=== PATIENT | female | born 1940 | race Caucasian/White ===

== ENCOUNTER 2017-01-14 22:24 | Inpatient (IN) | payer OTHER ==
[~2017-01-14] VITALS: Ht 162.6 cm; Wt 61.3 kg
[2017-01-14] MEDS ORDERED: TRAM-10 PO (22:42)
[2017-01-14] MEDS ORDERED: OXYC-164 PO (22:42)
[2017-01-14] MEDS ORDERED: ACET325T96 PO (22:50)
[2017-01-14] MEDS ORDERED: SODIENE PR (22:50)
[2017-01-14] MEDS ORDERED: MOML PO (22:50)
[2017-01-14] MEDS ORDERED: BISA10SU3 PR (22:50)
[2017-01-14] MEDS ORDERED: ASPITAB PO (22:50)
[2017-01-14] MEDS ORDERED: ONDA4TAB46 PO (22:50)
[2017-01-14] MEDS ORDERED: POTA20TA13 PO (22:54)
[2017-01-14] MEDS ORDERED: MELA3TAB PO (22:54)
[2017-01-14] MEDS ORDERED: CARV3.122 PO (22:54)
[2017-01-14] MEDS ORDERED: PANT40TA PO (22:54)
[2017-01-14] MEDS ORDERED: FERR325T5 PO (22:54)
[2017-01-14] MEDS ORDERED: SENN-61 PO (22:54)
[2017-01-14] MEDS ORDERED: SODIUM CHLORIDE 0.9% 1000ML 1,000 ML IV STA (23:01)
[2017-01-14 23:22] LABS: BASO % 0.3 %; BASO ABS # 0.02 K/uL (0-0.2); COMPLETE YES; HEMATOCRIT 26.9 % (37-47); IG% 0.3 %; LYMPH % 17.8 %; LYMPH ABS # 1.35 K/uL (1.2-3.4); MEAN CELL VOLUME 87.1 fL (80-100); MEAN CORPUSCULAR HEMOGLOBIN 29.8 pg (25-34); MEAN CORPUSCULAR HGB CONC 34.2 g/dl (32-36); MEAN PLATELET VOLUME 9.5 fL (7.4-10.4); MONO % 5.1 %; NEUT % 76.5 %; PLATELET COUNT 260 K/uL (130-400); RED BLOOD COUNT 3.09 M/uL (4.2-5.4)
[2017-01-14 23:27] LABS: URINE APPEARANCE TURBID (CLEAR); URINE BILIRUBIN NEG (NEG); URINE COLOR DK YELLOW; URINE EPITHELIAL CELL AUTO 20-30 /lpf (0-5); URINE NITRITE NEG (NEG); URINE SPECIFIC GRAVITY 1.019 (1.000-1.030); UROBILINOGEN NEG (NEG); ZZURINE CULT IF INDIC CATH YES
[2017-01-14 23:31] LABS: MANUAL MICROSCOPIC REQUIRED? NO; REVIEW REQ? YES
[2017-01-14 23:33] LABS: INR 1.6 (0.9-1.1); PARTIAL THROMBOPLASTIN RATIO 1.1; PROTHROMBIN TIME (PATIENT) 17.3 SECONDS (9.0-12.0)
[2017-01-14 23:40] LABS: BUN/CREATININE RATIO 24.1 (10-20); CALCIUM 8.4 mg/dl (8.5-10.1); CREATININE 1.7 mg/dl (0.60-1.20); MAGNESIUM 1.9 mg/dl (1.8-2.4); POTASSIUM 3.2 mmol/L (3.5-5.1)
[2017-01-14 23:42] LABS: URINE PATH CASTS 0-3 GRANULAR CASTS /lpf (0)
[2017-01-15] VITALS (10 sets, daily range): BP systolic 153–189; BP diastolic 84–97; PULSE 90–101; TEMP 36.5–36.7; O2SAT 97–100; Ht 162.6 cm; Wt 61.3 kg
[2017-01-15 00:04] LABS: THYROID STIMULATING HORMONE 1.46 uIu/ml (0.300-4.500)
[2017-01-15] MEDS ORDERED: CEFTRIAXONE SOD INJ 1 GM ADDVIAL IV STA (01:15)
--- NOTE | 2017-01-15 01:54 | EMERGENCY ROOM VISIT NOTE ---
History Report prepared by Elodia: Joey Segal Under the Supervision of: Dr. Lawrence Guerrero D.O. First contact with patient: 23:01 Chief Complaint: ILLNESS Stated Complaint: LETHARGIC History of Present Illness The patient is a 76 year old female who presents to the Emergency Room with complaints of constant lethargy beginning one day prior to arrival. As per nursing note, the patient was seen at [facility] yesterday for sepsis/ JAJA. It is noted the patient was discharged yesterday to [facility] for rehabilitation. The family states the patient is not at baseline, and they wanted her transferred to [facility] for evaluation. The group home reported no intake since the patient's arrival and no urine output in at least eight hours. It is noted the patient was vomiting today and had decreased mental status. The patient denies a headache and abdominal pain. The history is limited secondary to the patient's altered mental status. Source of History: other (nursing note) History Limited By: AMS Onset: one day CRECHE ATTENDANT Position: other (global) Quality: other (lethargy) Timing: constant Associated Symptoms: + vomiting, No abdominal pain, No headache Note: Associated symptoms: decrease mental status. Review of Systems The HPI and ROS are limited secondary to the patient's altered mental status. Past Medical & Surgical Medical Problems: (1) Acute renal failure (2) JAJA (acute kidney injury) (3) Elevated troponin (4) Poor fluid intake (5) Sepsis Family History Patient reports no known family medical history. Social History Smoking Status: Never Smoker Housing Status: group home Occupation Status: retired Current/Historical Medications Scheduled Carvedilol (Coreg), 3.125 MG PO BID Ferrous Sulfate (Ferrous Sulfate), 325 MG PO DAILY Melatonin (Melatonin), 3 MG PO HS Pantoprazole (Protonix), 40 MG PO DAILY Potassium Chloride Microencaps (Potassium Chloride Er), 20 MEQ PO DAILY Senna (Senokot), 17.2 MG PO DAILY Scheduled PRN Acetaminophen Tab (Tylenol), 650 MG PO Q4H PRN for Pain Bisacodyl (Dulcolax), 1 SUPP AK UD PRN for Constipation Diphenhydramine Citrate-Aspiri (Vijaya Pm), 1 TAB PO Q6H PRN for Itching Magnesium Hydroxide (Milk Of Magnesia), 30 ML PO UD PRN for Constipation Ondansetron Hcl (Zofran), 4 MG PO Q6H PRN for Nausea Oxycodone Hcl (Oxycodone Hcl), 10 MG PO Q8 PRN for Severe Pain Sodium Phosphate/Biphosphate (Fleet Enema), 1 EA AK UD PRN for Constipation Tramadol (Ultram), 50 MG PO Q8H PRN for Moderate Pain Allergies Coded Allergies: No Known Allergies (Unverified , 01/14/17) Physical Exam Vital Signs Date Time Temp Pulse Resp B/P Pulse Ox O2 Delivery O2 Flow Rate FiO2 01/14/17 23:50 90 16 147/85 100 Room Air 01/14/17 22:50 92 01/14/17 22:44 36.8 95 16 159/94 100 Room Air Physical Exam VITAL SIGNS: were reviewed as above. GENERAL:Non-toxic in appearance. SKIN: Warm dry and pink. HEAD: Normocephalic and atraumatic. OROPHARYNX: Is clear and moist NECK: Supple without lymphadenopathy or meningismus. LUNGS: clear. HEART: Regular rate and rhythm. ABDOMEN: Soft and nontender. EXTREMITIES: Warm and well perfused. NEUROLOGICALLY: Patient is drowsy but follows commands and answers questions appropriately. Denies any pain. Cranial nerves 2-12 are intact. There is no pronator drift. Cerebellar testing is within normal limits. There is no nystagmus. There is no facial droop. Speech is clear. Vision is grossly normal. MUSCULOSKELETAL: Good muscle tone. No evidence of trauma. Medical Decision & Procedures ER Provider Diagnostic Interpretation: Radiology results as stated below per my review and radiologist interpretation: CHEST XRAY: No acute disease. No pneumothorax. No pneumonia. CT HEAD: No ICH, mass effect or edema. No evidence of acute cortical stroke. Periventricular small vessel ischemic change. Visualized sinuses and mastoid air cells are clear. Radiologist: Miky Crocker MD Study ready at 23:47 and initial results transmitted at 00:05 Laboratory Results 01/14/17 23:15 Red Blood Count 3.09, Mean Corpuscular Volume 87.1, Mean Corpuscular Hemoglobin 29.8, Mean Corpuscular Hemoglobin Concent 34.2, Mean Platelet Volume 9.5, Neutrophils (%) (Auto) 76.5, Lymphocytes (%) (Auto) 17.8, Monocytes (%) (Auto) 5.1, Eosinophils (%) (Auto) 0.0, Basophils (%) (Auto) 0.3, Neutrophils # (Auto) 5.82, Lymphocytes # (Auto) 1.35, Monocytes # (Auto) 0.39, Eosinophils # (Auto) 0.00, Basophils # (Auto) 0.02 01/14/17 23:15 Test 01/14/17 22:30 01/14/17 23:15 Urine Color DK YELLOW Urine Appearance TURBID (CLEAR) Urine pH 5.0 (4.5-7.5) Urine Specific [place] 1.019 (1.000-1.030) Urine Protein 1+ (NEG) Urine Glucose (UA) NEG (NEG) Urine Ketones 1+ (NEG) Urine Occult Blood 2+ (NEG) Urine Nitrite NEG (NEG) Urine Bilirubin NEG (NEG) Urine Urobilinogen NEG (NEG) Urine Leukocyte Esterase MODERATE (NEG) Urine WBC (Auto) >30 /hpf (0-5) Urine RBC (Auto) 0-4 /hpf (0-4) Urine Hyaline Casts (Auto) 1-5 /lpf (0-5) Urine Epithelial Cells (Auto) 20-30 /lpf (0-5) Urine Bacteria (Auto) NEG (NEG) Urine Pathogenic Casts 0-3 GRANULAR CASTS /lpf (0) Urine Yeast (Auto) BUD W/ HYPHAE (NONE PRSENT) White Blood Count 7.60 K/uL (4.8-10.8) Red Blood Count 3.09 M/uL (4.2-5.4) Hemoglobin 9.2 g/dL (12.0-16.0) Hematocrit 26.9 % (37-47) Mean Corpuscular Volume 87.1 fL (80-100) Mean Corpuscular Hemoglobin 29.8 pg (25-34) Mean Corpuscular Hemoglobin Concent 34.2 g/dl (32-36) Platelet Count 260 K/uL (130-400) Mean Platelet Volume 9.5 fL (7.4-10.4) Neutrophils (%) (Auto) 76.5 % Lymphocytes (%) (Auto) 17.8 % Monocytes (%) (Auto) 5.1 % Eosinophils (%) (Auto) 0.0 % Basophils (%) (Auto) 0.3 % Neutrophils # (Auto) 5.82 K/uL (1.4-6.5) Lymphocytes # (Auto) 1.35 K/uL (1.2-3.4) Monocytes # (Auto) 0.39 K/uL (0.11-0.59) Eosinophils # (Auto) 0.00 K/uL (0-0.5) Basophils # (Auto) 0.02 K/uL (0-0.2) RDW Standard Deviation 42.4 fL (36.4-46.3) RDW Coefficient of Variation 13.3 % (11.5-14.5) Immature Granulocyte % (Auto) 0.3 % Immature Granulocyte # (Auto) 0.02 K/uL (0.00-0.02) Nucleated RBC Absolute Count (auto) 0.03 K/uL (0-0) Nucleated Red Blood Cells % 0.4 % Prothrombin Time 17.3 SECONDS (9.0-12.0) Prothromb Time International Ratio 1.6 (0.9-1.1) Activated Partial Thromboplast Time 27.3 SECONDS (21.0-31.0) Partial Thromboplastin Ratio 1.1 Anion Gap 10.0 mmol/L (3-11) Est Creatinine Clear Calc Drug Dose 25.1 ml/min Estimated GFR () 33.8 Estimated GFR (Non- 29.2 BUN/Creatinine Ratio 24.1 (10-20) Calcium Level 8.4 mg/dl (8.5-10.1) Magnesium Level 1.9 mg/dl (1.8-2.4) Total Bilirubin 0.9 mg/dl (0.2-1) Direct Bilirubin 0.2 mg/dl (0-0.2) Aspartate Amino Transf (AST/SGOT) 16 U/L (15-37) Alanine Aminotransferase (ALT/SGPT) 15 U/L (12-78) Alkaline Phosphatase 108 U/L (45-117) Total Creatine Kinase 87 U/L (26-192) Creatine Kinase MB 1.7 ng/ml (0.5-3.6) Creatine Kinase MB Ratio 2.0 (0-3.0) Troponin I 0.054 ng/ml (0-0.045) Total Protein 6.6 gm/dl (6.4-8.2) Albumin 2.8 gm/dl (3.4-5.0) Lipase 315 U/L (73-393) Thyroid Stimulating Hormone (TSH) 1.460 uIu/ml (0.300-4.500) Laboratory results as stated above per my review. Medications Administered Medications (Trade) Dose Ordered Sig/Donald Route Start Time Stop Time Status Last Admin Dose Admin Sodium Chloride (Nss 1000ml) 1,000 ml @ 300 mls/hr Q3H20M STAT IV 01/14/17 23:01 01/15/17 02:20 01/14/17 23:01 300 MLS/HR ECG Indication: altered mental status Rate (beats per minute): 95 Findings: T-wave inversion (Lateral), no ectopy, other (no acute injury) ED Course 2300: Previous medical records were reviewed. The patient was evaluated in room B7. A complete history and physical examination was performed. 2301: Ordered Sodium Chloride 1,000 ml @ 300 mls/hr IV. 0115: Ordered Rocephin Ing 1 gm IV. 1332: I spoke to Anuja Roa (Internal Medicine) about the patient's case, and she will follow the patient for further evaluation. Medical Decision Differential includes acute coronary syndrome, myocardial infarction, CVA, TIA, anemia, infection, pneumonia, UTI, pyelonephritis, poor nutrition, dehydration, electrolyte disturbance,hypoglycemia. This is a 76-year-old female who presents from a local nursing rehabilitation facility. The patient was discharged there from [facility] on the . The patient has not taken any oral fluids or food since she was admitted at the rehabilitation facility. She's had a progressive decline in alertness over the past 2 days. She was sent here for evaluation at the family' s request. The patient is somewhat of a poor historian but does respond to verbal stimuli. When asked if anything bothers her, she responds no. She denied having headaches, chest pains, shortness of breath or abdominal pains. She does not report any nausea or vomiting. She is not had fevers and she is afebrile here. Her vital signs are stable. Her physical exam did not reveal any focal deficits. Her abdomen is soft and nontender. The lungs were clear. Chest x-ray did not show acute disease. EKG shows some T-wave inversions laterally. Cardiac enzymes are slightly elevated. Her sodium, BUN and creatinine are all somewhat elevated. Urine suggest possible infection. The patient was treated with IV Rocephin and IV fluids. She will be seen by the hospitalist for further inpatient evaluation. Consults Time Called: 1326 Consulting Physician: Anuja Roa (Internal Medicine) Returned Call: [phone] I spoke to Anuja Roa (Internal Medicine) about the patient's case, and she will follow the patient for further evaluation. Impression Primary Impression: Lethargic Additional Impressions: UTI (urinary tract infection) Dehydration Renal insufficiency Hypernatremia Scribe Attestation The scribe's documentation has been prepared under my direction and personally reviewed by me in its entirety. I confirm that the note above accurately reflects all work, treatment, procedures, and medical decision making performed by me. Departure Information Dispostion Being Evaluated By Hospitalist (Anuja Roa (Internal Medicine) ) Referrals Shoaib Kelly MD (PCP) Problem Qualifiers
[2017-01-15] MEDS: SODIUM CHLORIDE 0.9% 1000ML 1,000 ML IV SCH ×2 (03:09→11:01)
--- NOTE | 2017-01-15 03:14 | History and Physical ---
History & Physical Date & Time of Service: Jan 15, 2017 at 03:13 Chief Complaint: Acute Renal Failure, Elevated Troponin, Poor Fluid Primary Care Physician: Shoaib Kelly .MD History of Present Illness This is a 76 yo F sent to [facility] with complain of generalized weakness, dehydration , poor PO intake pt was recently admitted to [facility] for Sepsis /JAJA , discharged to [facility] yesterday for continued rehab in the alf -pt was found to be confused, increased somnolence , lethargy , no PO intake since arrival to [place] , with decreased urine out put unable to get any history form the patient for confusion , altered mental status pt was found to be severely dehydrated with JAJA , hypernatremia possible UTI Past Medical/Surgical History Medical Problems: (1) JAJA (acute kidney injury) Status: Resolved (2) Sepsis Status: Resolved Family History Patient reports no known family medical history. Social History Smoking Status: Never Smoker Occupational Status: retired Allergies Coded Allergies: No Known Allergies (Unverified , 01/14/17) Home Medications Scheduled Carvedilol (Coreg), 3.125 MG PO BID Ferrous Sulfate (Ferrous Sulfate), 325 MG PO DAILY Melatonin (Melatonin), 3 MG PO HS Pantoprazole (Protonix), 40 MG PO DAILY Potassium Chloride Microencaps (Potassium Chloride Er), 20 MEQ PO DAILY Senna (Senokot), 17.2 MG PO DAILY Scheduled PRN Acetaminophen Tab (Tylenol), 650 MG PO Q4H PRN for Pain Bisacodyl (Dulcolax), 1 SUPP MT UD PRN for Constipation Diphenhydramine Citrate-Aspiri (Vijaya Pm), 1 TAB PO Q6H PRN for Itching Magnesium Hydroxide (Milk Of Magnesia), 30 ML PO UD PRN for Constipation Ondansetron Hcl (Zofran), 4 MG PO Q6H PRN for Nausea Oxycodone Hcl (Oxycodone Hcl), 10 MG PO Q8 PRN for Severe Pain Sodium Phosphate/Biphosphate (Fleet Enema), 1 EA MT UD PRN for Constipation Tramadol (Ultram), 50 MG PO Q8H PRN for Moderate Pain Review of Systems unable to obtain due to altered mental status Physical Exam Vital Signs Date Time Temp Pulse Resp B/P Pulse Ox O2 Delivery O2 Flow Rate FiO2 01/15/17 02:23 92 18 149/89 100 01/14/17 23:50 90 16 147/85 100 Room Air 01/14/17 22:50 92 01/14/17 22:44 36.8 95 16 159/94 100 Room Air General Appearance: no apparent distress Eyes: sclerae normal ENT: + pertinent finding (dry oral mucosa ) Respiratory/Chest: lungs clear, normal breath sounds, no respiratory distress Cardiovascular: regular rate, rhythm Abdomen/GI: non tender, soft Extremities/Musculoskelatal: no pedal edema Neurologic/Psych: + disoriented, + pertinent finding (lethergic , unable to answer simple questions ) Diagnostics Laboratory Results Results Past 24 Hours Test 01/14/17 22:30 01/14/17 23:15 Range/Units Urine Color DK YELLOW Urine Appearance TURBID CLEAR Urine pH 5.0 4.5-7.5 Urine Specific [place] 1.019 1.000-1.030 Urine Protein 1+ NEG Urine Glucose (UA) NEG NEG Urine Ketones 1+ NEG Urine Occult Blood 2+ NEG Urine Nitrite NEG NEG Urine Bilirubin NEG NEG Urine Urobilinogen NEG NEG Urine Leukocyte Esterase MODERATE NEG Urine WBC (Auto) >30 0-5 /hpf Urine RBC (Auto) 0-4 0-4 /hpf Urine Hyaline Casts (Auto) 1-5 0-5 /lpf Urine Epithelial Cells (Auto) 20-30 0-5 /lpf Urine Bacteria (Auto) NEG NEG Urine Pathogenic Casts 0-3 GRANULAR CASTS 0 /lpf Urine Yeast (Auto) BUD W/ HYPHAE NONE PRSENT White Blood Count 7.60 4.8-10.8 K/uL Red Blood Count 3.09 4.2-5.4 M/uL Hemoglobin 9.2 12.0-16.0 g/dL Hematocrit 26.9 37-47 % Mean Corpuscular Volume 87.1 80-100 fL Mean Corpuscular Hemoglobin 29.8 25-34 pg Mean Corpuscular Hemoglobin Concent 34.2 32-36 g/dl Platelet Count 260 130-400 K/uL Mean Platelet Volume 9.5 7.4-10.4 fL Neutrophils (%) (Auto) 76.5 % Lymphocytes (%) (Auto) 17.8 % Monocytes (%) (Auto) 5.1 % Eosinophils (%) (Auto) 0.0 % Basophils (%) (Auto) 0.3 % Neutrophils # (Auto) 5.82 1.4-6.5 K/uL Lymphocytes # (Auto) 1.35 1.2-3.4 K/uL Monocytes # (Auto) 0.39 0.11-0.59 K/uL Eosinophils # (Auto) 0.00 0-0.5 K/uL Basophils # (Auto) 0.02 0-0.2 K/uL RDW Standard Deviation 42.4 36.4-46.3 fL RDW Coefficient of Variation 13.3 11.5-14.5 % Immature Granulocyte % (Auto) 0.3 % Immature Granulocyte # (Auto) 0.02 0.00-0.02 K/uL Nucleated RBC Absolute Count (auto) 0.03 0-0 K/uL Nucleated Red Blood Cells % 0.4 % Prothrombin Time 17.3 9.0-12.0 SECONDS Prothromb Time International Ratio 1.6 0.9-1.1 Activated Partial Thromboplast Time 27.3 21.0-31.0 SECONDS Partial Thromboplastin Ratio 1.1 Sodium Level 151 136-145 mmol/L Potassium Level 3.2 3.5-5.1 mmol/L Chloride Level 110 98-107 mmol/L Carbon Dioxide Level 31 21-32 mmol/L Anion Gap 10.0 3-11 mmol/L Blood Urea Nitrogen 41 7-18 mg/dl Creatinine 1.70 0.60-1.20 mg/dl Est Creatinine Clear Calc Drug Dose 25.1 ml/min Estimated GFR () 33.8 Estimated GFR (Non- 29.2 BUN/Creatinine Ratio 24.1 10-20 Random Glucose 119 70-99 mg/dl Calcium Level 8.4 8.5-10.1 mg/dl Magnesium Level 1.9 1.8-2.4 mg/dl Total Bilirubin 0.9 0.2-1 mg/dl Direct Bilirubin 0.2 0-0.2 mg/dl Aspartate Amino Transf (AST/SGOT) 16 15-37 U/L Alanine Aminotransferase (ALT/SGPT) 15 12-78 U/L Alkaline Phosphatase 108 45-117 U/L Total Creatine Kinase 87 26-192 U/L Creatine Kinase MB 1.7 0.5-3.6 ng/ml Creatine Kinase MB Ratio 2.0 0-3.0 Troponin I 0.054 0-0.045 ng/ml Total Protein 6.6 6.4-8.2 gm/dl Albumin 2.8 3.4-5.0 gm/dl Lipase 315 73-393 U/L Thyroid Stimulating Hormone (TSH) 1.460 0.300-4.500 uIu/ml Microbiology Results 01/14/17 Urine Culture, Received Pending CXR normal Impression Assessment and Plan DEHYDRATION /ACUTE KIDNEY INJURY : possible due to poor PO intake started with IV hydration Cr elevated to 1.7 follow PRP avoid nephrotoxins Nephrology eval requested MILD ELEVATION OF TROPONIN : possible due to JAJA pt unable to verbalize chest discomfort EKG wave inversion in lat leads monitor in Tele serial cardiac markers resting ECHO ordered CONFUSION /LETHARGY: due to metabolic encephalopathy due to above cont to correct for dehydration monitor clinically caution for sun downing POSSIBLE UTI : UA grossly positive possible causing poor PO intake /dehydration IV Rocephin empirically follow urine culture HYPERNATREMIA: Due to above IV F with NSS follow PRP closely avoid rapid correction nephrology consulted CODE STATUS : full code DVT PROPHYLAXIS : sub q heparin DISPOSITION : recently discharged to rehab PT/OT eval requested return to [facility] for continued rehab once medically stable social service consulted for discharge planning VTE Prophylaxis VTE Risk Assessment Done? Y/N: Yes Risk Level: Moderate
[2017-01-15] MEDS ORDERED: ONDANSETRON 4 MG TAB PO PRN (03:15)
[2017-01-15] MEDS ORDERED: POLYETHYLENE (MIRALAX) 17 GM PACK PO PRN (03:15)
[2017-01-15] MEDS ORDERED: MAGNESIUM HYDROXIDE SUSP 30 ML UDC PO PRN ×2 (03:15)
[2017-01-15] MEDS ORDERED: OXYCODONE HCL IR 5 MG TAB (IMMEDIATE RELEASE) PO PRN (03:15)
[2017-01-15] MEDS ORDERED: ALUMINUM/MAGNESIUM/SIMETH (MAALOX MAX) 30 ML UDC PO PRN (03:15)
[2017-01-15] MEDS ORDERED: NITROGLYCERIN 0.4 MG SL PER TAB CHARGE SL PRN (03:15)
[2017-01-15] MEDS ORDERED: TRAMADOL HCL 50 MG TAB PO PRN (03:15)
[2017-01-15] MEDS ORDERED: ACETAMINOPHEN 325 MG TAB PO PRN ×2 (03:15)
[2017-01-15] MEDS: HEPARIN SOD 5000 UNIT/0.5 ML CARP SQ SCH ×3 (05:50→21:20)
--- NOTE | 2017-01-15 06:18 | DIAGNOSTIC IMAGING REPORT ---
CHEST ONE VIEW PORTABLE CLINICAL HISTORY: Altered mental status. COMPARISON STUDY: No previous studies for comparison. FINDINGS: The heart is normal in size. There is aortic tortuosity/ectasia. There is no focal pulmonary consolidation. There is no overt failure. There are no pleural effusions.[ IMPRESSION: No active disease in the chest. Electronically signed by: Contrersa Lowe M.D. 01/15/2017 6:16 AM Dictated Date/Time: 01/15/2017 6:15 AM
--- NOTE | 2017-01-15 06:46 | DIAGNOSTIC IMAGING REPORT ---
CT HEAD WITHOUT CONTRAST (CT) CLINICAL HISTORY: Acute change in mental status COMPARISON STUDY: No previous studies for comparison. TECHNIQUE: Axial CT of the brain is performed from the vertex to the skull base. IV contrast was not administered for this examination. CT DOSE: 537.48 mGy.cm FINDINGS: No intra or extra-axial mass lesions are visualized. There is no CT evidence of acute cortical infarction. There is no evidence of midline shift. There is no acute hemorrhage. No calvarial fractures are visualized. There are patchy white matter hypodensities likely on a small vessel basis. There is no evidence of pathologic ventricular dilatation. There is no evidence of acute sinusitis IMPRESSION: No acute intracranial findings Electronically signed by: Contreras Lowe M.D. 01/15/2017 6:44 AM Dictated Date/Time: 01/15/2017 6:44 AM
[2017-01-15] MEDS: POTASSIUM CHLORIDE 20 MEQ TABCR PO SCH (07:36)
[2017-01-15] MEDS: CARVEDILOL 3.125 MG TAB PO SCH ×2 (07:36→19:47)
[2017-01-15] MEDS: FERROUS SULFATE 325 MG TAB PO SCH (07:37)
[2017-01-15] MEDS: PANTOprazole SOD 40 MG TAB PO SCH (07:37)
[2017-01-15] MEDS: SENNA 8.6 MG TAB PO SCH (07:37)
[2017-01-15 08:23] LABS: CKMB/CK RATIO 2.6 (0-3.0)
[2017-01-15 10:05] LABS: BUN/CREATININE RATIO 25.1 (10-20); CALCIUM 8.6 mg/dl (8.5-10.1); CREATININE 1.5 mg/dl (0.60-1.20); POTASSIUM 3.2 mmol/L (3.5-5.1)
--- NOTE | 2017-01-15 12:08 | Progress Note ---
Internal Med Progress Note Date of Service: Jan 15, 2017. Provider Documentation: SUBJECTIVE: The patient was seenand examined Pleasantly confused,Pulled out IVF Denies any complaints OBJECTIVE: Vital Signs-as noted below Exam: General-no distress at rest Eyes-normal ENT-normal Neck-supple Lungs-Clear to auscultate bilaterally Heart-Regular,no murmur appreciated Abdomen-Benign,no masses,bowel sound present Extremities-No edema Neuro-AA Pleasantly confused Generally weak and Lethargic Lab data as noted below. ASSESSMENT & PLAN: ACUTE KIDNEY INJURY Secondary to DEHYDRATION due to poor oral intake Has been on IVF Advised more fluid orally Creatinine is improved to 1.50 from 1.70 Avoid nephrotoxins Nephrology eval requested HYPERNATREMIA: Due to not been eating and or drinking IV F with NSS Remains high at 152 Continue IFV and increase oral intake MILD ELEVATION OF TROPONIN : possible due to JAJA pt unable to verbalize chest discomfort EKG wave inversion in lat leads Doubt any ACS CONFUSION /LETHARGY: Likely due to metabolic encephalopathy due to above Cont to correct for dehydration Monitor POSSIBLE UTI : UA grossly positive possible causing poor PO intake /dehydration IV Rocephin empirically follow urine culture -pending CODE STATUS : full code DVT PROPHYLAXIS : sub q heparin DISPOSITION : recently discharged to rehab PT/OT eval requested return to [facility] for continued rehab once medically stable social service consulted for discharge planning DVT PROPHYLAXIS [] DISPOSITION [] Vital Signs: Date Time Temp Pulse Resp B/P Pulse Ox O2 Delivery O2 Flow Rate FiO2 01/15/17 08:00 100 Room Air 01/15/17 07:56 36.6 90 16 166/85 100 Room Air 01/15/17 04:00 100 Room Air 01/15/17 03:03 36.5 94 28 153/84 100 Room Air 01/15/17 02:23 92 18 149/89 100 01/14/17 23:50 90 16 147/85 100 Room Air 01/14/17 22:50 92 01/14/17 22:44 36.8 95 16 159/94 100 Room Air Lab Results: Results Past 24 Hours Test 01/14/17 22:30 01/14/17 23:15 01/15/17 06:45 01/15/17 09:13 Range/Units Urine Color DK YELLOW Urine Appearance TURBID CLEAR Urine pH 5.0 4.5-7.5 Urine Specific [place] 1.019 1.000-1.030 Urine Protein 1+ NEG Urine Glucose (UA) NEG NEG Urine Ketones 1+ NEG Urine Occult Blood 2+ NEG Urine Nitrite NEG NEG Urine Bilirubin NEG NEG Urine Urobilinogen NEG NEG Urine Leukocyte Esterase MODERATE NEG Urine WBC (Auto) >30 0-5 /hpf Urine RBC (Auto) 0-4 0-4 /hpf Urine Hyaline Casts (Auto) 1-5 0-5 /lpf Urine Epithelial Cells (Auto) 20-30 0-5 /lpf Urine Bacteria (Auto) NEG NEG Urine Pathogenic Casts 0-3 GRANULAR CASTS 0 /lpf Urine Yeast (Auto) BUD W/ HYPHAE NONE PRSENT White Blood Count 7.60 4.8-10.8 K/uL Red Blood Count 3.09 4.2-5.4 M/uL Hemoglobin 9.2 12.0-16.0 g/dL Hematocrit 26.9 37-47 % Mean Corpuscular Volume 87.1 80-100 fL Mean Corpuscular Hemoglobin 29.8 25-34 pg Mean Corpuscular Hemoglobin Concent 34.2 32-36 g/dl Platelet Count 260 130-400 K/uL Mean Platelet Volume 9.5 7.4-10.4 fL Neutrophils (%) (Auto) 76.5 % Lymphocytes (%) (Auto) 17.8 % Monocytes (%) (Auto) 5.1 % Eosinophils (%) (Auto) 0.0 % Basophils (%) (Auto) 0.3 % Neutrophils # (Auto) 5.82 1.4-6.5 K/uL Lymphocytes # (Auto) 1.35 1.2-3.4 K/uL Monocytes # (Auto) 0.39 0.11-0.59 K/uL Eosinophils # (Auto) 0.00 0-0.5 K/uL Basophils # (Auto) 0.02 0-0.2 K/uL RDW Standard Deviation 42.4 36.4-46.3 fL RDW Coefficient of Variation 13.3 11.5-14.5 % Immature Granulocyte % (Auto) 0.3 % Immature Granulocyte # (Auto) 0.02 0.00-0.02 K/uL Nucleated RBC Absolute Count (auto) 0.03 0-0 K/uL Nucleated Red Blood Cells % 0.4 % Prothrombin Time 17.3 9.0-12.0 SECONDS Prothromb Time International Ratio 1.6 0.9-1.1 Activated Partial Thromboplast Time 27.3 21.0-31.0 SECONDS Partial Thromboplastin Ratio 1.1 Sodium Level 151 152 136-145 mmol/L Potassium Level 3.2 3.2 3.5-5.1 mmol/L Chloride Level 110 116 98-107 mmol/L Carbon Dioxide Level 31 26 21-32 mmol/L Anion Gap 10.0 10.0 3-11 mmol/L Blood Urea Nitrogen 41 38 7-18 mg/dl Creatinine 1.70 1.50 0.60-1.20 mg/dl Est Creatinine Clear Calc Drug Dose 25.1 27.6 ml/min Estimated GFR () 33.8 39.4 Estimated GFR (Non- 29.2 34.0 BUN/Creatinine Ratio 24.1 25.1 10-20 Random Glucose 119 115 70-99 mg/dl Calcium Level 8.4 8.6 8.5-10.1 mg/dl Magnesium Level 1.9 1.8-2.4 mg/dl Total Bilirubin 0.9 0.2-1 mg/dl Direct Bilirubin 0.2 0-0.2 mg/dl Aspartate Amino Transf (AST/SGOT) 16 15-37 U/L Alanine Aminotransferase (ALT/SGPT) 15 12-78 U/L Alkaline Phosphatase 108 45-117 U/L Total Creatine Kinase 87 73 26-192 U/L Creatine Kinase MB 1.7 1.9 0.5-3.6 ng/ml Creatine Kinase MB Ratio 2.0 2.6 0-3.0 Troponin I 0.054 0.055 0-0.045 ng/ml Total Protein 6.6 6.4-8.2 gm/dl Albumin 2.8 3.4-5.0 gm/dl Lipase 315 73-393 U/L Thyroid Stimulating Hormone (TSH) 1.460 0.300-4.500 uIu/ml Microbiology Results 01/15/17 MRSA DNA Surveillance Screen - Final, Complete Specimen Negative for MRSA by DNA Probe 01/14/17 Urine Culture, Received Pending
[2017-01-15 13:16] LABS: BUN/CREATININE RATIO 28.6 (10-20); CALCIUM 8.3 mg/dl (8.5-10.1); CREATININE 1.3 mg/dl (0.60-1.20); POTASSIUM 3.3 mmol/L (3.5-5.1)
[2017-01-15 13:47] LABS: CKMB/CK RATIO 2.4 (0-3.0)
[2017-01-15 16:38] LABS: BUN/CREATININE RATIO 26.3 (10-20); CALCIUM 8.3 mg/dl (8.5-10.1); CREATININE 1.4 mg/dl (0.60-1.20); POTASSIUM 3.3 mmol/L (3.5-5.1)
--- NOTE | 2017-01-15 17:27 | Nephrology Consultation ---
Nephrology Consultation Date of Consultation: Jan 15, 2017. Attending Physician: Dr Gamez Requesting Physician: Dr Austin Reason for Consultation: hypernatremia, jaja on ckd History of Present Illness 76 year old female w/ unknown baseline MS, recent prolonged [facility] admission for JAJA and ? urosepsis, failure to thrive past 4-6 wks, R hip fracture after a fall s/p R IM nailing earlier this year sent from rehab less than 36 hrs after [facility] JAJA d/c d/t concerns about poor po intake, worsening MS w/ lethargy, concern for decreased UOP. She had been living at home with family nearby earlier this year, had significant N/V and difficulty taking po reliably leading to weakness and recurrent falls. She unfortunately fractured her R hip then underwent IM nail procedure and was d/c to rehab then home. She fell again and came to [facility] last month for admission from 01/03-01/13. Her baseline creatinine prior to that admission had been 0.8; on admission to [facility] was 2.6; trended down to 1.6 by hospital d/c. Treated for sepsis, possibly from UTI. Seen by GI, nephro, ENT, ortho, critical care that admission. No EGD felt necessary, though esophagogram showed distal esophageal motility slowing. On admission here late last evening, her sodium was 151, K 3.2, creatinine 1.7. Urine was contaminated but did have granular casts and other evidence of inflammation v infection. Overnight she pulled out several IVs, was very agitated, and has refused po generally, at least when I saw her on rounds at about 10 am. Past Medical/Surgical History Medical Problems: (1) Dehydration Status: Acute (2) Hypernatremia Status: Acute (3) Lethargic Status: Acute (4) Renal insufficiency Status: Acute (5) UTI (urinary tract infection) Status: Acute Family History Patient reports no known family medical history. Social History Smoking Status: Unknown if Ever Smoked Alcohol Use: none Drug Use: none Housing Status: alf Occupation Status: retired Allergies Coded Allergies: No Known Allergies (Unverified , 01/14/17) Medications Current Inpatient Medications Medications (Trade) Dose Ordered Sig/Donald Route Start Time Stop Time Status Last Admin Dose Admin Heparin Sodium (Porcine) 5000 unit 5,000 unit Q8 SQ 4/8/17 06:00 02/14/17 05:59 01/15/17 14:33 5,000 UNIT Sodium Chloride (Nss 1000ml) 1,000 ml @ 100 mls/hr Q10H IV 01/15/17 03:09 02/14/17 03:08 01/15/17 11:01 100 MLS/HR Acetaminophen (Tylenol Tab) 650 mg Q4H PRN PO 01/15/17 03:15 02/14/17 03:14 Al Hydrox/Mg Hydrox/Simethicone (Maalox Max Susp) 15 ml Q4H PRN PO 01/15/17 03:15 02/14/17 03:14 Magnesium Hydroxide (Milk Of Magnesia Susp) 30 ml Q12H PRN PO 01/15/17 03:15 02/14/17 03:14 Ondansetron HCl (Zofran Inj) 4 mg Q6H PRN IV 01/15/17 03:15 02/14/17 03:14 Nitroglycerin (Nitrostat Tab) 0.4 mg UD PRN SL 01/15/17 03:15 02/14/17 03:14 Polyethylene 17 gm 17 gm DAILY PRN PO 01/15/17 03:15 02/14/17 03:14 Ceftriaxone Sodium/Dextrose (Rocephin Inj/ Dextrose Add-[place] 50ML) 50 ml @ 100 mls/hr Q24H IV 01/16/17 01:00 01/19/17 01:29 Carvedilol (Coreg Tab) 3.125 mg BID PO 01/15/17 09:00 02/14/17 08:59 01/15/17 07:36 3.125 MG Ferrous Sulfate (Feosol Tab) 325 mg DAILY PO 01/15/17 09:00 02/14/17 08:59 01/15/17 07:37 325 MG Ondansetron HCl (Zofran Tab) 4 mg Q6H PRN PO 01/15/17 03:15 02/14/17 03:14 Pantoprazole Sodium (Protonix Tab) 40 mg DAILY PO 01/15/17 09:00 02/14/17 08:59 01/15/17 07:37 40 MG Potassium Chloride (Klor-Con Tab) 20 meq DAILY PO 01/15/17 09:00 02/14/17 08:59 01/15/17 07:36 20 MEQ Senna (Senokot Tab) 17.2 mg DAILY PO 01/15/17 09:00 02/14/17 08:59 01/15/17 07:37 17.2 MG Tramadol HCl (Ultram Tab) 50 mg Q8H PRN PO 01/15/17 03:15 02/14/17 03:14 Miscellaneous Information (Order Awaiting Action) 1 ea QS N/A 01/15/17 08:00 02/14/17 07:59 Oxycodone HCl (Roxicodone Immediate Rel Tab) 10 mg Q8 PRN PO 01/15/17 03:15 02/14/17 03:14 Home Meds and Scripts Medications Dose Route/Sig Max Daily Dose Days Date Category Dose Instructions Protonix (Pantoprazole Sodium) 40 Mg Tab 40 Mg PO DAILY 01/14/17 Reported Senokot (Senna) 8.6 Mg Tab 17.2 Mg PO DAILY 01/14/17 Reported HOLD FOR LOOSE STOOLS Potassium Chloride Er (Potassium Chloride Microencaps) 20 Meq Tab 20 Meq PO DAILY 01/14/17 Reported Melatonin 3 Mg Tab 3 Mg PO HS 01/14/17 Reported Ferrous Sulfate 325 Mg Tab 325 Mg PO DAILY 01/14/17 Reported Coreg (Carvedilol) 3.125 Mg Tab 3.125 Mg PO BID 01/14/17 Reported Zofran (Ondansetron HCl) 4 Mg Tab 4 Mg PO Q6H PRN 01/14/17 Reported Vijaya Pm (Diphenhydramine Citrate-Aspiri) 1 Tab Tab 1 Tab PO Q6H PRN 01/14/17 Reported Tylenol (Acetaminophen) 325 Mg Tab 650 Mg PO Q4H PRN 01/14/17 Reported NEEDED FOR PAIN RATED 1-3 ON A SCALE OF "0-10". DO NOT EXCEED 3 GM APAP/DAY. Milk Of Magnesia (Magnesium Hydroxide) 30 Ml Susp 30 Ml PO UD PRN 01/14/17 Reported NEEDED EVERY DAY FOR NO BOWEL MOVEMENT FOR 7 SHIFTS Fleet Enema (Sodium Phosphate/Biphosphate) Estephania [address] UD PRN 01/14/17 Reported NEEDED EVERY 3 DAYS IF DULCOLAX SUPPOSITORY WAS INEFFECTIVE Dulcolax (Bisacodyl) 10 Mg Sup [address] UD PRN 01/14/17 Reported NEEDED EVERY 3 DAYS IF MOM INEFFECTIVE Ultram (Tramadol HCl) 50 Mg Tab 50 Mg PO Q8H PRN 01/14/17 Reported NEEDED FOR MODERATE PAIN RATED 4-6 ON A SCALE OF "0- 10" Oxycodone Hcl 10 Mg Tab 10 Mg PO Q8 PRN 01/14/17 Reported NEEDED FOR SEVERE PAIN RATED 7-10 ON A SCALE OF "0-10 ". Review of Systems unable to obtain ros d/t mental status and agitation Physical Exam Date Time Temp Pulse Resp B/P Pulse Ox O2 Delivery O2 Flow Rate FiO2 01/15/17 16:15 100 Room Air 01/15/17 16:14 36.6 95 18 184/92 100 Room Air 01/15/17 12:08 99 Room Air 01/15/17 12:05 36.5 92 18 189/95 99 Room Air 01/15/17 08:00 100 Room Air 01/15/17 07:56 36.6 90 16 166/85 100 Room Air 01/15/17 04:00 100 Room Air 01/15/17 03:03 36.5 94 28 153/84 100 Room Air 01/15/17 02:23 92 18 149/89 100 01/14/17 23:50 90 16 147/85 100 Room Air 01/14/17 22:50 92 01/14/17 22:44 36.8 95 16 159/94 100 Room Air 24-Hour Column 01/15/17 08:00 Intake Total 162 ml Balance 162 ml General Appearance: WD/WN, + moderate distress (agitated about having her feet touched ), + pertinent finding (lying flat on ra) Eyes: EOMI ENT: hearing grossly normal Neck: supple Respiratory/Chest: lungs clear, no respiratory distress, + decreased breath sounds Cardiovascular: regular rate, rhythm, no edema Abdomen: normal bowel sounds, non tender, soft Extremities: normal inspection, no pedal edema Neurologic/Psych: alert, + motor weakness, + disoriented Skin: no jaundice, warm/dry, no rash Diagnostics Last 24 Hours Test 01/14/17 22:30 01/14/17 23:15 01/15/17 06:45 01/15/17 09:13 Urine Color DK YELLOW Urine Appearance TURBID Urine pH 5.0 Urine Specific [place] 1.019 Urine Protein 1+ Urine Glucose (UA) NEG Urine Ketones 1+ Urine Occult Blood 2+ Urine Nitrite NEG Urine Bilirubin NEG Urine Urobilinogen NEG Urine Leukocyte Esterase MODERATE Urine WBC (Auto) >30 /hpf Urine RBC (Auto) 0-4 /hpf Urine Hyaline Casts (Auto) 1-5 /lpf Urine Epithelial Cells (Auto) 20-30 /lpf Urine Bacteria (Auto) NEG Urine Pathogenic Casts 0-3 GRANULAR CASTS /lpf Urine Yeast (Auto) BUD W/ HYPHAE White Blood Count 7.60 K/uL Red Blood Count 3.09 M/uL Hemoglobin 9.2 g/dL Hematocrit 26.9 % Mean Corpuscular Volume 87.1 fL Mean Corpuscular Hemoglobin 29.8 pg Mean Corpuscular Hemoglobin Concent 34.2 g/dl Platelet Count 260 K/uL Mean Platelet Volume 9.5 fL Neutrophils (%) (Auto) 76.5 % Lymphocytes (%) (Auto) 17.8 % Monocytes (%) (Auto) 5.1 % Eosinophils (%) (Auto) 0.0 % Basophils (%) (Auto) 0.3 % Neutrophils # (Auto) 5.82 K/uL Lymphocytes # (Auto) 1.35 K/uL Monocytes # (Auto) 0.39 K/uL Eosinophils # (Auto) 0.00 K/uL Basophils # (Auto) 0.02 K/uL RDW Standard Deviation 42.4 fL RDW Coefficient of Variation 13.3 % Immature Granulocyte % (Auto) 0.3 % Immature Granulocyte # (Auto) 0.02 K/uL Nucleated RBC Absolute Count (auto) 0.03 K/uL Nucleated Red Blood Cells % 0.4 % Prothrombin Time 17.3 SECONDS Prothromb Time International Ratio 1.6 Activated Partial Thromboplast Time 27.3 SECONDS Partial Thromboplastin Ratio 1.1 Sodium Level 151 mmol/L 152 mmol/L Potassium Level 3.2 mmol/L 3.2 mmol/L Chloride Level 110 mmol/L 116 mmol/L Carbon Dioxide Level 31 mmol/L 26 mmol/L Anion Gap 10.0 mmol/L 10.0 mmol/L Blood Urea Nitrogen 41 mg/dl 38 mg/dl Creatinine 1.70 mg/dl 1.50 mg/dl Est Creatinine Clear Calc Drug Dose 25.1 ml/min 27.6 ml/min Estimated GFR () 33.8 39.4 Estimated GFR (Non- 29.2 34.0 BUN/Creatinine Ratio 24.1 25.1 Random Glucose 119 mg/dl 115 mg/dl Calcium Level 8.4 mg/dl 8.6 mg/dl Magnesium Level 1.9 mg/dl Total Bilirubin 0.9 mg/dl Direct Bilirubin 0.2 mg/dl Aspartate Amino Transf (AST/SGOT) 16 U/L Alanine Aminotransferase (ALT/SGPT) 15 U/L Alkaline Phosphatase 108 U/L Total Creatine Kinase 87 U/L 73 U/L Creatine Kinase MB 1.7 ng/ml 1.9 ng/ml Creatine Kinase MB Ratio 2.0 2.6 Troponin I 0.054 ng/ml 0.055 ng/ml Total Protein 6.6 gm/dl Albumin 2.8 gm/dl Lipase 315 U/L Thyroid Stimulating Hormone (TSH) 1.460 uIu/ml Test 01/15/17 12:19 01/15/17 12:55 01/15/17 16:05 Sodium Level 153 mmol/L 154 mmol/L Potassium Level 3.3 mmol/L 3.3 mmol/L Chloride Level 116 mmol/L 117 mmol/L Carbon Dioxide Level 28 mmol/L 25 mmol/L Anion Gap 9.0 mmol/L 12.0 mmol/L Blood Urea Nitrogen 37 mg/dl 37 mg/dl Creatinine 1.30 mg/dl 1.40 mg/dl Est Creatinine Clear Calc Drug Dose 31.9 ml/min 29.6 ml/min Estimated GFR () 46.8 42.8 Estimated GFR (Non- 40.4 36.9 BUN/Creatinine Ratio 28.6 26.3 Random Glucose 104 mg/dl 97 mg/dl Calcium Level 8.3 mg/dl 8.3 mg/dl Total Creatine Kinase 74 U/L Creatine Kinase MB 1.8 ng/ml Creatine Kinase MB Ratio 2.4 Troponin I 0.042 ng/ml Diagnostic Radiology: head ct and CXR > no acute process Assessment & Plan 76 y/o F w/ HTN, recent R hip procedure, recent JAJA from which she is still recovering,, failure to thrive past 4-6 wks sent from rehab less than 36 hrs after d/c w/ hypernatremia, hypokalemia, ongoing renal failure, poor po/uop and altered mental status. She is hardly taking po and has pulled out at least 2 IVS. Baseline creatinine 0.8 earlier this year. d/c creat 01/13 1.4 w/ Na 148. Chronic hypernatremia -change NS give hyperchloremia, HTN, hypokalemia to D5W same rate with 20 mEq K -BMP q12h -encourage po intake as below Decreased po intake/malnutrition/failure to thrive -ongoing issue for this pt including at last hospital stay -had been advised at recent hospital d/c to eat frequent small meals and mechanical soft diet -consider calorie count/swallow eval Altered mental status > metabolic encephalopathy -given recent ortho procedure > ESR and blood cultures -baseline mental status not known > no mention of or meds for dementia Acute renal failure> had ATN last hospital stay; at least partly prerenal component here as she is improving w/ fluids Baseline creatinine 0.8; may not reach this again -bmp as above -f/u pending urine cx Appreciate consult; will follow with you.
[2017-01-15] MEDS: POTASSIUM CHLORIDE INJ 20 MEQ in DEXTROSE 5% 1000ML 1,000 ML IV SCH (18:04)
[2017-01-15] MEDS ORDERED: NON-FORMULARY MEDICATION (Melatonin 3 MG) PO SCH (21:00)
[2017-01-16] VITALS (9 sets, daily range): BP systolic 151–176; BP diastolic 82–94; PULSE 70–92; TEMP 36.3–36.6; O2SAT 94–100
[2017-01-16] MEDS: CEFTRIAXONE SOD INJ 1 GM in DEXTROSE 5% ADD-VANTAGE 50ML 50 ML IV SCH (01:00)
[2017-01-16] MEDS: POTASSIUM CHLORIDE INJ 20 MEQ in DEXTROSE 5% 1000ML 1,000 ML IV SCH (03:12)
[2017-01-16] MEDS: HEPARIN SOD 5000 UNIT/0.5 ML CARP SQ SCH ×3 (05:41→20:37)
[2017-01-16 07:39] LABS: HEMATOCRIT 22.1 % (37-47); MEAN CORPUSCULAR HGB CONC 34.8 g/dl (32-36); MEAN PLATELET VOLUME 9.3 fL (7.4-10.4); PLATELET COUNT 219 K/uL (130-400); RED BLOOD COUNT 2.57 M/uL (4.2-5.4); WHITE BLOOD COUNT 6.43 K/uL (4.8-10.8)
[2017-01-16 08:08] LABS: BUN/CREATININE RATIO 24.4 (10-20); CALCIUM 7.8 mg/dl (8.5-10.1); CREATININE 1.2 mg/dl (0.60-1.20); MAGNESIUM 1.7 mg/dl (1.8-2.4); POTASSIUM 2.9 mmol/L (3.5-5.1)
[2017-01-16 08:11] LABS: CHOLESTEROL/HDL RATIO 4.3
[2017-01-16] MEDS: POTASSIUM CHLORIDE 20 MEQ TABCR PO SCH ×2 (08:38→09:00)
[2017-01-16] MEDS: CARVEDILOL 3.125 MG TAB PO SCH ×2 (08:38→20:37)
[2017-01-16] MEDS: PANTOprazole SOD 40 MG TAB PO SCH ×2 (08:38→09:00)
[2017-01-16] MEDS: SENNA 8.6 MG TAB PO SCH ×2 (08:38→09:00)
[2017-01-16] MEDS: FERROUS SULFATE 325 MG TAB PO SCH ×2 (08:39→09:00)
[2017-01-16] MEDS: POTASSIUM CHLR 10 MEQ / WTR 10 MEQ in PREMIXED WATER 100 ML IV SCH ×2 (09:00→10:18)
--- NOTE | 2017-01-16 09:16 | ECHOCARDIOGRAM REPORT ---
*NOTICE TO RECEIVING DEMOCRAT AGENCY This information is strictly Confidential and protected under [place] law. [place] law prohibits you from making any further disclosure of this information unless further disclosure is expressly permitted by the written consent of the person to whom it pertains or is authorized by law. A general authorization for the release of medical or other information is not sufficient for this purpose. Hospital accepts no responsibility if the information is made available to any other person, INCLUDING THE PATIENT. Interpretation Summary * Name: ZANDRA DIAZ Study Date: 01/15/2017 02:11 PM BP: 189/95 mmHg * Patient Location: [facility]\S\N282\S\2 HR: 92 * : 1940 (M/d/yyyy) Gender: Female Height: 64 in * Age: 76 yrs Ethnicity: [place] Weight: 128 lb * Ordering Physician: Latoya Austin * Referring Physician: Self, Referred * Performed By: Cary Dobbins RDCS * * Reason For Study: CHEST PAIN * BSA: 1.6 m2 * History: CHEST PAIN * -- Conclusions -- * The left ventricular cavity is small. * The left ventricular wall motion is normal. * Left ventricular systolic function is normal. * Ejection Fraction = 60-65%. * Grade I diastolic dysfunction, (abnormal relaxation pattern). * Aortic valve sclerosis mild, without significant aortic valvular stenosis. * Trace aortic regurgitation. * There is no pericardial effusion. Procedure Details * A complete two-dimensional transthoracic echocardiogram was performed (2D, M-mode, Doppler and color flow Doppler). Left Ventricle * The left ventricular cavity is small. * There is mild concentric left ventricular hypertrophy. * Ejection Fraction = 60-65%. * Left ventricular systolic function is normal. * The left ventricular wall motion is normal. Right Ventricle * The right ventricle is normal in size and function. Atria * The left atrial size is normal. * Right atrial size is normal. * No ASD detected; PFO is not assessed. Mitral Valve * The mitral valve anatomy is normal. * There is no mitral valve stenosis. * There is trace mitral regurgitation. Tricuspid Valve * The tricuspid valve anatomy is normal. * There is no tricuspid stenosis. * There is trace tricuspid regurgitation. * Doppler findings do not suggest pulmonary hypertension. Aortic Valve * The aortic valve is trileaflet. * Aortic valve sclerosis mild, without significant aortic valvular stenosis. * Trace aortic regurgitation. Pulmonic Valve * The pulmonic valve is not well visualized. Great Vessels * The aortic root is normal size. Pericardium/Pleural * There is no pericardial effusion. Great Vessels * Normal inferior vena cava diameter and respiratory variation suggests normal central venous pressure. Left Ventricular Diastolic Function * Grade I diastolic dysfunction, (abnormal relaxation pattern). MMode 2D Measurements and Calculations IVSd 1.1 cm IVSs 1.3 cm LVIDd 3.9 cm LVIDs 2.6 cm LVPWd 1.0 cm LVPWs 1.5 cm IVS/LVPW 1.0 FS 32.9 % EDV(Teich) 67.1 ml ESV(Teich) 25.5 ml EF(Teich) 62.0 % EDV(cubed) 60.7 ml ESV(cubed) 18.4 ml EF(cubed) 69.7 % % IVS thick 26.9 % % LVPW thick 50.7 % LV mass(C)d 130.1 grams LV mass(C)dI 80.4 grams/m\S\2 LV mass(C)s 124.7 grams LV mass(C)sI 77.0 grams/m\S\2 SV(Teich) 41.6 ml SI(Teich) 25.7 ml/m\S\2 SV(cubed) 42.3 ml SI(cubed) 26.1 ml/m\S\2 Ao root diam 3.3 cm Ao root area 8.5 cm\S\2 LVAd ap4 24.9 cm\S\2 LVLd ap4 8.7 cm EDV(MOD-sp4) 59.0 ml EDV(sp4-el) 60.3 ml LVAs ap4 13.6 cm\S\2 LVLs ap4 7.3 cm ESV(MOD-sp4) 24.2 ml ESV(sp4-el) 21.5 ml EF(MOD-sp4) 59.0 % EF(sp4-el) 64.3 % LVAd ap2 19.1 cm\S\2 LVLd ap2 7.7 cm EDV(MOD-sp2) 39.7 ml EDV(sp2-el) 40.3 ml LVAs ap2 10.5 cm\S\2 LVLs ap2 6.6 cm ESV(MOD-sp2) 15.1 ml ESV(sp2-el) 14.2 ml EF(MOD-sp2) 62.1 % EF(sp2-el) 64.8 % LVLd %diff -13.18 % EDV(MOD-bp) 49.1 ml LVLs %diff -9.93 % ESV(MOD-bp) 18.9 ml EF(MOD-bp) 61.5 % SV(MOD-sp4) 34.8 ml SI(MOD-sp4) 21.5 ml/m\S\2 SV(MOD-sp2) 24.6 ml SI(MOD-sp2) 15.2 ml/m\S\2 SV(MOD-bp) 30.2 ml SI(MOD-bp) 18.7 ml/m\S\2 SV(sp4-el) 38.7 ml SI(sp4-el) 23.9 ml/m\S\2 SV(sp2-el) 26.1 ml SI(sp2-el) 16.2 ml/m\S\2 Doppler Measurements and Calculations MV E max feliz 77.1 cm/sec MV A max feliz 136.2 cm/sec MV E/A 0.57 MV dec time 0.13 sec Ao V2 max 143.3 cm/sec Ao max PG 8.2 mmHg Ao max PG (full) 2.2 mmHg AI max feliz 438.2 cm/sec AI max PG 76.8 mmHg AI dec slope 258.5 cm/sec\S\2 AI P1/2t 496.5 msec LV V1 max PG 6.0 mmHg LV V1 max 122.5 cm/sec
--- NOTE | 2017-01-16 10:17 | Nephrology Progress Note ---
Nephrology Progress Note Date of Service: Jan 16, 2017. Subjective no c/o musculoskeletal abd pain or dyspnea; still w/ poor po intake. Objective Date Time Temp Pulse Resp B/P Pulse Ox O2 Delivery O2 Flow Rate FiO2 01/16/17 07:31 36.4 84 20 176/94 100 Room Air 01/16/17 04:05 Room Air 01/16/17 04:03 88 18 154/82 98 Room Air 01/16/17 03:59 36.5 92 18 173/84 98 Room Air 01/16/17 00:16 Room Air 01/15/17 23:21 36.6 101 20 166/92 100 Room Air 01/15/17 20:06 Room Air 01/15/17 19:53 36.7 93 18 169/97 97 Room Air 01/15/17 16:15 100 Room Air 01/15/17 16:14 36.6 95 18 184/92 100 Room Air 01/15/17 12:08 99 Room Air 01/15/17 12:05 36.5 92 18 189/95 99 Room Air Physical Exam: General Appearance: WD/WN, nad, + pertinent finding (sitting up watching [employer] service on TV on ra) Eyes: EOMI ENT: hearing grossly normal Neck: supple Respiratory/Chest: lungs clear, no respiratory distress, + decreased breath sounds Cardiovascular: regular rate, rhythm, no edema Abdomen: normal bowel sounds, soft, some tenderness to moderate palpation and even guarding w/o rebound Extremities: normal inspection, no pedal edema Neurologic/Psych: alert, + motor weakness, fluent/appropriate speech Skin: no jaundice, warm/dry, no rash Current Inpatient Medications Medications (Trade) Dose Ordered Sig/Donald Route Start Time Stop Time Status Last Admin Dose Admin Heparin Sodium (Porcine) (Heparin Sq 5000 Unit/0.5ml) 5,000 unit Q8 SQ 01/15/17 06:00 02/14/17 05:59 01/15/17 14:33 5,000 UNIT Acetaminophen (Tylenol Tab) 650 mg Q4H PRN PO 01/15/17 03:15 02/14/17 03:14 Al Hydrox/Mg Hydrox/Simethicone (Maalox Max Susp) 15 ml Q4H PRN PO 01/15/17 03:15 02/14/17 03:14 Magnesium Hydroxide (Milk Of Magnesia Susp) 30 ml Q12H PRN PO 01/15/17 03:15 02/14/17 03:14 Ondansetron HCl (Zofran Inj) 4 mg Q6H PRN IV 01/15/17 03:15 02/14/17 03:14 Nitroglycerin (Nitrostat Tab) 0.4 mg UD PRN SL 01/15/17 03:15 02/14/17 03:14 Polyethylene 17 gm 17 gm DAILY PRN PO 01/15/17 03:15 02/14/17 03:14 Ceftriaxone Sodium/Dextrose (Rocephin Inj/ Dextrose Add-[place] 50ML) 50 ml @ 100 mls/hr Q24H IV 01/16/17 01:00 01/19/17 01:29 01/16/17 01:00 100 MLS/HR Carvedilol (Coreg Tab) 3.125 mg BID PO 01/15/17 09:00 02/14/17 08:59 01/16/17 08:38 3.125 MG Ferrous Sulfate (Feosol Tab) 325 mg DAILY PO 01/15/17 09:00 02/14/17 08:59 01/16/17 08:39 325 MG Ondansetron HCl (Zofran Tab) 4 mg Q6H PRN PO 01/15/17 03:15 02/14/17 03:14 Pantoprazole Sodium (Protonix Tab) 40 mg DAILY PO 01/15/17 09:00 02/14/17 08:59 01/16/17 08:38 40 MG Potassium Chloride (Klor-Con Tab) 20 meq DAILY PO 01/15/17 09:00 02/14/17 08:59 01/16/17 08:38 20 MEQ Senna (Senokot Tab) 17.2 mg DAILY PO 01/15/17 09:00 02/14/17 08:59 01/16/17 08:38 17.2 MG Tramadol HCl (Ultram Tab) 50 mg Q8H PRN PO 01/15/17 03:15 02/14/17 03:14 Miscellaneous Information (Order Awaiting Action) 1 ea QS N/A 01/15/17 08:00 02/14/17 07:59 Oxycodone HCl 10 mg 10 mg Q8 PRN PO 01/15/17 03:15 02/14/17 03:14 Potassium Chloride 20 meq/ Dextrose 1,010 ml @ 100 mls/hr Q10H6M IV 01/15/17 18:00 02/14/17 17:59 01/16/17 03:12 100 MLS/HR Potassium Chloride/Prmx (Kcl 10 Meq / Wtr/Premixed Water) 100 ml @ 100 mls/hr Q1H IV 01/16/17 09:00 01/16/17 10:59 Last 24 Hours Test 01/15/17 12:19 01/15/17 12:55 01/15/17 16:05 01/15/17 17:54 Sodium Level 153 mmol/L 154 mmol/L Potassium Level 3.3 mmol/L 3.3 mmol/L Chloride Level 116 mmol/L 117 mmol/L Carbon Dioxide Level 28 mmol/L 25 mmol/L Anion Gap 9.0 mmol/L 12.0 mmol/L Blood Urea Nitrogen 37 mg/dl 37 mg/dl Creatinine 1.30 mg/dl 1.40 mg/dl Est Creatinine Clear Calc Drug Dose 31.9 ml/min 29.6 ml/min Estimated GFR () 46.8 42.8 Estimated GFR (Non- 40.4 36.9 BUN/Creatinine Ratio 28.6 26.3 Random Glucose 104 mg/dl 97 mg/dl Calcium Level 8.3 mg/dl 8.3 mg/dl Total Creatine Kinase 74 U/L Creatine Kinase MB 1.8 ng/ml Creatine Kinase MB Ratio 2.4 Troponin I 0.042 ng/ml Erythrocyte Sedimentation Rate 54 mm/hr Test 01/16/17 07:11 White Blood Count 6.43 K/uL Red Blood Count 2.57 M/uL Hemoglobin 7.7 g/dL Hematocrit 22.1 % Mean Corpuscular Volume 86.0 fL Mean Corpuscular Hemoglobin 30.0 pg Mean Corpuscular Hemoglobin Concent 34.8 g/dl RDW Standard Deviation 40.7 fL RDW Coefficient of Variation 13.1 % Platelet Count 219 K/uL Mean Platelet Volume 9.3 fL Sodium Level 149 mmol/L Potassium Level 2.9 mmol/L Chloride Level 113 mmol/L Carbon Dioxide Level 24 mmol/L Anion Gap 12.0 mmol/L Blood Urea Nitrogen 29 mg/dl Creatinine 1.20 mg/dl Est Creatinine Clear Calc Drug Dose 34.5 ml/min Estimated GFR () 51.6 Estimated GFR (Non- 44.5 BUN/Creatinine Ratio 24.4 Random Glucose 141 mg/dl Calcium Level 7.8 mg/dl Magnesium Level 1.7 mg/dl Triglycerides Level 213 mg/dl Cholesterol Level 182 mg/dl HDL Cholesterol 42 mg/dl LDL Cholesterol, Calculated 97 mg/dl VLDL Cholesterol, Calculated 43 mg/dl Cholesterol/HDL Ratio 4.3 Date/Time Source Procedure Growth Status 01/15/17 18:05 Blood Blood Culture Pending Received 01/15/17 17:54 Blood Blood Culture Pending Received Assessment & Plan 76 y/o F w/ HTN, recent R hip procedure several weeks ago, recent JAJA from which she is still recovering,, failure to thrive past 4-6 wks sent from rehab less than 36 hrs after d/c w/ hypernatremia, hypokalemia, ongoing renal failure (admitting creat 1.7), poor po/uop and altered mental status. She is hardly taking po. Baseline creatinine 0.8 earlier this year. d/c creat from [facility] on 01/13 1.4 w/ Na 148. Chronic hypernatremia, improving -cont D5W give hyperchloremia, HTN, hypokalemia to D5W same rate but increase to 40 mEq K/L; also getting some K riders -BMP daily -encourage po intake as below Decreased po intake/malnutrition/failure to thrive -ongoing issue for this pt including at last hospital stay -had been advised at recent hospital d/c to eat frequent small meals and mechanical soft diet -consider calorie count/swallow eval Altered mental status > metabolic encephalopathy -given recent ortho procedure > ESR and blood cultures -baseline mental status not known > no mention of or meds for dementia Acute renal failure> had ATN last hospital stay; at least partly prerenal component here as she is improving w/ fluids Baseline creatinine 0.8; may not reach this again -bmp as above -f/u pending urine cx -albicans not likely clinically significant Appreciate consult; will follow with you. Care coordinated w/ Dr Gamez
--- NOTE | 2017-01-16 12:01 | Progress Note ---
Internal Med Progress Note Date of Service: Jan 16, 2017. Provider Documentation: SUBJECTIVE: The patient was seen and examined Pleasantly confused,Pulled out IVF 01/15/17 Denies any complaints today Not been eating and or drinking enough OBJECTIVE: Vital Signs-as noted below Exam: General-no distress at rest Eyes-normal ENT-normal Neck-supple Lungs-Clear to auscultate bilaterally Heart-Regular,no murmur appreciated Abdomen-Benign,no masses,bowel sound present Extremities-No edema Neuro-AA Pleasantly confused Generally weak and Lethargic No focal neuro deficit Lab data as noted below. ASSESSMENT & PLAN: ACUTE KIDNEY INJURY Secondary to DEHYDRATION due to poor oral intake Has been on IVF Advised more fluid orally Creatinine is improved to 1.50 from 1.70 Avoid nephrotoxins Nephrology evprice requested -appreciate input Clinically much better today HYPERNATREMIA: Due to not been eating and or drinking IV F with NSS Remains high at 152 Continue IFV and increase oral intake Sodium is 149 today CONFUSION /LETHARGY: Likely due to metabolic encephalopathy due to above Cont to correct for dehydration No H/O Dementia Normal functioning ~ 4weeks ago Dysphagia with Vomiting Difficulty in swallowing for a while Has vomiting associated with it Barium swallow in [facility]-unremarkable Will ask GI for probable EGD MILD ELEVATION OF TROPONIN : possible due to JAJA pt unable to verbalize chest discomfort EKG wave inversion in lat leads Doubt any ACS POSSIBLE UTI : UA grossly positive possible causing poor PO intake /dehydration IV Rocephin empirically follow urine culture -pending CODE STATUS : full code DVT PROPHYLAXIS : sub q heparin DISPOSITION : recently discharged to rehab PT/OT jameson requested return to [facility] for continued rehab once medically stable social service consulted for discharge planning Discussed with the Daughters Vital Signs: Date Time Temp Pulse Resp B/P Pulse Ox O2 Delivery O2 Flow Rate FiO2 01/16/17 11:50 36.6 70 18 151/87 94 Room Air 01/16/17 08:00 100 Room Air 01/16/17 07:31 36.4 84 20 176/94 100 Room Air 01/16/17 04:05 Room Air 01/16/17 04:03 88 18 154/82 98 Room Air 01/16/17 03:59 36.5 92 18 173/84 98 Room Air 01/16/17 00:16 Room Air 01/15/17 23:21 36.6 101 20 166/92 100 Room Air 01/15/17 20:06 Room Air 01/15/17 19:53 36.7 93 18 169/97 97 Room Air 01/15/17 16:15 100 Room Air 01/15/17 16:14 36.6 95 18 184/92 100 Room Air 01/15/17 12:08 99 Room Air 01/15/17 12:05 36.5 92 18 189/95 99 Room Air Lab Results: Results Past 24 Hours Test 01/15/17 12:19 01/15/17 12:55 01/15/17 16:05 01/15/17 17:54 Range/Units Sodium Level 153 154 136-145 mmol/L Potassium Level 3.3 3.3 3.5-5.1 mmol/L Chloride Level 116 117 98-107 mmol/L Carbon Dioxide Level 28 25 21-32 mmol/L Anion Gap 9.0 12.0 3-11 mmol/L Blood Urea Nitrogen 37 37 7-18 mg/dl Creatinine 1.30 1.40 0.60-1.20 mg/dl Est Creatinine Clear Calc Drug Dose 31.9 29.6 ml/min Estimated GFR () 46.8 42.8 Estimated GFR (Non- 40.4 36.9 BUN/Creatinine Ratio 28.6 26.3 10-20 Random Glucose 104 97 70-99 mg/dl Calcium Level 8.3 8.3 8.5-10.1 mg/dl Total Creatine Kinase 74 26-192 U/L Creatine Kinase MB 1.8 0.5-3.6 ng/ml Creatine Kinase MB Ratio 2.4 0-3.0 Troponin I 0.042 0-0.045 ng/ml Erythrocyte Sedimentation Rate 54 0-21 mm/hr Test 01/16/17 07:11 Range/Units White Blood Count 6.43 4.8-10.8 K/uL Red Blood Count 2.57 4.2-5.4 M/uL Hemoglobin 7.7 12.0-16.0 g/dL Hematocrit 22.1 37-47 % Mean Corpuscular Volume 86.0 80-100 fL Mean Corpuscular Hemoglobin 30.0 25-34 pg Mean Corpuscular Hemoglobin Concent 34.8 32-36 g/dl RDW Standard Deviation 40.7 36.4-46.3 fL RDW Coefficient of Variation 13.1 11.5-14.5 % Platelet Count 219 130-400 K/uL Mean Platelet Volume 9.3 7.4-10.4 fL Sodium Level 149 136-145 mmol/L Potassium Level 2.9 3.5-5.1 mmol/L Chloride Level 113 98-107 mmol/L Carbon Dioxide Level 24 21-32 mmol/L Anion Gap 12.0 3-11 mmol/L Blood Urea Nitrogen 29 7-18 mg/dl Creatinine 1.20 0.60-1.20 mg/dl Est Creatinine Clear Calc Drug Dose 34.5 ml/min Estimated GFR () 51.6 Estimated GFR (Non- 44.5 BUN/Creatinine Ratio 24.4 10-20 Random Glucose 141 70-99 mg/dl Calcium Level 7.8 8.5-10.1 mg/dl Magnesium Level 1.7 1.8-2.4 mg/dl Triglycerides Level 213 0-150 mg/dl Cholesterol Level 182 0-200 mg/dl HDL Cholesterol 42 mg/dl LDL Cholesterol, Calculated 97 mg/dl VLDL Cholesterol, Calculated 43 mg/dl Cholesterol/HDL Ratio 4.3 Microbiology Results 01/15/17 Blood Culture, Received Pending 01/15/17 Blood Culture, Received Pending
[2017-01-16] MEDS: POTASSIUM CHLORIDE INJ 40 MEQ in DEXTROSE 5% 1000ML 1,000 ML IV SCH ×2 (13:19→20:38)
[2017-01-17] VITALS (8 sets, daily range): BP systolic 119–171; BP diastolic 67–90; PULSE 78–88; TEMP 36.2–36.5; O2SAT 97–100
[2017-01-17] MEDS: CEFTRIAXONE SOD INJ 1 GM in DEXTROSE 5% ADD-VANTAGE 50ML 50 ML IV SCH (01:09)
[2017-01-17] MEDS: HEPARIN SOD 5000 UNIT/0.5 ML CARP SQ SCH ×3 (05:27→21:27)
[2017-01-17 07:23] LABS: HEMATOCRIT 22.4 % (37-47); MEAN CELL VOLUME 86.2 fL (80-100); MEAN CORPUSCULAR HGB CONC 34.8 g/dl (32-36); PLATELET COUNT 208 K/uL (130-400); WHITE BLOOD COUNT 5.14 K/uL (4.8-10.8)
[2017-01-17 07:57] LABS: BUN/CREATININE RATIO 17.6 (10-20); CALCIUM 7.9 mg/dl (8.5-10.1); CREATININE 1.2 mg/dl (0.60-1.20); MAGNESIUM 1.5 mg/dl (1.8-2.4); POTASSIUM 3.8 mmol/L (3.5-5.1)
[2017-01-17] MEDS: POTASSIUM CHLORIDE INJ 40 MEQ in DEXTROSE 5% 1000ML 1,000 ML IV SCH ×2 (08:13→17:45)
[2017-01-17] MEDS: CARVEDILOL 3.125 MG TAB PO SCH ×2 (08:17→21:00)
[2017-01-17] MEDS: FERROUS SULFATE 325 MG TAB PO SCH (08:18)
[2017-01-17] MEDS: POTASSIUM CHLORIDE 20 MEQ TABCR PO SCH (08:18)
[2017-01-17] MEDS: PANTOprazole SOD 40 MG TAB PO SCH (08:18)
[2017-01-17] MEDS: SENNA 8.6 MG TAB PO SCH (08:18)
--- NOTE | 2017-01-17 08:38 | Nephrology Progress Note ---
Nephrology Progress Note Date of Service: Jan 17, 2017. Subjective no c/o musculoskeletal abd pain or dyspnea; still w/ poor po intake. resting comfortably Objective Date Time Temp Pulse Resp B/P Pulse Ox O2 Delivery O2 Flow Rate FiO2 01/17/17 07:42 36.4 79 16 164/90 100 Room Air 01/17/17 04:00 Room Air 01/17/17 03:36 36.3 84 18 162/83 97 Room Air 01/17/17 00:00 Room Air 01/16/17 23:24 36.3 72 18 165/84 100 Room Air 01/16/17 20:00 Room Air 01/16/17 19:25 36.3 76 18 168/90 99 Room Air 01/16/17 16:00 Room Air 01/16/17 15:30 36.6 83 18 171/85 100 Room Air 01/16/17 12:00 94 Room Air 01/16/17 11:50 36.6 70 18 151/87 94 Room Air Physical Exam: General Appearance: WD/WN, nad, lying flat on RA withdrawn affect Eyes: EOMI ENT: hearing grossly normal Neck: supple Respiratory/Chest: lungs clear, no respiratory distress, + decreased breath sounds Cardiovascular: regular rate, rhythm, no edema Abdomen: normal bowel sounds, soft, today no TTP Extremities: normal inspection, no pedal edema Neurologic/Psych: talamantes Skin: no jaundice, warm/dry, no rash Current Inpatient Medications Medications (Trade) Dose Ordered Sig/Donald Route Start Time Stop Time Status Last Admin Dose Admin Heparin Sodium (Porcine) (Heparin Sq 5000 Unit/0.5ml) 5,000 unit Q8 SQ 01/15/17 06:00 02/14/17 05:59 01/17/17 05:27 5,000 UNIT Acetaminophen (Tylenol Tab) 650 mg Q4H PRN PO 01/15/17 03:15 02/14/17 03:14 Al Hydrox/Mg Hydrox/Simethicone (Maalox Max Susp) 15 ml Q4H PRN PO 01/15/17 03:15 02/14/17 03:14 Magnesium Hydroxide (Milk Of Magnesia Susp) 30 ml Q12H PRN PO 01/15/17 03:15 02/14/17 03:14 Ondansetron HCl (Zofran Inj) 4 mg Q6H PRN IV 01/15/17 03:15 02/14/17 03:14 Nitroglycerin (Nitrostat Tab) 0.4 mg UD PRN SL 01/15/17 03:15 02/14/17 03:14 Polyethylene 17 gm 17 gm DAILY PRN PO 01/15/17 03:15 02/14/17 03:14 Ceftriaxone Sodium/Dextrose (Rocephin Inj/ Dextrose Add-[place] 50ML) 50 ml @ 100 mls/hr Q24H IV 01/16/17 01:00 01/19/17 01:29 01/17/17 01:09 100 MLS/HR Carvedilol (Coreg Tab) 3.125 mg BID PO 01/15/17 09:00 02/14/17 08:59 01/16/17 08:38 3.125 MG Ferrous Sulfate (Feosol Tab) 325 mg DAILY PO 01/15/17 09:00 02/14/17 08:59 01/15/17 07:37 325 MG Ondansetron HCl (Zofran Tab) 4 mg Q6H PRN PO 01/15/17 03:15 02/14/17 03:14 Pantoprazole Sodium (Protonix Tab) 40 mg DAILY PO 01/15/17 09:00 02/14/17 08:59 01/15/17 07:37 40 MG Potassium Chloride (Klor-Con Tab) 20 meq DAILY PO 01/15/17 09:00 02/14/17 08:59 01/15/17 07:36 20 MEQ Senna (Senokot Tab) 17.2 mg DAILY PO 01/15/17 09:00 02/14/17 08:59 01/15/17 07:37 17.2 MG Tramadol HCl (Ultram Tab) 50 mg Q8H PRN PO 01/15/17 03:15 02/14/17 03:14 Miscellaneous Information (Order Awaiting Action) 1 ea QS N/A 01/15/17 08:00 02/14/17 07:59 Oxycodone HCl 10 mg 10 mg Q8 PRN PO 01/15/17 03:15 02/14/17 03:14 Potassium Chloride/Dextrose (KCl Inj/D5W 1000ml) 1,020 ml @ 100 mls/hr [id number] IV 01/16/17 11:00 02/15/17 10:14 01/17/17 08:13 100 MLS/HR Last 24 Hours Test 01/17/17 06:40 White Blood Count 5.14 K/uL Red Blood Count 2.60 M/uL Hemoglobin 7.8 g/dL Hematocrit 22.4 % Mean Corpuscular Volume 86.2 fL Mean Corpuscular Hemoglobin 30.0 pg Mean Corpuscular Hemoglobin Concent 34.8 g/dl RDW Standard Deviation 40.1 fL RDW Coefficient of Variation 12.7 % Platelet Count 208 K/uL Mean Platelet Volume 10.0 fL Nucleated RBC Absolute Count (auto) 0.02 K/uL Nucleated Red Blood Cells % 0.5 % Sodium Level 141 mmol/L Potassium Level 3.8 mmol/L Chloride Level 108 mmol/L Carbon Dioxide Level 25 mmol/L Anion Gap 8.0 mmol/L Blood Urea Nitrogen 21 mg/dl Creatinine 1.20 mg/dl Est Creatinine Clear Calc Drug Dose 34.5 ml/min Estimated GFR () 51.6 Estimated GFR (Non- 44.5 BUN/Creatinine Ratio 17.6 Random Glucose 106 mg/dl Calcium Level 7.9 mg/dl Magnesium Level 1.5 mg/dl Assessment & Plan 76 y/o F w/ HTN, recent R hip procedure several weeks ago, recent JAJA from which she is still recovering,, failure to thrive past 4-6 wks sent from rehab less than 36 hrs after d/c w/ hypernatremia, hypokalemia, ongoing renal failure (admitting creat 1.7), poor po/uop and altered mental status. She is hardly taking po. Baseline creatinine 0.8 earlier this year. d/c creat from [facility] on 01/13 1.4 w/ Na 148. Chronic hypernatremia, corrected -cont current fluids D5W w/ K 40 mEq/L give hyperchloremia, HTN, recent hypokalemia -encourage po intake as below Decreased po intake/malnutrition/failure to thrive w/ electrolyte disorders -will give mag IV today adn recheck in am -ongoing issue for this pt including at last hospital stay -had been advised at recent hospital d/c to eat frequent small meals and mechanical soft diet -consider calorie count/swallow eval Altered mental status > metabolic encephalopathy -given recent ortho procedure > ESR and blood cultures>cxs ngtd -baseline mental status not known > no mention of or meds for dementia Acute renal failure> had ATN last hospital stay; at least partly prerenal component here as she is improving w/ fluids Baseline creatinine 0.8; may not reach this again. creatinine stable at 1.2 from yesterday, improving from admission -bmp as above -f/u pending urine cx -albicans not likely clinically significant Appreciate consult; will follow with you.
[2017-01-17] MEDS ORDERED: MAGNESIUM SULFATE 1GM / D5W 2 GM in PREMIXED IN D5W 100 ML IV SCH (08:45)
[2017-01-17] MEDS: MAGNESIUM SULFATE 1GM / D5W 1 GM in PREMIXED IN D5W 100 ML IV SCH ×2 (08:53→10:05)
--- NOTE | 2017-01-17 10:49 | Gastrointestinal Consultation ---
Gastrointestinal Consultation Date of Consultation: Jan 17, 2017 Consulting Physician: Nae Reason for Consultation: post prandial n/v History of Present Illness Patient is a 76 year old female w/ PMH significant for recent JAJA, sepsis, malnutrition and HTN who presents to the ED from [facility] for evaluation of confusion, lethargy and decrease urine output. She was recently admitted in [facility] and treated for JAJA w/ sepsis. GI is consulted today for evaluation of persistent post prandial n/v and dysphagia. Pt was seen and examined this morning. Prior to examination she was sleeping. She was lethargic during exam and in&out of sleep. She was not interactive during ROS or exam. There is no family or friends at bedside. Per nursing staff she consents to her own medical procedure. ROS was not obtained as patient was unable to provide any answer. Per previous GI consultation on 01/04/17 by Suzy Bowers PA-C and Dr. Kayode Hameed. Pt was reporting decreases appetite with nausea and intermittent bouts of emesis with weight loss. There was no report of abdominal pain or heartburn. Bowels moving every other day without any evidence of GI bleeding. No previous colonoscopy or EGD. This was managed conservatively and she was started on IV PPI BID and she was feeling better. Barium Swallow 01/11/17: Modified esophagram. No esophageal strictures or masses. No witnessed aspiration. Moderate stasis of contrast within the mid thoracic esophagus. Small hiatal hernia. Past Medical/Surgical History Medical Problems: (1) Dehydration Status: Acute (2) Hypernatremia Status: Acute (3) Lethargic Status: Acute (4) Renal insufficiency Status: Acute (5) UTI (urinary tract infection) Status: Acute Past Medical History: closed fracture to right hip, HTN, gait instability, malnutrition Past Surgical History: trochanteric fracture repair w/ implant Family History Patient reports no known family medical history. Social History Smoking Status: Unknown if Ever Smoked Alcohol Use: none Drug Use: none Housing Status: fdc Occupation Status: retired Allergies Coded Allergies: No Known Allergies (Unverified , 01/14/17) Current Medications Home Meds and Scripts Medications Dose Route/Sig Max Daily Dose Days Date Category Dose Instructions Protonix (Pantoprazole Sodium) 40 Mg Tab 40 Mg PO DAILY 01/14/17 Reported Senokot (Senna) 8.6 Mg Tab 17.2 Mg PO DAILY 01/14/17 Reported HOLD FOR LOOSE STOOLS Potassium Chloride Er (Potassium Chloride Microencaps) 20 Meq Tab 20 Meq PO DAILY 01/14/17 Reported Melatonin 3 Mg Tab 3 Mg PO HS 01/14/17 Reported Ferrous Sulfate 325 Mg Tab 325 Mg PO DAILY 01/14/17 Reported Coreg (Carvedilol) 3.125 Mg Tab 3.125 Mg PO BID 01/14/17 Reported Zofran (Ondansetron HCl) 4 Mg Tab 4 Mg PO Q6H PRN 01/14/17 Reported Vijaya Pm (Diphenhydramine Citrate-Aspiri) 1 Tab Tab 1 Tab PO Q6H PRN 01/14/17 Reported Tylenol (Acetaminophen) 325 Mg Tab 650 Mg PO Q4H PRN 01/14/17 Reported NEEDED FOR PAIN RATED 1-3 ON A SCALE OF "0-10". DO NOT EXCEED 3 GM APAP/DAY. Milk Of Magnesia (Magnesium Hydroxide) 30 Ml Susp 30 Ml PO UD PRN 01/14/17 Reported NEEDED EVERY DAY FOR NO BOWEL MOVEMENT FOR 7 SHIFTS Fleet Enema (Sodium Phosphate/Biphosphate) Estephania 1 Ea TX UD PRN 01/14/17 Reported NEEDED EVERY 3 DAYS IF DULCOLAX SUPPOSITORY WAS INEFFECTIVE Dulcolax (Bisacodyl) 10 Mg Sup 1 Supp TX UD PRN 01/14/17 Reported NEEDED EVERY 3 DAYS IF MOM INEFFECTIVE Ultram (Tramadol HCl) 50 Mg Tab 50 Mg PO Q8H PRN 01/14/17 Reported NEEDED FOR MODERATE PAIN RATED 4-6 ON A SCALE OF "0- 10" Oxycodone Hcl 10 Mg Tab 10 Mg PO Q8 PRN 01/14/17 Reported NEEDED FOR SEVERE PAIN RATED 7-10 ON A SCALE OF "0-10 ". Review of Systems Unable to obtain ROS. Physical Exam Date Time Temp Pulse Resp B/P Pulse Ox O2 Delivery O2 Flow Rate FiO2 01/17/17 08:45 Room Air 01/17/17 07:42 36.4 79 16 164/90 100 Room Air 01/17/17 04:00 Room Air 01/17/17 03:36 36.3 84 18 162/83 97 Room Air 01/17/17 00:00 Room Air 01/16/17 23:24 36.3 72 18 165/84 100 Room Air 01/16/17 20:00 Room Air 01/16/17 19:25 36.3 76 18 168/90 99 Room Air 01/16/17 16:00 Room Air 01/16/17 15:30 36.6 83 18 171/85 100 Room Air 01/16/17 12:00 94 Room Air 01/16/17 11:50 36.6 70 18 151/87 94 Room Air General Appearance: no apparent distress (patient is sleeping, not easily awakened, in & out of sleep) Eyes: PERRL ENT: hearing grossly normal Neck: supple, trachea midline Respiratory/Chest: normal breath sounds, no respiratory distress, no accessory muscle use, + decreased breath sounds (diminshed at bases) Cardiovascular: regular rate, rhythm, no edema, no gallop, no JVD Abdomen: normal bowel sounds, non tender (no facial grimace or guarding with palpation), soft, no organomegaly, no pulsatile mass Neurologic/Psych: + pertinent finding (unable to assess orientation) Skin: normal color, no jaundice Laboratory Results Last 24 Hours Test 01/17/17 06:40 White Blood Count 5.14 K/uL Red Blood Count 2.60 M/uL Hemoglobin 7.8 g/dL Hematocrit 22.4 % Mean Corpuscular Volume 86.2 fL Mean Corpuscular Hemoglobin 30.0 pg Mean Corpuscular Hemoglobin Concent 34.8 g/dl RDW Standard Deviation 40.1 fL RDW Coefficient of Variation 12.7 % Platelet Count 208 K/uL Mean Platelet Volume 10.0 fL Nucleated RBC Absolute Count (auto) 0.02 K/uL Nucleated Red Blood Cells % 0.5 % Sodium Level 141 mmol/L Potassium Level 3.8 mmol/L Chloride Level 108 mmol/L Carbon Dioxide Level 25 mmol/L Anion Gap 8.0 mmol/L Blood Urea Nitrogen 21 mg/dl Creatinine 1.20 mg/dl Est Creatinine Clear Calc Drug Dose 34.5 ml/min Estimated GFR () 51.6 Estimated GFR (Non- 44.5 BUN/Creatinine Ratio 17.6 Random Glucose 106 mg/dl Calcium Level 7.9 mg/dl Magnesium Level 1.5 mg/dl Impression Patient is a 76 year old female w/ recent hospitalization for JAJA and sepsis who was discharged to a fdc w/ decreased PO intake, hypernatremia, hypokalemia, AMS and failure to thrive. Patient was not interactive during exam , per nursing staff there is no PO intake. Recent barium swallow at [place] unremarkable. Plan PPI BID Continue ongoing correction of underlying electrolyte imbalances Diet as tolerated Re-evaluate during rounds to see if patient is more interactive/would like to proceed with EGD We can tentatively schedule to make Ms. Bateman NPO after midnight with an EGD 08/26 if patient is agreeable. I have seen, examined and agree with the plan as outlined by DINESH Garcia as above. -exam reveals soft abd -Patient with mental status that is declined and only arousable to stimuli -Downgoing babinsky -Rec -mental status work up for depressed mentation, including metabolic, infectious etiologies -Will eval for swallowing issues when able to provide history
--- NOTE | 2017-01-17 12:52 | Clinical Documentation Query ---
CLINICAL DOCUMENTATION QUERY Please give to Dr Malone 76 year old female who presents to the Emergency Room with complaints of constant lethargy. Patient has a WOCN consult where a unstageable sacral pressure ulcer was found. Query #1/2 In your clinical opinion is this patient being managed for: ( ) Pressure ulcer of sacral region, unstageable POA. ( ) Pressure ulcer of sacral region, unstageable occuring during this hospital stay. ( ) Other explanation of clinical findings (Please Explain) ( ) Unable to determine (Please Define) ( ) Need to Discuss ( ) Not Agree The medical record reflects the following clinical findings, treatment, and risk factors. Clinical Indicators: As above Treatment: WOCN consult Risk Factors: Age, malnutrition, deconditioning Query #2/2 In your clinical opinion is this patient being managed for: ( ) Severe malnutrition evidenced by +muscle weakness, dysphagia, pressure ulcer, and BMI of 20.1 ( ) Other explanation of clinical findings (Please Explain) ( ) Unable to determine (Please Define) ( ) Need to Discuss ( ) Not Agree The medical record reflects the following clinical findings, treatment, and risk factors. Clinical Indicators: +weakness, +dehydration, JAJA, BMI 20.1, 53.2 kg's, pressure ulcer to sacrum. Per nephrology "failure to thrive and malnutrition." Treatment: GI consult Risk Factors: Age, recent sepsis, Please clarify and document your clinical opinion in the progress notes and discharge summary. Terms such as "probable", "suspected", "likely", "questionable", "possible", or "still to be ruled out" are acceptable. IF IN AGREEMENT, YOU MUST DOCUMENT ABOVE DIAGNOSTIC STATEMENT IN DAILY PROGRESS NOTES AND DISCHARGE SUMMARY. This document is not part of the patient's record. Malnutrition Characteristics (2 of 6) in Acute Illness/Injury CHARACTERISTICS MODERATE MALNUTRITION SEVERE MALNUTRITION ENERGY INTAKE <75% of estimated energyrequirement for >7 days <50% of estimated energyrequirement for >5 days WEIGHT LOSS 1-2%/1 week 5%/1 month 7.5%/3 months >1-2%/1 week >5%/1 month >7.5%/3 months BODY FAT*loss of SQ fat from the orbits,triceps, or fat overlying the ribs MILD MODERATE MUSCLE MASS*muscle wasting at the temples,clavicles, shoulders, interosseousspaces,scapula, thigh, calf MILD MODERATE FLUID ACCUMULATION*localized or generalized edemaof the extremities, vulva, scrotumweight loss may be masked byedema MILD MODERATE-SEVERE PUBLICATIONS DISTRIBUTION CLERK STRENGTH N/A measurably decreased perthe device's standards Malnutrition Characteristics (2 of 6) in Chronic Illness CHARACTERISTICS MODERATE MALNUTRITION SEVERE MALNUTRITION ENERGY INTAKE <75% of estimated energyrequirement for >1 month <75% of estimated energyrequirement for >1 month WEIGHT LOSS 5%/1 month 7.5%/3 months 10%/6 months 20%/1 year > 5%/1 month >7.5%/3 months >10%/6 months >20%/1 year BODY FAT*loss of SQ fat from the orbits,triceps, or fat overlying the ribs MILD SEVERE MUSCLE MASS*muscle wasting at the temples,clavicles, shoulders, interosseousspaces,scapula, thigh, calf MILD SEVERE FLUID ACCUMULATION*localized or generalized edemaof the extremities, vulva, scrotumweight loss may be masked byedema MILD SEVERE PUBLICATIONS DISTRIBUTION CLERK STRENGTH N/A measurably decreased perthe device's standards Thank You, Wily Contreras, RN [phone]
[2017-01-17] MEDS ORDERED: POTASSIUM PHOS 3 MMOL/1 ML INFUSION IV STA (17:23)
--- NOTE | 2017-01-17 17:32 | Progress Note ---
Internal Med Progress Note Date of Service: Jan 17, 2017. Provider Documentation: SUBJECTIVE: The patient was seen and examined Pleasantly confused,Pulled out IVF 01/15/17 Denies any complaints today Not been eating and or drinking enough Remains stable but confused OBJECTIVE: Vital Signs-as noted below Exam: General-no distress at rest Eyes-normal ENT-normal Neck-supple Lungs-Clear to auscultate bilaterally Heart-Regular,no murmur appreciated Abdomen-Benign,no masses,bowel sound present Extremities-No edema Neuro-AA Pleasantly confused Generally weak and Lethargic No focal neuro deficit Lab data as noted below. ASSESSMENT & PLAN: Metabolic Encephalopathy No h/o Dementia.condition has been getting worse for the last few weeks as per the daughters Likely secondary to Infection-not identified yet,electrolytes imbalance, hypernatremia No acute delirium Improving gradually ACUTE KIDNEY INJURY Secondary to DEHYDRATION due to poor oral intake Has been on IVF Advised more fluid orally Creatinine is improved to 1.50 from 1.70 Avoid nephrotoxins Nephrology eval requested -appreciate input Clinically much better today HYPERNATREMIA: Due to not been eating and or drinking IV F with NSS Remains high at 152 Continue IFV and increase oral intake Sodium is normalized Electrolytes Imbalance Replace Potassium,Magnesium and Phosphorus Recheck CONFUSION /LETHARGY: Likely due to metabolic encephalopathy due to above Cont to correct for dehydration No H/O Dementia Normal functioning ~ 4weeks ago Dysphagia with Vomiting Difficulty in swallowing for a while Has vomiting associated with it Barium swallow in [facility]-unremarkable Will ask GI for probable EGD MILD ELEVATION OF TROPONIN : possible due to JAJA pt unable to verbalize chest discomfort EKG wave inversion in lat leads Doubt any ACS POSSIBLE UTI : UA grossly positive possible causing poor PO intake /dehydration IV Rocephin empirically follow urine culture -negative D/c antibiotic CODE STATUS : full code DVT PROPHYLAXIS : sub q heparin DISPOSITION : recently discharged to rehab PT/OT eval requested return to [facility] for continued rehab once medically stable social service consulted for discharge planning Discussed with the Daughters Vital Signs: Date Time Temp Pulse Resp B/P Pulse Ox O2 Delivery O2 Flow Rate FiO2 01/17/17 16:17 36.5 81 16 152/86 100 Room Air 01/17/17 12:45 Room Air 01/17/17 11:34 36.2 79 16 146/71 100 Room Air 01/17/17 08:45 Room Air 01/17/17 07:42 36.4 79 16 164/90 100 Room Air 01/17/17 04:00 Room Air 01/17/17 03:36 36.3 84 18 162/83 97 Room Air 01/17/17 00:00 Room Air 01/16/17 23:24 36.3 72 18 165/84 100 Room Air 01/16/17 20:00 Room Air 01/16/17 19:25 36.3 76 18 168/90 99 Room Air Lab Results: Results Past 24 Hours Test 01/17/17 06:40 Range/Units White Blood Count 5.14 4.8-10.8 K/uL Red Blood Count 2.60 4.2-5.4 M/uL Hemoglobin 7.8 12.0-16.0 g/dL Hematocrit 22.4 37-47 % Mean Corpuscular Volume 86.2 80-100 fL Mean Corpuscular Hemoglobin 30.0 25-34 pg Mean Corpuscular Hemoglobin Concent 34.8 32-36 g/dl RDW Standard Deviation 40.1 36.4-46.3 fL RDW Coefficient of Variation 12.7 11.5-14.5 % Platelet Count 208 130-400 K/uL Mean Platelet Volume 10.0 7.4-10.4 fL Nucleated RBC Absolute Count (auto) 0.02 0-0 K/uL Nucleated Red Blood Cells % 0.5 % Sodium Level 141 136-145 mmol/L Potassium Level 3.8 3.5-5.1 mmol/L Chloride Level 108 98-107 mmol/L Carbon Dioxide Level 25 21-32 mmol/L Anion Gap 8.0 3-11 mmol/L Blood Urea Nitrogen 21 7-18 mg/dl Creatinine 1.20 0.60-1.20 mg/dl Est Creatinine Clear Calc Drug Dose 34.5 ml/min Estimated GFR () 51.6 Estimated GFR (Non- 44.5 BUN/Creatinine Ratio 17.6 10-20 Random Glucose 106 70-99 mg/dl Calcium Level 7.9 8.5-10.1 mg/dl Phosphorus Level 1.7 2.5-4.9 mg/dl Magnesium Level 1.5 1.8-2.4 mg/dl
[2017-01-17] MEDS ORDERED: POTASSIUM PHOSPHATE INJ 21 MMOL in SODIUM CHLORIDE 0.9% 500ML 500 ML IV SCH (18:00)
[2017-01-17] MEDS ORDERED: HydrALAZINE HCL 20 MG/ML VIAL IV. STA (20:58)
[2017-01-18 00:04] VITALS: BP 124/71; PULSE 89; TEMP 36.9; O2SAT 94
[2017-01-18] MEDS: CEFTRIAXONE SOD INJ 1 GM in DEXTROSE 5% ADD-VANTAGE 50ML 50 ML IV SCH (00:28)
[2017-01-18] MEDS: POTASSIUM CHLORIDE INJ 40 MEQ in DEXTROSE 5% 1000ML 1,000 ML IV SCH ×2 (04:53→13:58)
--- NOTE | 2017-01-18 05:21 | Clinical Documentation Query ---
CLINICAL DOCUMENTATION QUERY 76 year old female who presents to the Emergency Room with complaints of constant lethargy. Patient has a WOCN consult where a unstageable sacral pressure ulcer was found. Query #1/2 In your clinical opinion is this patient being managed for: ( ) Pressure ulcer of sacral region, unstageable POA. ( ) Pressure ulcer of sacral region, unstageable occuring during this hospital stay. ( ) Other explanation of clinical findings (Please Explain) ( ) Unable to determine (Please Define) ( ) Need to Discuss ( ) Not Agree The medical record reflects the following clinical findings, treatment, and risk factors. Clinical Indicators: As above Treatment: WOCN consult Risk Factors: Age, malnutrition, deconditioning Query #2/2 In your clinical opinion is this patient being managed for: ( ) Severe malnutrition evidenced by +muscle weakness, dysphagia, pressure ulcer, and BMI of 20.1 ( ) Other explanation of clinical findings (Please Explain) ( ) Unable to determine (Please Define) ( ) Need to Discuss ( ) Not Agree The medical record reflects the following clinical findings, treatment, and risk factors. Clinical Indicators: +weakness, +dehydration, JAJA, BMI 20.1, 53.2 kg's, pressure ulcer to sacrum. Per nephrology "failure to thrive and malnutrition." Treatment: GI consult Risk Factors: Age, recent sepsis, Malnutrition Characteristics (2 of 6) in Acute Illness/Injury CHARACTERISTICS MODERATE MALNUTRITION SEVERE MALNUTRITION ENERGY INTAKE <75% of estimated energyrequirement for >7 days <50% of estimated energyrequirement for >5 days WEIGHT LOSS 1-2%/1 week 5%/1 month 7.5%/3 months >1-2%/1 week >5%/1 month >7.5%/3 months BODY FAT*loss of SQ fat from the orbits,triceps, or fat overlying the ribs MILD MODERATE MUSCLE MASS*muscle wasting at the temples,clavicles, shoulders, interosseousspaces,scapula, thigh, calf MILD MODERATE FLUID ACCUMULATION*localized or generalized edemaof the extremities, vulva, scrotumweight loss may be masked byedema MILD MODERATE-SEVERE POSTPARTUM NURSE STRENGTH N/A measurably decreased perthe device's standards Malnutrition Characteristics (2 of 6) in Chronic Illness CHARACTERISTICS MODERATE MALNUTRITION SEVERE MALNUTRITION ENERGY INTAKE <75% of estimated energyrequirement for >1 month <75% of estimated energyrequirement for >1 month WEIGHT LOSS 5%/1 month 7.5%/3 months 10%/6 months 20%/1 year > 5%/1 month >7.5%/3 months >10%/6 months >20%/1 year BODY FAT*loss of SQ fat from the orbits,triceps, or fat overlying the ribs MILD SEVERE MUSCLE MASS*muscle wasting at the temples,clavicles, shoulders, interosseousspaces,scapula, thigh, calf MILD SEVERE FLUID ACCUMULATION*localized or generalized edemaof the extremities, vulva, scrotumweight loss may be masked byedema MILD SEVERE POSTPARTUM NURSE STRENGTH N/A measurably decreased perthe device's standards Please clarify and document your clinical opinion in the progress notes and discharge summary. Terms such as "probable", "suspected", "likely", "questionable", "possible", or "still to be ruled out" are acceptable. IF IN AGREEMENT, YOU MUST DOCUMENT ABOVE DIAGNOSTIC STATEMENT IN DAILY PROGRESS NOTES AND DISCHARGE SUMMARY. This document is not part of the patient's record. Thank You, Wily Contreras, DAVIDE [phone]
[2017-01-18] MEDS: HEPARIN SOD 5000 UNIT/0.5 ML CARP SQ SCH ×3 (05:57→22:17)
[2017-01-18 06:05] LABS: HEMATOCRIT 22.5 % (37-47); MEAN CELL VOLUME 82.7 fL (80-100); MEAN CORPUSCULAR HEMOGLOBIN 29.8 pg (25-34); MEAN PLATELET VOLUME 9.9 fL (7.4-10.4); PLATELET COUNT 186 K/uL (130-400); RED BLOOD COUNT 2.72 M/uL (4.2-5.4); WHITE BLOOD COUNT 5.95 K/uL (4.8-10.8)
[2017-01-18 06:52] LABS: BLOOD UREA NITROGEN 17 mg/dl (7-18); BUN/CREATININE RATIO 14.4 (10-20); CALCIUM 7.9 mg/dl (8.5-10.1); CARBON DIOXIDE 18 mmol/L (21-32); CHLORIDE 107 mmol/L (98-107); GLUCOSE 135 mg/dl (70-99); PHOSPHORUS 3.1 mg/dl (2.5-4.9); SODIUM 137 mmol/L (136-145)
[2017-01-18] MEDS: FERROUS SULFATE 325 MG TAB PO SCH (08:06)
[2017-01-18] MEDS: CARVEDILOL 3.125 MG TAB PO SCH ×2 (08:06→20:35)
[2017-01-18] MEDS: POTASSIUM CHLORIDE 20 MEQ TABCR PO SCH (08:06)
[2017-01-18] MEDS: SENNA 8.6 MG TAB PO SCH (08:07)
[2017-01-18] MEDS: PANTOprazole SOD 40 MG TAB PO SCH (08:07)
[2017-01-18 08:17] VITALS: BP 136/81; PULSE 91; TEMP 36; O2SAT 100
--- NOTE | 2017-01-18 10:58 | Gastroenterology Progress Note ---
Progress Note Date of Service: Jan 18, 2017 Subjective Pt evaluation today including: conversation w/ patient, physical exam, lab review Pt was seen and examined today. Pt is still very lethargic. She is not abusable to name or stimuli. ROS not obtained. Medications Current Inpatient Medications Medications (Trade) Dose Ordered Sig/Donald Route Start Time Stop Time Status Last Admin Dose Admin Heparin Sodium (Porcine) (Heparin Sq 5000 Unit/0.5ml) 5,000 unit Q8 SQ 01/15/17 06:00 02/14/17 05:59 01/18/17 05:57 5,000 UNIT Acetaminophen (Tylenol Tab) 650 mg Q4H PRN PO 01/15/17 03:15 02/14/17 03:14 Al Hydrox/Mg Hydrox/Simethicone (Maalox Max Susp) 15 ml Q4H PRN PO 01/15/17 03:15 02/14/17 03:14 Magnesium Hydroxide (Milk Of Magnesia Susp) 30 ml Q12H PRN PO 01/15/17 03:15 02/14/17 03:14 Ondansetron HCl (Zofran Inj) 4 mg Q6H PRN IV 01/15/17 03:15 02/14/17 03:14 Nitroglycerin (Nitrostat Tab) 0.4 mg UD PRN SL 01/15/17 03:15 02/14/17 03:14 Polyethylene 17 gm 17 gm DAILY PRN PO 01/15/17 03:15 02/14/17 03:14 Ceftriaxone Sodium/Dextrose (Rocephin Inj/ Dextrose Add-Hemphill 50ML) 50 ml @ 100 mls/hr Q24H IV 01/16/17 01:00 01/19/17 01:29 01/18/17 00:28 100 MLS/HR Carvedilol (Coreg Tab) 3.125 mg BID PO 01/15/17 09:00 02/14/17 08:59 01/16/17 08:38 3.125 MG Ferrous Sulfate (Feosol Tab) 325 mg DAILY PO 01/15/17 09:00 02/14/17 08:59 01/15/17 07:37 325 MG Ondansetron HCl (Zofran Tab) 4 mg Q6H PRN PO 01/15/17 03:15 02/14/17 03:14 Pantoprazole Sodium (Protonix Tab) 40 mg DAILY PO 01/15/17 09:00 02/14/17 08:59 01/15/17 07:37 40 MG Potassium Chloride (Klor-Con Tab) 20 meq DAILY PO 01/15/17 09:00 02/14/17 08:59 01/15/17 07:36 20 MEQ Senna (Senokot Tab) 17.2 mg DAILY PO 01/15/17 09:00 02/14/17 08:59 01/15/17 07:37 17.2 MG Tramadol HCl (Ultram Tab) 50 mg Q8H PRN PO 01/15/17 03:15 02/14/17 03:14 Miscellaneous Information (Order Awaiting Action) 1 ea QS N/A 01/15/17 08:00 02/14/17 07:59 Oxycodone HCl 10 mg 10 mg Q8 PRN PO 01/15/17 03:15 02/14/17 03:14 Potassium Chloride/Dextrose (KCl Inj/D5W 1000ml) 1,020 ml @ 100 mls/hr [id number] IV 01/16/17 11:00 02/15/17 10:14 01/18/17 04:53 100 MLS/HR Objective Vital Signs Date Time Temp Pulse Resp B/P Pulse Ox O2 Delivery O2 Flow Rate FiO2 01/18/17 08:45 Room Air 01/18/17 08:17 36.0 91 20 136/81 100 01/18/17 04:00 Room Air 01/18/17 00:04 36.9 89 20 124/71 94 Room Air 01/18/17 00:00 Room Air 01/17/17 22:21 88 119/67 01/17/17 20:04 36.3 78 16 171/79 100 Room Air 01/17/17 20:00 100 Room Air 01/17/17 16:17 36.5 81 16 152/86 100 Room Air 01/17/17 16:00 100 Room Air 01/17/17 12:45 Room Air 01/17/17 11:34 36.2 79 16 146/71 100 Room Air Physical Exam General Appearance: no apparent distress Eyes: PERRL ENT: hearing grossly normal Neck: supple, trachea midline Respiratory/Chest: normal breath sounds, no respiratory distress, no accessory muscle use Cardiovascular: regular rate, rhythm Abdomen: normal bowel sounds, soft, no organomegaly, no pulsatile mass Neurologic/Psych: + pertinent finding (mildy responsive to stimuli) Skin: normal color, no jaundice, warm/dry, no rash Laboratory Results Last 24 Hours Test 01/18/17 05:51 White Blood Count 5.95 K/uL Red Blood Count 2.72 M/uL Hemoglobin 8.1 g/dL Hematocrit 22.5 % Mean Corpuscular Volume 82.7 fL Mean Corpuscular Hemoglobin 29.8 pg Mean Corpuscular Hemoglobin Concent 36.0 g/dl RDW Standard Deviation 38.0 fL RDW Coefficient of Variation 12.7 % Platelet Count 186 K/uL Mean Platelet Volume 9.9 fL Nucleated RBC Absolute Count (auto) 0.04 K/uL Nucleated Red Blood Cells % 0.7 % Sodium Level 137 mmol/L Potassium Level mmol/L Chloride Level 107 mmol/L Carbon Dioxide Level 18 mmol/L Anion Gap 12.0 mmol/L Blood Urea Nitrogen 17 mg/dl Creatinine 1.20 mg/dl Est Creatinine Clear Calc Drug Dose 34.5 ml/min Estimated GFR () 51.6 Estimated GFR (Non- 44.5 BUN/Creatinine Ratio 14.4 Random Glucose 135 mg/dl Calcium Level 7.9 mg/dl Phosphorus Level 3.1 mg/dl Magnesium Level mg/dl Assessment and Plan Patient is a 76 year old female w/ recent hospitalization for JAJA and sepsis who was discharged to a custodial w/ decreased PO intake, hypernatremia, hypokalemia, AMS and failure to thrive. Patient was not interactive during exam , per nursing staff there is no PO intake. Recent barium swallow at [place] unremarkable. Plan PPI BID Continue ongoing correction of underlying electrolyte imbalances Diet as tolerated Suggest thorough workup for depressed mentation GI will to sign off. Please call with any changes and reconsult if dysphagia is able to be evaluated. I have seen, examined and agree with the plan as outlined by DINESH Garcia as above. -still with depressed mentation -will need AMS w/u including ABG, infectious etc, this was relayed to primary team
[2017-01-18 11:42] VITALS: BP 138/77; PULSE 95; TEMP 35.6; O2SAT 100
[2017-01-18 12:28] LABS: MAGNESIUM 1.9 mg/dl (1.8-2.4)
[2017-01-18 14:04] LABS: POTASSIUM 4.9 mmol/L (3.5-5.1)
[2017-01-18 15:23] VITALS: BP 127/82; PULSE 84; TEMP 36.5; O2SAT 100
--- NOTE | 2017-01-18 15:34 | DIAGNOSTIC IMAGING REPORT ---
CT OF THE HEAD WITHOUT CONTRAST CLINICAL HISTORY: Confusion. COMPARISON STUDY: Head CT January 14, 2017. CT DOSE: 614.27 mGy.cm TECHNIQUE: Helical axial images of the head were obtained without IV contrast. Automated exposure control was utilized for the study. FINDINGS: No acute intracranial hemorrhage, midline shift or mass effect is present. Ventricular system is unremarkable. Basilar cisterns are patent. There are no extra-axial collections. Moderate white matter hypodensity suggests small vessel disease. There are no findings to suggest acute dural sinus thrombosis or acute territorial infarct. There are no significant calvarial abnormalities. Visualized portions of the sinuses and the mastoid air cells are clear. IMPRESSION: No acute intracranial findings. Electronically signed by: Dre Velázquez M.D. 01/18/2017 3:32 PM Dictated Date/Time: 01/18/2017 3:29 PM
[2017-01-18 19:38] VITALS: BP 120/80; PULSE 95; TEMP 36.4; O2SAT 100
--- NOTE | 2017-01-18 20:01 | Progress Note ---
Internal Med Progress Note Date of Service: Jan 18, 2017. Provider Documentation: SUBJECTIVE: not talking drowsy moves extremities afebrile hemodynamics stable OBJECTIVE: Vital Signs-as noted below Exam: General-drowsy Neck-no neck masses Lungs-cta b/l no added sounds Heart-s1 and s2 heard no murmurs Abdomen-soft bowel sounds no distension Extremities-no edema no erythema Neuro-drowsy moves extremities Lab data as noted below. ASSESSMENT & PLAN: Metabolic Encephalopathy No h/o Dementia.condition has been getting worse for the last few weeks as per the daughters but was stable 4 weeks ago Hypernatremia-improved mental status still same 'repeat ct head unremarkable will check vitam b12, thiamine will consult neurology n am ACUTE KIDNEY INJURY Secondary to DEHYDRATION due to poor oral intake improved with fluids HYPERNATREMIA: improved with fluids 'appreciate nephrology inputs Electrolytes Imbalance replaced will f/u labs Dysphagia with Vomiting Difficulty in swallowing for a while Has vomiting associated with it Barium swallow in [facility]-unremarkable GI holding on EGD until mental status improves MILD ELEVATION OF TROPONIN : normalized POSSIBLE UTI : UA grossly positive was on Rocephin cx unremarkable abx stopped Code status full Dvt px hep sub q Disposition To be determined Vital Signs: Date Time Temp Pulse Resp B/P Pulse Ox O2 Delivery O2 Flow Rate FiO2 01/18/17 19:38 36.4 95 20 120/80 100 Room Air 01/18/17 16:30 Room Air 01/18/17 15:23 36.5 84 18 127/82 100 Room Air 01/18/17 12:30 Room Air 01/18/17 11:42 35.6 95 20 138/77 100 01/18/17 08:45 Room Air 01/18/17 08:17 36.0 91 20 136/81 100 01/18/17 04:00 Room Air 01/18/17 00:04 36.9 89 20 124/71 94 Room Air 01/18/17 00:00 Room Air 01/17/17 22:21 88 119/67 01/17/17 20:04 36.3 78 16 171/79 100 Room Air 01/17/17 20:00 100 Room Air Lab Results: Results Past 24 Hours Test 01/18/17 05:51 01/18/17 11:55 Range/Units White Blood Count 5.95 4.8-10.8 K/uL Red Blood Count 2.72 4.2-5.4 M/uL Hemoglobin 8.1 12.0-16.0 g/dL Hematocrit 22.5 37-47 % Mean Corpuscular Volume 82.7 80-100 fL Mean Corpuscular Hemoglobin 29.8 25-34 pg Mean Corpuscular Hemoglobin Concent 36.0 32-36 g/dl RDW Standard Deviation 38.0 36.4-46.3 fL RDW Coefficient of Variation 12.7 11.5-14.5 % Platelet Count 186 130-400 K/uL Mean Platelet Volume 9.9 7.4-10.4 fL Nucleated RBC Absolute Count (auto) 0.04 0-0 K/uL Nucleated Red Blood Cells % 0.7 % Sodium Level 137 136-145 mmol/L Potassium Level 4.9 3.5-5.1 mmol/L Chloride Level 107 98-107 mmol/L Carbon Dioxide Level 18 21-32 mmol/L Anion Gap 12.0 3-11 mmol/L Blood Urea Nitrogen 17 7-18 mg/dl Creatinine 1.20 0.60-1.20 mg/dl Est Creatinine Clear Calc Drug Dose 34.5 ml/min Estimated GFR () 51.6 Estimated GFR (Non- 44.5 BUN/Creatinine Ratio 14.4 10-20 Random Glucose 135 70-99 mg/dl Calcium Level 7.9 8.5-10.1 mg/dl Phosphorus Level 3.1 2.5-4.9 mg/dl Magnesium Level 1.9 1.8-2.4 mg/dl
[2017-01-18 20:05] VITALS: O2SAT 100
[2017-01-19] VITALS (14 sets, daily range): BP systolic 108–153; BP diastolic 71–83; PULSE 78–93; TEMP 35.2–36.6; O2SAT 91–100
[2017-01-19] MEDS: POTASSIUM CHLORIDE INJ 40 MEQ in DEXTROSE 5% 1000ML 1,000 ML IV SCH (01:07)
[2017-01-19] MEDS: CEFTRIAXONE SOD INJ 1 GM in DEXTROSE 5% ADD-VANTAGE 50ML 50 ML IV SCH (01:07)
[2017-01-19] MEDS: ONDANSETRON INJ 2 MG/ML 2 ML VIAL IV PRN ×2 (04:45→10:23)
[2017-01-19] MEDS: HEPARIN SOD 5000 UNIT/0.5 ML CARP SQ SCH ×2 (06:06→14:02)
[2017-01-19 06:32] LABS: HEMATOCRIT 25.5 % (37-47); MEAN CELL VOLUME 81.5 fL (80-100); MEAN CORPUSCULAR HGB CONC 36.9 g/dl (32-36); MEAN PLATELET VOLUME 9.9 fL (7.4-10.4); PLATELET COUNT 226 K/uL (130-400); RED BLOOD COUNT 3.13 M/uL (4.2-5.4); WHITE BLOOD COUNT 8.07 K/uL (4.8-10.8)
[2017-01-19 07:46] LABS: BUN/CREATININE RATIO 13.7 (10-20); CALCIUM 8.1 mg/dl (8.5-10.1); CREATININE 1.5 mg/dl (0.60-1.20); POTASSIUM 5.4 mmol/L (3.5-5.1)
[2017-01-19] MEDS ORDERED: SODIUM BICARBONATE 8.4% INJ 75 MEQ in DEXTROSE 5% 1000ML 1,000 ML IV STA ×2 (08:46→08:58)
[2017-01-19] MEDS ORDERED: SODIUM POLYST. SULF SUSP 15G/60ML PO ONE (09:00)
[2017-01-19] MEDS ORDERED: NURSING VERBAL MED ORDER ONE ×2 (09:00→23:15)
[2017-01-19] MEDS ORDERED: SODIUM CHLORIDE 0.9% 1000ML 1,000 ML IV SCH (09:00)
[2017-01-19] MEDS ORDERED: PANTOprazole INJ 80 MG in DEXTROSE 5% 100ML IV SCH (11:15)
[2017-01-19] MEDS: PANTOprazole INJ 40 MG in DEXTROSE 5% 100ML IV SCH ×3 (11:32→21:30)
[2017-01-19] MEDS: CARVEDILOL 3.125 MG TAB PO SCH ×2 (13:28→21:06)
--- NOTE | 2017-01-19 13:49 | DIAGNOSTIC IMAGING REPORT ---
AP CHEST WITH ABDOMINAL SERIES CLINICAL HISTORY: Nausea and vomiting. Generalized abdominal pain. FINDINGS: An AP, portable, semierect chest radiograph is compared to study dated 01/14/2017. The cardiomediastinal silhouette is unremarkable. There is atherosclerotic calcification of the thoracic aorta. The pulmonary vasculature is noncongested. Chronic interstitial thickening is unchanged. The lungs and pleural spaces are clear. No pneumothorax is seen. The skeletal structures are osteopenic. Degenerative changes noted throughout the thoracic spine. Supine and decubitus abdominal radiographs are obtained. No prior studies are available for comparison at the time of dictation. The examination is significant degraded by portable technique and motion artifact. There is no evidence of intraperitoneal free air. There is enteric contrast present throughout the bowel. The colon appears gas filled and distended. There is no clear radiographic evidence of bowel obstruction. A large density in the pelvis likely represents a distended bladder. No abnormal abdominal calcifications are seen. There is moderate to advanced spondylosis. The bony pelvis appears intact. IMPRESSION: 1. No active disease in the chest. 2. There is no clear radiographic evidence of small bowel obstruction. No intraperitoneal free air is seen. 3. There is residual enteric contrast within the colon which appears mildly distended and gas-filled. 4. Suspect marked bladder distention. Electronically signed by: Jez Avina M.D. 01/19/2017 1:47 PM Dictated Date/Time: 01/19/2017 1:43 PM
--- NOTE | 2017-01-19 14:50 | Neurology Consultation ---
Neurology Consultation Date of Consultation: Jan 19, 2017. Attending Physician: Mickey Beltrán MD Primary Care Physician: Shoaib Kelly MD Reason for Consultation: confusion History of Present Illness Source: patient Chikis is a 76 year old female with worsening baseline MS, recent prolonged [facility] admission for JAJA and sepsis, 01/03-01/13. She has had failure to thrive past 4-6 wks, R hip fracture after a fall s/p R IM nailing earlier this year. she has had worsening MS w/ lethargy, She had been living at home with family nearby earlier this year, had significant N/V and difficulty taking po reliably leading to weakness and recurrent falls. On admission to [facility] her sodium was 151, K 3.2, creatinine 1.7. Urine was contaminated but did have granular casts and other evidence of inflammation v infection. according to [place] notes she had not had any oral intake since arriving at the nursing facility and had continued confusion which worsened after arrival. on arrival she had severe dehydration and JAJA. Nursing reports her MS has been the same since admission. She is currently on no sedation. Past Medical/Surgical History Medical Problems: (1) Dehydration Status: Acute (2) Hypernatremia Status: Acute (3) Lethargic Status: Acute (4) Renal insufficiency Status: Acute (5) UTI (urinary tract infection) Status: Acute Social History Drug Use: none Housing Status: skilled nursing Occupation Status: retired Allergies Coded Allergies: No Known Allergies (Unverified , 01/14/17) Current Inpatient Medications Current Inpatient Medications Medications (Trade) Dose Ordered Sig/Donald Route Start Time Stop Time Status Last Admin Dose Admin Heparin Sodium (Porcine) (Heparin Sq 5000 Unit/0.5ml) 5,000 unit Q8 SQ 01/15/17 06:00 02/14/17 05:59 01/19/17 14:02 5,000 UNIT Acetaminophen (Tylenol Tab) 650 mg Q4H PRN PO 01/15/17 03:15 02/14/17 03:14 Future Hold Al Hydrox/Mg Hydrox/Simethicone (Maalox Max Susp) 15 ml Q4H PRN PO 01/15/17 03:15 02/14/17 03:14 Future Hold Magnesium Hydroxide (Milk Of Magnesia Susp) 30 ml Q12H PRN PO 01/15/17 03:15 02/14/17 03:14 Future Hold Ondansetron HCl (Zofran Inj) 4 mg Q6H PRN IV 01/15/17 03:15 02/14/17 03:14 01/19/17 10:23 4 MG Nitroglycerin (Nitrostat Tab) 0.4 mg UD PRN SL 01/15/17 03:15 02/14/17 03:14 Polyethylene (Miralax Powder Packet) 17 gm DAILY PRN PO 01/15/17 03:15 02/14/17 03:14 Carvedilol (Coreg Tab) 3.125 mg BID PO 01/15/17 09:00 02/14/17 08:59 01/16/17 08:38 3.125 MG Ferrous Sulfate (Feosol Tab) 325 mg DAILY PO 01/15/17 09:00 02/14/17 08:59 Future Hold 01/15/17 07:37 325 MG Ondansetron HCl (Zofran Tab) 4 mg Q6H PRN PO 01/15/17 03:15 02/14/17 03:14 Future Hold Pantoprazole Sodium (Protonix Tab) 40 mg DAILY PO 01/15/17 09:00 02/14/17 08:59 Future Hold 01/15/17 07:37 40 MG Senna (Senokot Tab) 17.2 mg DAILY PO 01/15/17 09:00 02/14/17 08:59 Future Hold 01/15/17 07:37 17.2 MG Tramadol HCl (Ultram Tab) 50 mg Q8H PRN PO 01/15/17 03:15 02/14/17 03:14 Future Hold Miscellaneous Information (Order Awaiting Action) 1 ea QS N/A 01/15/17 08:00 02/14/17 07:59 Oxycodone HCl 10 mg 10 mg Q8 PRN PO 01/15/17 03:15 02/14/17 03:14 Future Hold Sodium Bicarbonate 75 meq/Dextrose 1,075 ml @ 80 mls/hr [id number] STAT IV 01/19/17 08:58 01/19/17 22:24 01/19/17 10:24 80 MLS/HR Pantoprazole Sodium/Dextrose (Protonix Inj/D5 100ml) 100 ml @ 20 mls/hr Q5H IV 01/19/17 11:30 02/18/17 11:29 01/19/17 11:32 20 MLS/HR Physical Exam Vital Signs (Past 24 Hrs): Date Time Temp Pulse Resp B/P Pulse Ox O2 Delivery O2 Flow Rate FiO2 01/19/17 12:00 Room Air 01/19/17 11:37 35.7 78 16 108/72 100 Room Air 01/19/17 08:12 36.4 93 16 153/77 100 Room Air 01/19/17 08:00 Room Air 01/19/17 04:05 100 Room Air 01/19/17 04:00 36.4 90 18 110/83 100 Room Air 01/19/17 00:20 36.3 90 18 140/74 99 Room Air 01/19/17 00:05 100 Room Air 01/18/17 20:05 100 Room Air 01/18/17 19:38 36.4 95 20 120/80 100 Room Air 01/18/17 16:30 Room Air 01/18/17 15:23 36.5 84 18 127/82 100 Room Air Laboratory Results Past 24 Hours: 01/19/17 06:07 01/19/17 06:07 Test 01/19/17 00:00 01/19/17 06:07 Stool Occult Blood NEGATIVE (NEGATIVE) Red Blood Count 3.13 M/uL (4.2-5.4) Mean Corpuscular Volume 81.5 fL (80-100) Mean Corpuscular Hemoglobin 30.0 pg (25-34) Mean Corpuscular Hemoglobin Concent 36.9 g/dl (32-36) RDW Standard Deviation 37.7 fL (36.4-46.3) RDW Coefficient of Variation 12.8 % (11.5-14.5) Mean Platelet Volume 9.9 fL (7.4-10.4) Nucleated RBC Absolute Count (auto) 0.09 K/uL (0-0) Nucleated Red Blood Cells % 1.1 % Anion Gap 13.0 mmol/L (3-11) Est Creatinine Clear Calc Drug Dose 28.2 ml/min Estimated GFR () 39.4 Estimated GFR (Non- 34.0 BUN/Creatinine Ratio 13.7 (10-20) Calcium Level 8.1 mg/dl (8.5-10.1) Magnesium Level 1.8 mg/dl (1.8-2.4) Imaging TTE * The left ventricular cavity is small. * The left ventricular wall motion is normal. * Left ventricular systolic function is normal. * Ejection Fraction = 60-65%. * Grade I diastolic dysfunction, (abnormal relaxation pattern). * Aortic valve sclerosis mild, without significant aortic valvular stenosis. * Trace aortic regurgitation. * There is no pericardial effusion. * no ASD Impression 76 year old with progressive dementia and acute MS change hx sepsis and JAJA, dehydration Plan 1. family input would be helpful to know what her baseline mentation and discuss expectations 2. labs -b12, folate, Lyme, RPR, TSH -already done 3. MRI brain with and without may be helpful if not recently done in one of her other admissions 4. further recommendations to follow I have seen and discussed above patient with Dr Mary Chauhan, neurology . CT head bl chronic ischemic changes. Pt sleepy,minimally arousable. Follows no commands. Perrla, no fixed gaze preference, mild flattening R nlf. UE drifts symmetrically, LE bl withdrawal. IMP encephalopathy superimposed on dementia, unclear etiology. Related to hypernatremia, renal failure. Agree with thiamine supplementation given poor oral intake. Rec EEG r/o subclinical sz. MRI brain and if not revealing, LP might be appropriate if family wants an aggressive approach. GIOVANNI Chauhan MD
[2017-01-19 15:00] LABS: HEMATOCRIT 21.1 % (37-47)
[2017-01-19 16:17] LABS: ARTERIAL BLD GAS O2 SATURATION 93.9 % (90-95); ARTERIAL BLOOD GAS HCO3 18 mmol/L (19-24); ARTERIAL BLOOD GAS PO2 124 mm/Hg (80-95)
[2017-01-19 16:20] LABS: ALLEN TEST ROOM AIR (POS); O2 ADMINISTRATION P
[2017-01-19 16:24] LABS: ARTERIAL BLOOD GAS pH 7.51 (7.35-7.45)
[2017-01-19] MEDS ORDERED: PIPERACILL/TAZOBAC CONSULT ACTIVE PRN (16:30)
--- NOTE | 2017-01-19 16:48 | Nephrology Progress Note ---
Nephrology Progress Note Date of Service: Jan 19, 2017. Subjective minimal interaction w/ me on rounds this am when I saw her at 0845; till w/ poor po intake. K elevated this am; no dyspnea Objective Date Time Temp Pulse Resp B/P Pulse Ox O2 Delivery O2 Flow Rate FiO2 01/19/17 15:06 35.5 88 16 139/74 100 Room Air 01/19/17 14:52 35.2 01/19/17 12:00 Room Air 01/19/17 11:37 35.7 78 16 108/72 100 Room Air 01/19/17 08:12 36.4 93 16 153/77 100 Room Air 01/19/17 08:00 Room Air 01/19/17 04:05 100 Room Air 01/19/17 04:00 36.4 90 18 110/83 100 Room Air 01/19/17 00:20 36.3 90 18 140/74 99 Room Air 01/19/17 00:05 100 Room Air 01/18/17 20:05 100 Room Air 01/18/17 19:38 36.4 95 20 120/80 100 Room Air Physical Exam: General Appearance: WD/WN, nad, lying flat on RA moaning/not interactive today Eyes: EOMI ENT: hearing grossly normal Neck: supple Respiratory/Chest: lungs clear, no respiratory distress, + decreased breath sounds Cardiovascular: regular rate, rhythm, no edema Abdomen: normal bowel sounds, soft, today no TTP Extremities: normal inspection, no pedal edema Neurologic/Psych: talamantes Skin: no jaundice, warm/dry, no rash Current Inpatient Medications Medications (Trade) Dose Ordered Sig/Donald Route Start Time Stop Time Status Last Admin Dose Admin Heparin Sodium (Porcine) (Heparin Sq 5000 Unit/0.5ml) 5,000 unit Q8 SQ 01/15/17 06:00 02/14/17 05:59 01/19/17 14:02 5,000 UNIT Acetaminophen (Tylenol Tab) 650 mg Q4H PRN PO 01/15/17 03:15 02/14/17 03:14 Future Hold Al Hydrox/Mg Hydrox/Simethicone (Maalox Max Susp) 15 ml Q4H PRN PO 01/15/17 03:15 02/14/17 03:14 Future Hold Magnesium Hydroxide (Milk Of Magnesia Susp) 30 ml Q12H PRN PO 01/15/17 03:15 02/14/17 03:14 Future Hold Ondansetron HCl (Zofran Inj) 4 mg Q6H PRN IV 01/15/17 03:15 02/14/17 03:14 01/19/17 10:23 4 MG Nitroglycerin (Nitrostat Tab) 0.4 mg UD PRN SL 01/15/17 03:15 02/14/17 03:14 Polyethylene (Miralax Powder Packet) 17 gm DAILY PRN PO 01/15/17 03:15 02/14/17 03:14 Carvedilol (Coreg Tab) 3.125 mg BID PO 01/15/17 09:00 02/14/17 08:59 01/16/17 08:38 3.125 MG Ferrous Sulfate (Feosol Tab) 325 mg DAILY PO 01/15/17 09:00 02/14/17 08:59 Future Hold 01/15/17 07:37 325 MG Ondansetron HCl (Zofran Tab) 4 mg Q6H PRN PO 01/15/17 03:15 02/14/17 03:14 Future Hold Pantoprazole Sodium (Protonix Tab) 40 mg DAILY PO 01/15/17 09:00 02/14/17 08:59 Future Hold 01/15/17 07:37 40 MG Senna (Senokot Tab) 17.2 mg DAILY PO 01/15/17 09:00 02/14/17 08:59 Future Hold 01/15/17 07:37 17.2 MG Tramadol HCl (Ultram Tab) 50 mg Q8H PRN PO 01/15/17 03:15 02/14/17 03:14 Future Hold Miscellaneous Information (Order Awaiting Action) 1 ea QS N/A 01/15/17 08:00 02/14/17 07:59 Oxycodone HCl 10 mg 10 mg Q8 PRN PO 01/15/17 03:15 02/14/17 03:14 Future Hold Sodium Bicarbonate 75 meq/Dextrose 1,075 ml @ 80 mls/hr [id number] STAT IV 01/19/17 08:58 01/19/17 22:24 01/19/17 10:24 80 MLS/HR Pantoprazole Sodium 40 mg/ Dextrose 100 ml @ 20 mls/hr Q5H IV 01/19/17 11:30 02/18/17 11:29 01/19/17 16:20 20 MLS/HR Piperacillin Sod/ Tazobactam Sod/ Dextrose (Zosyn Iv/D5 100ml) 115 ml @ 200 mls/hr NOW ONCE IV 01/19/17 17:00 01/19/17 17:34 Piperacillin Sod/ Tazobactam Sod 1 ea 1 ea UD PRN N/A 01/19/17 16:30 02/18/17 16:29 Piperacillin Sod/ Tazobactam Sod/ Dextrose (Zosyn Iv/D5 100ml) 115 ml @ 28.75 mls/ hr Q8H IV 01/20/17 00:00 01/21/17 16:59 Last 24 Hours Test 01/19/17 00:00 01/19/17 06:07 01/19/17 14:31 01/19/17 15:19 Stool Occult Blood NEGATIVE White Blood Count 8.07 K/uL Red Blood Count 3.13 M/uL Hemoglobin 9.4 g/dL 7.8 g/dL Hematocrit 25.5 % 21.1 % Mean Corpuscular Volume 81.5 fL Mean Corpuscular Hemoglobin 30.0 pg Mean Corpuscular Hemoglobin Concent 36.9 g/dl RDW Standard Deviation 37.7 fL RDW Coefficient of Variation 12.8 % Platelet Count 226 K/uL Mean Platelet Volume 9.9 fL Nucleated RBC Absolute Count (auto) 0.09 K/uL Nucleated Red Blood Cells % 1.1 % Sodium Level 133 mmol/L Potassium Level 5.4 mmol/L Chloride Level 101 mmol/L Carbon Dioxide Level 19 mmol/L Anion Gap 13.0 mmol/L Blood Urea Nitrogen 21 mg/dl Creatinine 1.50 mg/dl Est Creatinine Clear Calc Drug Dose 28.2 ml/min Estimated GFR () 39.4 Estimated GFR (Non- 34.0 BUN/Creatinine Ratio 13.7 Random Glucose 147 mg/dl Calcium Level 8.1 mg/dl Magnesium Level 1.8 mg/dl Test 01/19/17 15:57 01/19/17 16:05 Arterial Blood pH 7.51 Arterial Blood Partial Pressure CO2 22 mmHg Arterial Blood Partial Pressure O2 124 mm/Hg Arterial Blood HCO3 18 mmol/L Arterial Blood Oxygen Saturation 93.9 % Arterial Blood Base Excess -5.0 mEq/L Arterial Blood Gas Delivery P Angel Test ROOM AIR Date/Time Source Procedure Growth Status 01/19/17 16:00 Blood Blood Culture Pending Received 01/19/17 15:57 Blood Blood Culture Pending Received Assessment & Plan 76 y/o F w/ HTN, recent R hip procedure several weeks ago, recent JAJA from which she is still recovering,, failure to thrive past 4-6 wks sent from rehab less than 36 hrs after d/c w/ hypernatremia, hypokalemia, ongoing renal failure (admitting creat 1.7), poor po/uop and altered mental status. She is hardly taking po. Baseline creatinine 0.8 earlier this year. d/c creat from [facility] on 01/13 1.4 w/ Na 148. Chronic hypernatremia, corrected/ now w/ mild hyponatremia today adn now w/ hyperkalemia and low bicarb -changed po fluids to D5W w/ 75 mg sodium bicarb; no kayexalate needed to correct this K just yet -encourage po intake as below -repeat K and na pending Altered mental status > metabolic encephalopathy -given recent ortho procedure > ESR and blood cultures>cxs ngtd -baseline mental status not known > no mention of or meds for dementia Acute renal failure> had ATN last hospital stay; at least partly prerenal component here as she improved w/ fluids at first, though now worsening again Baseline creatinine 0.8; may not reach this again. creatinine stable at 1.2 from admission, improving from admission -bmp as above -data from this afternoon suggest urinary retention > may need newby; str cath for 1L -may need newby if retains again > recommend bladder scan q shift Appreciate consult; will follow with you.
[2017-01-19 16:50] LABS: HEMATOCRIT 20.5 % (37-47); MEAN CORPUSCULAR HEMOGLOBIN 29.6 pg (25-34); MEAN CORPUSCULAR HGB CONC 36.1 g/dl (32-36); MEAN PLATELET VOLUME 10.2 fL (7.4-10.4); PLATELET COUNT 178 K/uL (130-400); WHITE BLOOD COUNT 7.91 K/uL (4.8-10.8)
[2017-01-19 16:51] LABS: ALT/SGPT 14 U/L (12-78); AST/SGOT 15 U/L (15-37); BLOOD UREA NITROGEN 22 mg/dl (7-18); BUN/CREATININE RATIO 12.4 (10-20); CALCIUM 7.9 mg/dl (8.5-10.1); CARBON DIOXIDE 20 mmol/L (21-32); CHLORIDE 100 mmol/L (98-107); GLUCOSE 213 mg/dl (70-99); MAGNESIUM 1.7 mg/dl (1.8-2.4); POTASSIUM 4.9 mmol/L (3.5-5.1); SODIUM 133 mmol/L (136-145)
[2017-01-19 16:57] LABS: BASO % 0.3 %; BASO ABS # 0.02 K/uL (0-0.2); COMPLETE YES; ECHINOCYTES 1+; EOS % 0.3 %; GIANT PLATELETS 1+; IG% 0.3 %; LYMPH % 13.7 %; LYMPH ABS # 1.08 K/uL (1.2-3.4); MONO % 2.4 %
[2017-01-19] MEDS ORDERED: PIPERACILL/TAZOBAC IV 3.375 GM in DEXTROSE 5% 100ML 100 ML IV ONE (17:00)
[2017-01-19 17:03] LABS: ALB/GLOB RATIO 0.6 (0.9-2); ALKALINE PHOSPHATASE 122 U/L (45-117); PHOSPHORUS 2.9 mg/dl (2.5-4.9)
[2017-01-19] MEDS: THIAMINE HCL INJ 100 MG in SYRINGE 9 ML IV SCH (17:43)
[2017-01-19] MEDS: FoLIC ACID INJ 1 MG in SYRINGE 9.8 ML IV SCH (17:43)
[2017-01-19] MEDS: CYANOCOBALAMIN 1000 MCG/ML VIAL IM SCH (17:44)
--- NOTE | 2017-01-19 17:44 | DIAGNOSTIC IMAGING REPORT ---
ABDOMEN AND PELVIS CT WITHOUT CONTRAST CT DOSE: 365.64 mGy.cm HISTORY: Nausea. Vomiting. n/v. Elevated lactic acid TECHNIQUE: Multiaxial CT images of the abdomen and pelvis were performed without contrast. COMPARISON STUDY: None. FINDINGS: Small left pleural effusion. Lung bases otherwise are clear. Liver is uniform. Gallstone filled gallbladder. Pancreas is moderate moderately fatty replaced. Kidneys negative for calcification or hydronephrosis. Mild generalized colonic ileus. The appendix is identified in part and appears unremarkable. Bladder is relatively collapsed. Small fat-containing inguinal hernias. These nonobstructive findings. No free fluid within the pelvic cul-de-sac. Degenerative changes of the osseous structures throughout. IMPRESSION: 1. Gallstone filled gallbladder. 2. Mild nonobstructive colonic ileus. 3. Otherwise negative study 4. Incidental note is made of a small left pleural effusion. Electronically signed by: Sam Mckeon M.D. 01/19/2017 5:42 PM Dictated Date/Time: 01/19/2017 5:38 PM
[2017-01-19] MEDS ORDERED: VANCOMYCIN INJ 1,000 MG in SODIUM CHLORIDE 0.9% 250ML 250 ML IV SCH (17:45)
[2017-01-19 18:13] LABS: LYME DISEASE AB IGG NEG (NEG)
--- NOTE | 2017-01-19 18:26 | DIAGNOSTIC IMAGING REPORT ---
Ultrasound right upper quadrant GALLBLADDER-ABD LIMITED CLINICAL HISTORY: cholecystitis? Pain. Nausea. TECHNIQUE: Ultrasound COMPARISON STUDY: None FINDINGS: Gallstone filled gallbladder. Gallbladder wall 3 mm. No pericholecystic fluid. Common bile duct 2 mm. Liver is uniform. Intrahepatic ducts are normal. Pancreas not seen due to overlying bowel content. Right kidney is negative for hydronephrosis. IMPRESSION: Gallstone filled gallbladder. Normal caliber bile ducts. Remainder of the study is negative Electronically signed by: Sam Mckeon M.D. 01/19/2017 6:24 PM Dictated Date/Time: 01/19/2017 6:23 PM
[2017-01-19] MEDS: SODIUM BICARBONATE 8.4% INJ 75 MEQ in SODIUM CHLORIDE 0.45% 1000ML 1,000 ML IV SCH (18:44)
[2017-01-19] MEDS ORDERED: VANCOMYCIN INJ 1,000 MG in SODIUM CHLORIDE 0.9% 250ML 250 ML IV ONE (18:45)
[2017-01-19] MEDS ORDERED: VANCOMYCIN CONSULT ACTIVE PRN (18:45)
--- NOTE | 2017-01-19 19:17 | Pharmacy Progress Note ---
Pharmacy Antibiotic Consult Date of Service: Jan 19, 2017. Pharmacy Dosing Scope Pharmacy is consulted to initiate vancomycin IV dosing therapy, order appropriate labs and adjust drug dose/frequency. Subjective The patient is a 76 year old female admitted on Jan 15, 2017 at 01:39. Objective Height (Feet): 5 Height (Inches): 4.00 Weight (Kilograms): 54.300 Lab Results (24hrs): Laboratory Tests Test 01/19/17 06:07 01/19/17 15:57 BUN/Creatinine Ratio 13.7 12.4 Blood Urea Nitrogen 21 mg/dl 22 mg/dl Creatinine 1.50 mg/dl 1.80 mg/dl White Blood Count 8.07 K/uL 7.91 K/uL Red Blood Count 2.50 M/uL Hemoglobin 7.4 g/dL Hematocrit 20.5 % Mean Corpuscular Volume 82.0 fL Mean Corpuscular Hemoglobin 29.6 pg Mean Corpuscular Hemoglobin Concent 36.1 g/dl Platelet Count 178 K/uL Mean Platelet Volume 10.2 fL Neutrophils (%) (Auto) 83.0 % Lymphocytes (%) (Auto) 13.7 % Monocytes (%) (Auto) 2.4 % Eosinophils (%) (Auto) 0.3 % Basophils (%) (Auto) 0.3 % Neutrophils # (Auto) 6.58 K/uL Lymphocytes # (Auto) 1.08 K/uL Monocytes # (Auto) 0.19 K/uL Eosinophils # (Auto) 0.02 K/uL Basophils # (Auto) 0.02 K/uL Assessment & Plan Patient started on vancomycin empirically. Had recently started zosyn empirically earlier today as well. Repeat BC x 2 are pending at this time. Nasal swab is negative for MRSA. Vancomycin: * Will give LD of vancomycin 1000 mg (~20mg/kg) x 1 * Baseline Scr closer to 0.8 mg/dl ; nephrology is currently following the patient for elevated Scr * Estimated kinetics: t1/2~30hrs, ke~0.23 hr-1, CrCl~24 ml/min * Due to unstable renal function will order a random tomorrow am to assist with further dosing Zosyn: * Received 3.375 gm iv x 1; 3.375 gm iv q 8 ordered (which is appropriate for CrCl >20ml/min) Pharmacy will continue to follow and will adjust dose/frequency as necessary. Thank you
--- NOTE | 2017-01-19 19:27 | Progress Note ---
Internal Med Progress Note Date of Service: Jan 19, 2017. Provider Documentation: SUBJECTIVE: Somewhat uncomfortable and had vomiting in morning -questionable coffee ground emesis patient also had urinary retention and after placing newby catheter seems more comfortable vitals stable except somewhat hypothermia somewhat more alert but still non verbal OBJECTIVE: Vital Signs-as noted below Exam: General-alert and awake. Non verbal Neck-no neck masses Lungs-cta b/l no added sounds Heart-s1 and s2 heard no murmurs Abdomen-soft bowel sounds no distension non tender Extremities-no edema no erythema Neuro-alert and awake mostly drowsy responds for pain stimuli Lab data as noted below. ASSESSMENT & PLAN: Metabolic Encephalopathy No h/o Dementia.condition has been getting worse for the last few weeks as per the daughters but was stable 4 weeks ago Hypernatremia-improved mental status still same 'repeat ct head unremarkable folate levels low, vitamin b12 borderline and thiamine levels pending will replace vitamins consulted neurology ACUTE KIDNEY INJURY Secondary to DEHYDRATION due to poor oral intake on fluids Elevated lactic acid hypothermia sepsis? could be from hyperventilation deconditioned patient empirically started on iv vanco and Zosyn on fluids f/u cx ct abd/pelvis mild colonic ileus Hemoccult negative ischemic bowel-unlikely as abdomen seems benign and Hemoccult negative no cholecystitis on ct scan or US will trend lactic acid and surgical consult Anemia acute on chronic? folate deficiency hb 7.4 today Hemoccult negative question of coffee ground emesis on ppi drip will transfuse 2 units prbc will f/u labs GI o board and notified HYPERNATREMIA: improved with fluids 'appreciate nephrology inputs Electrolytes Imbalance replaced will f/u labs Dysphagia with Vomiting Difficulty in swallowing for a while Has vomiting associated with it Barium swallow in [facility]-unremarkable GI holding on EGD until mental status improves MILD ELEVATION OF TROPONIN : normalized POSSIBLE UTI : UA grossly positive was on Rocephin cx unremarkable abx stopped currently on above abx and will f/u repeat cx Code status DNR d/W daughter and patient is DNR Dvt px scds for possible gi bleed Disposition To be determined Family notified patient condition Vital Signs: Date Time Temp Pulse Resp B/P Pulse Ox O2 Delivery O2 Flow Rate FiO2 01/19/17 16:00 Room Air 01/19/17 15:06 35.5 88 16 139/74 100 Room Air 01/19/17 14:52 35.2 01/19/17 12:00 Room Air 01/19/17 11:37 35.7 78 16 108/72 100 Room Air 01/19/17 08:12 36.4 93 16 153/77 100 Room Air 01/19/17 08:00 Room Air 01/19/17 04:05 100 Room Air 01/19/17 04:00 36.4 90 18 110/83 100 Room Air 01/19/17 00:20 36.3 90 18 140/74 99 Room Air 01/19/17 00:05 100 Room Air 01/18/17 20:05 100 Room Air 01/18/17 19:38 36.4 95 20 120/80 100 Room Air Lab Results: Results Past 24 Hours Test 01/19/17 00:00 01/19/17 06:07 01/19/17 14:31 01/19/17 15:19 Range/Units Stool Occult Blood NEGATIVE NEGATIVE White Blood Count 8.07 4.8-10.8 K/uL Red Blood Count 3.13 4.2-5.4 M/uL Hemoglobin 9.4 7.8 12.0-16.0 g/dL Hematocrit 25.5 21.1 37-47 % Mean Corpuscular Volume 81.5 80-100 fL Mean Corpuscular Hemoglobin 30.0 25-34 pg Mean Corpuscular Hemoglobin Concent 36.9 32-36 g/dl RDW Standard Deviation 37.7 36.4-46.3 fL RDW Coefficient of Variation 12.8 11.5-14.5 % Platelet Count 226 130-400 K/uL Mean Platelet Volume 9.9 7.4-10.4 fL Nucleated RBC Absolute Count (auto) 0.09 0-0 K/uL Nucleated Red Blood Cells % 1.1 % Sodium Level 133 136-145 mmol/L Potassium Level 5.4 3.5-5.1 mmol/L Chloride Level 101 98-107 mmol/L Carbon Dioxide Level 19 21-32 mmol/L Anion Gap 13.0 3-11 mmol/L Blood Urea Nitrogen 21 7-18 mg/dl Creatinine 1.50 0.60-1.20 mg/dl Est Creatinine Clear Calc Drug Dose 28.2 ml/min Estimated GFR () 39.4 Estimated GFR (Non- 34.0 BUN/Creatinine Ratio 13.7 10-20 Random Glucose 147 70-99 mg/dl Calcium Level 8.1 8.5-10.1 mg/dl Magnesium Level 1.8 1.8-2.4 mg/dl Vitamin B12 Level 230 211-911 pg/mL Folate 1.80 >5.38 ng/mL Lyme Disease IgG Antibody NEG NEG Test 01/19/17 15:57 01/19/17 16:05 01/19/17 17:09 Range/Units White Blood Count 7.91 4.8-10.8 K/uL Red Blood Count 2.50 4.2-5.4 M/uL Hemoglobin 7.4 12.0-16.0 g/dL Hematocrit 20.5 37-47 % Mean Corpuscular Volume 82.0 80-100 fL Mean Corpuscular Hemoglobin 29.6 25-34 pg Mean Corpuscular Hemoglobin Concent 36.1 32-36 g/dl Platelet Count 178 130-400 K/uL Mean Platelet Volume 10.2 7.4-10.4 fL Neutrophils (%) (Auto) 83.0 % Lymphocytes (%) (Auto) 13.7 % Monocytes (%) (Auto) 2.4 % Eosinophils (%) (Auto) 0.3 % Basophils (%) (Auto) 0.3 % Neutrophils # (Auto) 6.58 1.4-6.5 K/uL Lymphocytes # (Auto) 1.08 1.2-3.4 K/uL Monocytes # (Auto) 0.19 0.11-0.59 K/uL Eosinophils # (Auto) 0.02 0-0.5 K/uL Basophils # (Auto) 0.02 0-0.2 K/uL RDW Standard Deviation 38.3 36.4-46.3 fL RDW Coefficient of Variation 12.8 11.5-14.5 % Immature Granulocyte % (Auto) 0.3 % Immature Granulocyte # (Auto) 0.02 0.00-0.02 K/uL Nucleated RBC Absolute Count (auto) 0.07 0-0 K/uL Nucleated Red Blood Cells % 0.8 % Giant Platelets 1+ Echinocytes 1+ Sodium Level 133 136-145 mmol/L Potassium Level 4.9 3.5-5.1 mmol/L Chloride Level 100 98-107 mmol/L Carbon Dioxide Level 20 21-32 mmol/L Anion Gap 13.0 3-11 mmol/L Blood Urea Nitrogen 22 7-18 mg/dl Creatinine 1.80 0.60-1.20 mg/dl Est Creatinine Clear Calc Drug Dose 23.5 ml/min Estimated GFR () 31.6 Estimated GFR (Non- 27.2 BUN/Creatinine Ratio 12.4 10-20 Random Glucose 213 70-99 mg/dl Calcium Level 7.9 8.5-10.1 mg/dl Phosphorus Level 2.9 2.5-4.9 mg/dl Magnesium Level 1.7 1.8-2.4 mg/dl Total Bilirubin 0.6 0.2-1 mg/dl Aspartate Amino Transf (AST/SGOT) 15 15-37 U/L Alanine Aminotransferase (ALT/SGPT) 14 12-78 U/L Alkaline Phosphatase 122 45-117 U/L Total Creatine Kinase 112 26-192 U/L Troponin I < 0.015 0-0.045 ng/ml Total Protein 6.0 6.4-8.2 gm/dl Albumin 2.2 3.4-5.0 gm/dl Globulin 3.8 2.5-4.0 gm/dl Albumin/Globulin Ratio 0.6 0.9-2 Thyroid Stimulating Hormone (TSH) 1.160 0.300-4.500 uIu/ml Arterial Blood pH 7.51 7.35-7.45 Arterial Blood Partial Pressure CO2 22 35-46 mmHg Arterial Blood Partial Pressure O2 124 80-95 mm/Hg Arterial Blood HCO3 18 19-24 mmol/L Arterial Blood Oxygen Saturation 93.9 90-95 % Arterial Blood Base Excess -5.0 -9-1.8 mEq/L Arterial Blood Gas Delivery P Angel Test ROOM AIR POS Lactic Acid Level 5.9 0.4-2.0 mmol/L Microbiology Results 01/19/17 Blood Culture, Received Pending 01/19/17 Blood Culture, Received Pending
[2017-01-19 22:05] LABS: MANUAL MICROSCOPIC REQUIRED? YES; URINE APPEARANCE CLOUDY (CLEAR); URINE BILIRUBIN NEG (NEG); URINE COLOR YELLOW; URINE NITRITE NEG (NEG); URINE SPECIFIC GRAVITY 1.015 (1.000-1.030); UROBILINOGEN NEG (NEG)
[2017-01-19 22:09] LABS: REVIEW REQ? NO
[2017-01-19 22:11] LABS: HEMATOCRIT 22.1 % (37-47)
[2017-01-19 22:32] LABS: URINE BACTERIA 2+ (NEG); URINE WBC >30 /hpf (0-5); ZZUR CULT IF INDIC CLEAN CATCH YES
[2017-01-20] VITALS (18 sets, daily range): BP systolic 101–133; BP diastolic 63–76; PULSE 78–95; TEMP 35.5–37.2; O2SAT 91–99
[2017-01-20] MEDS: PANTOprazole INJ 40 MG in DEXTROSE 5% 100ML IV SCH ×2 (02:30→09:11)
[2017-01-20] MEDS: PIPERACILL/TAZOBAC IV 3.375 GM in DEXTROSE 5% 100ML IV SCH ×3 (06:28→21:20)
[2017-01-20 06:48] LABS: BASO % 0.3 %; BASO ABS # 0.02 K/uL (0-0.2); COMPLETE YES; HEMATOCRIT 28.6 % (37-47); IG% 0.3 %; LYMPH % 14.6 %; LYMPH ABS # 1.03 K/uL (1.2-3.4); MEAN CELL VOLUME 82.7 fL (80-100); MEAN CORPUSCULAR HEMOGLOBIN 29.8 pg (25-34); MEAN PLATELET VOLUME 10.1 fL (7.4-10.4); NEUT % 79.8 %; PLATELET COUNT 156 K/uL (130-400); RED BLOOD COUNT 3.46 M/uL (4.2-5.4); WHITE BLOOD COUNT 7.04 K/uL (4.8-10.8)
[2017-01-20 07:03] LABS: INR 1.7 (0.9-1.1); PROTHROMBIN TIME (PATIENT) 18.4 SECONDS (9.0-12.0)
[2017-01-20 08:01] LABS: BUN/CREATININE RATIO 13.5 (10-20); CREATININE 1.4 mg/dl (0.60-1.20); POTASSIUM 4.2 mmol/L (3.5-5.1)
[2017-01-20] MEDS: CARVEDILOL 3.125 MG TAB PO SCH ×2 (09:10→21:20)
[2017-01-20] MEDS: FoLIC ACID INJ 1 MG in SYRINGE 9.8 ML IV SCH (09:12)
[2017-01-20] MEDS: THIAMINE HCL INJ 100 MG in SYRINGE 9 ML IV SCH (09:12)
[2017-01-20] MEDS: CYANOCOBALAMIN 1000 MCG/ML VIAL IM SCH (09:13)
--- NOTE | 2017-01-20 11:03 | Pharmacy Progress Note ---
Pharmacy Antibiotic Prog Note Date of Service Jan 20, 2017. Subjective The patient is currently receiving the following antimicrobial agents per Pharmacy consult: -Vancomycin dosed based on random level -Zosyn 3.375 gram IV every 8 hours Objective Height (Feet): 5 Height (Inches): 4.00 Weight (Kilograms): 55.200 Levels: Item Value Date Time Random Vancomycin Level 13.6 mcg/ml 01/20/17 0630 Lab Results (24hrs): Laboratory Tests Test 01/19/17 15:57 01/20/17 06:30 BUN/Creatinine Ratio 12.4 13.5 Blood Urea Nitrogen 22 mg/dl 19 mg/dl Creatinine 1.80 mg/dl 1.40 mg/dl White Blood Count 7.91 K/uL 7.04 K/uL Red Blood Count 2.50 M/uL 3.46 M/uL Hemoglobin 7.4 g/dL 10.3 g/dL Hematocrit 20.5 % 28.6 % Mean Corpuscular Volume 82.0 fL 82.7 fL Mean Corpuscular Hemoglobin 29.6 pg 29.8 pg Mean Corpuscular Hemoglobin Concent 36.1 g/dl 36.0 g/dl Platelet Count 178 K/uL 156 K/uL Mean Platelet Volume 10.2 fL 10.1 fL Neutrophils (%) (Auto) 83.0 % 79.8 % Lymphocytes (%) (Auto) 13.7 % 14.6 % Monocytes (%) (Auto) 2.4 % 2.0 % Eosinophils (%) (Auto) 0.3 % 3.0 % Basophils (%) (Auto) 0.3 % 0.3 % Neutrophils # (Auto) 6.58 K/uL 5.62 K/uL Lymphocytes # (Auto) 1.08 K/uL 1.03 K/uL Monocytes # (Auto) 0.19 K/uL 0.14 K/uL Eosinophils # (Auto) 0.02 K/uL 0.21 K/uL Basophils # (Auto) 0.02 K/uL 0.02 K/uL Micro Results: Item Value Date Time Urine Culture - Final Complete 01/14/17 2230 Urine,Catheterized Citlali Albicans MRSA DNA Surveillance Screen - Final Complete 01/15/17 0355 Nasal Specimen Negative for MRSA by DNA Probe Blood Culture - Preliminary Resulted 01/15/17 1754 Blood NO GROWTH TO DATE. Blood Culture - Preliminary Resulted 01/15/17 1805 Blood NO GROWTH TO DATE. Urine Culture Received 01/19/17 0000 Urine , Clean Catch Pending Blood Culture Received 01/19/17 1557 Blood Pending Blood Culture Received 01/19/17 1600 Blood Pending Assessment & Plan Assessment 76 year old female with recent hospital admission to [place] for sepsis/JAJA. She was discharged to a halfway for [facility] on 01/14 and presented to our ER on 01/15 with dehydration and JAJA. She was started on empiric Vancomycin and Zosyn IV on 01/19 due to elevated lactic acid and hypothermia, r/o sepsis. Repeat urine and BC ordered. Lactic acid improved today. Day # 2 of antimicrobial therapy Plan Vancomycin IV * Random level was ordered this morning following a dose of 1000 mg on 01/19 @ 2100. Random level of 13.6 mcg/mL indicates that patient is ready to be re- dosed. Scr improving; 1.5 -> 1.8 -> 1.4 mg/dL. Scr previously 1.2 mg/dL this stay. * Initiate 900 mg (16 mg/kg) IV every 24 hours * Goal trough level for sepsis : 15 to 20 mcg/mL * Of note, antibiotics were ordered with empiric indication and will discontinue on 01/21 @ 1659, unless continued by provider * Level will be ordered if Vancomycin is continued beyond 48 hours. Piperacillin/tazobactam * Continue 3.375 g IV extended infusion every 8 hours for CrCl greater than 20 mL/min Pharmacy will continue to follow and will adjust dose/frequency as necessary. Thank you
--- NOTE | 2017-01-20 11:05 | Surgery Consultation ---
Consultation Date of Consultation: Jan 20, 2017. Attending Physician: Mickey Beltrán MD Reason for Consultation: Mild Colonic Ileus History of Present Illness Chikis is a 76 year-old female who presented [facility] hospital from [facility] with generalized weakness, dehydration and poor oral intake. She was recently at [facility] for Sepsis, JAJA and was discharged to residential for rehabilitation. She was found to have altered mental status and lethargy in the [facility] with decreased urine output and was taken to hospital. Patient was found to be severely dehydrated, hypernatremic, and had a positive UTI. She had some vomiting and possible coffee ground emesis yesterday with abdominal pain. CT scan of abdomen and pelvis showed mild colonic ileus however no obstruction. A lactic acid level was 5.9 yesterday and then repeat was 2.2 and this morning 0.7. Our services consulted for colonic ileus. Chikis is arousable and answers to questions however she is not oriented. Believes she is in [facility]. Denies of any chest pain, shortness of breathing, abdominal pain, nausea or vomiting. unable to obtain history from patient as she was falling in and out of sleep. Past Medical/Surgical History Medical Problems: (1) Dehydration Status: Acute (2) Hypernatremia Status: Acute (3) Lethargic Status: Acute (4) Renal insufficiency Status: Acute (5) UTI (urinary tract infection) Status: Acute Family History Patient reports no known family medical history. Social History Smoking Status: Unknown if Ever Smoked Drug Use: none Housing Status: [facility] Occupation Status: retired Allergies Coded Allergies: No Known Allergies (Unverified , 01/14/17) Home Medications Scheduled Carvedilol (Coreg), 3.125 MG PO BID Ferrous Sulfate (Ferrous Sulfate), 325 MG PO DAILY Melatonin (Melatonin), 3 MG PO HS Pantoprazole (Protonix), 40 MG PO DAILY Potassium Chloride Microencaps (Potassium Chloride Er), 20 MEQ PO DAILY Senna (Senokot), 17.2 MG PO DAILY Scheduled PRN Acetaminophen Tab (Tylenol), 650 MG PO Q4H PRN for Pain Bisacodyl (Dulcolax), 1 SUPP HI UD PRN for Constipation Diphenhydramine Citrate-Aspiri (Vijaya Pm), 1 TAB PO Q6H PRN for Itching Magnesium Hydroxide (Milk Of Magnesia), 30 ML PO UD PRN for Constipation Ondansetron Hcl (Zofran), 4 MG PO Q6H PRN for Nausea Oxycodone Hcl (Oxycodone Hcl), 10 MG PO Q8 PRN for Severe Pain Sodium Phosphate/Biphosphate (Fleet Enema), 1 EA HI UD PRN for Constipation Tramadol (Ultram), 50 MG PO Q8H PRN for Moderate Pain Current Inpatient Medications Current Inpatient Medications Medications (Trade) Dose Ordered Sig/Donald Route Start Time Stop Time Status Last Admin Dose Admin Acetaminophen (Tylenol Tab) 650 mg Q4H PRN PO 01/15/17 03:15 02/14/17 03:14 Future Hold Al Hydrox/Mg Hydrox/Simethicone (Maalox Max Susp) 15 ml Q4H PRN PO 01/15/17 03:15 02/14/17 03:14 Future Hold Magnesium Hydroxide (Milk Of Magnesia Susp) 30 ml Q12H PRN PO 01/15/17 03:15 02/14/17 03:14 Future Hold Ondansetron HCl (Zofran Inj) 4 mg Q6H PRN IV 01/15/17 03:15 02/14/17 03:14 01/19/17 10:23 4 MG Nitroglycerin (Nitrostat Tab) 0.4 mg UD PRN SL 01/15/17 03:15 02/14/17 03:14 Polyethylene (Miralax Powder Packet) 17 gm DAILY PRN PO 01/15/17 03:15 02/14/17 03:14 Carvedilol (Coreg Tab) 3.125 mg BID PO 01/15/17 09:00 02/14/17 08:59 01/20/17 09:10 3.125 MG Ferrous Sulfate (Feosol Tab) 325 mg DAILY PO 01/15/17 09:00 02/14/17 08:59 Future Hold 01/15/17 07:37 325 MG Ondansetron HCl (Zofran Tab) 4 mg Q6H PRN PO 01/15/17 03:15 02/14/17 03:14 Future Hold Pantoprazole Sodium (Protonix Tab) 40 mg DAILY PO 01/15/17 09:00 02/14/17 08:59 Future Hold 01/15/17 07:37 40 MG Senna (Senokot Tab) 17.2 mg DAILY PO 01/15/17 09:00 02/14/17 08:59 Future Hold 01/15/17 07:37 17.2 MG Tramadol HCl (Ultram Tab) 50 mg Q8H PRN PO 01/15/17 03:15 02/14/17 03:14 Future Hold Miscellaneous Information (Order Awaiting Action) 1 ea QS N/A 01/15/17 08:00 02/14/17 07:59 Oxycodone HCl 10 mg 10 mg Q8 PRN PO 01/15/17 03:15 02/14/17 03:14 Future Hold Pantoprazole Sodium/Dextrose (Protonix Inj/D5 100ml) 100 ml @ 20 mls/hr Q5H IV 01/19/17 11:30 02/18/17 11:29 01/20/17 09:11 20 MLS/HR Piperacillin Sod/ Tazobactam Sod 1 ea 1 ea UD PRN N/A 01/19/17 16:30 02/18/17 16:29 Piperacillin Sod/ Tazobactam Sod 3.375 gm/Dextrose 115 ml @ 28.75 mls/ hr Q8H IV 01/20/17 00:00 01/21/17 16:59 01/20/17 06:28 28.75 MLS/HR Folic Acid/Syringe (Folvite Inj/ Syringe) 10 ml @ 5 mls/min DAILY IV 01/19/17 18:00 02/18/17 17:59 01/20/17 09:12 5 MLS/MIN Cyanocobalamin 1000 mcg 1,000 mcg DAILY IM 01/19/17 18:00 02/18/17 17:59 01/20/17 09:13 1,000 MCG Thiamine HCl 100 mg/Syringe 10 ml @ 2 mls/min DAILY IV 01/19/17 18:00 02/18/17 17:59 01/20/17 09:12 2 MLS/MIN Sodium Bicarbonate/ Sodium Chloride (Sodium Bicarbonate 8.4% Inj/1/2 Nss 1000ml) 1,075 ml @ 100 mls/hr [id number] IV 01/19/17 18:30 02/18/17 17:29 01/19/17 18:44 100 MLS/HR Vancomycin HCl 1 ea 1 ea UD PRN N/A 01/19/17 18:45 02/18/17 18:44 Vancomycin HCl/ Sodium Chloride (Vancomycin Inj/ Nss 250ml) 268 ml @ 125 mls/hr Q24H IV 01/20/17 11:00 01/21/17 16:59 Review of Systems unobtainable patient only responded to a few questions, unreliable history Physical Exam Date Time Temp Pulse Resp B/P Pulse Ox O2 Delivery O2 Flow Rate FiO2 01/20/17 08:00 Room Air 01/20/17 07:41 35.5 81 18 133/76 99 Room Air 01/20/17 05:30 36.6 78 16 119/75 01/20/17 04:41 36.5 79 18 114/75 96 Room Air 01/20/17 04:30 36.4 81 18 118/75 01/20/17 04:00 Room Air 01/20/17 04:00 36.5 82 16 102/66 01/20/17 03:30 36.4 85 102/66 01/20/17 03:15 36.5 82 16 101/64 01/20/17 02:55 36.4 82 16 116/74 01/20/17 02:10 36.6 88 18 119/75 01/20/17 01:10 36.5 89 18 110/69 01/20/17 00:41 36.6 95 16 109/67 91 01/20/17 00:10 36.6 90 18 110/72 93 01/20/17 00:01 Room Air 01/19/17 23:55 36.6 93 16 109/71 93 01/19/17 23:40 36.6 87 16 108/71 01/19/17 23:38 36.6 87 16 108/71 01/19/17 23:26 36.4 86 16 119/71 91 Room Air 01/19/17 21:06 87 111/80 01/19/17 20:00 Room Air 01/19/17 20:00 36.0 91 14 122/81 99 Room Air 01/19/17 16:00 Room Air 01/19/17 15:06 35.5 88 16 139/74 100 Room Air 01/19/17 14:52 35.2 01/19/17 12:00 Room Air 01/19/17 11:37 35.7 78 16 108/72 100 Room Air General Appearance: no apparent distress, + thin Head: normocephalic, atraumatic Respiratory/Chest: normal breath sounds, no respiratory distress, no accessory muscle use Cardiovascular: regular rate, rhythm, no murmur Abdomen/GI: non tender, soft, no organomegaly, no pulsatile mass Extremities/Musculoskelatal: no calf tenderness, no pedal edema Neurologic/Psych: + disoriented, + pertinent finding (sleeping on encounter, alert when aroused but not oriented) Skin: normal color, warm/dry, no rash Laboratory Results Last 24 Hours Test 01/19/17 14:31 01/19/17 15:19 01/19/17 15:57 01/19/17 16:05 Hemoglobin 7.8 g/dL 7.4 g/dL Hematocrit 21.1 % 20.5 % Vitamin B12 Level 230 pg/mL Folate 1.80 ng/mL Lyme Disease IgG Antibody NEG White Blood Count 7.91 K/uL Red Blood Count 2.50 M/uL Mean Corpuscular Volume 82.0 fL Mean Corpuscular Hemoglobin 29.6 pg Mean Corpuscular Hemoglobin Concent 36.1 g/dl Platelet Count 178 K/uL Mean Platelet Volume 10.2 fL Neutrophils (%) (Auto) 83.0 % Lymphocytes (%) (Auto) 13.7 % Monocytes (%) (Auto) 2.4 % Eosinophils (%) (Auto) 0.3 % Basophils (%) (Auto) 0.3 % Neutrophils # (Auto) 6.58 K/uL Lymphocytes # (Auto) 1.08 K/uL Monocytes # (Auto) 0.19 K/uL Eosinophils # (Auto) 0.02 K/uL Basophils # (Auto) 0.02 K/uL RDW Standard Deviation 38.3 fL RDW Coefficient of Variation 12.8 % Immature Granulocyte % (Auto) 0.3 % Immature Granulocyte # (Auto) 0.02 K/uL Nucleated RBC Absolute Count (auto) 0.07 K/uL Nucleated Red Blood Cells % 0.8 % Giant Platelets 1+ Echinocytes 1+ Sodium Level 133 mmol/L Potassium Level 4.9 mmol/L Chloride Level 100 mmol/L Carbon Dioxide Level 20 mmol/L Anion Gap 13.0 mmol/L Blood Urea Nitrogen 22 mg/dl Creatinine 1.80 mg/dl Est Creatinine Clear Calc Drug Dose 23.5 ml/min Estimated GFR () 31.6 Estimated GFR (Non- 27.2 BUN/Creatinine Ratio 12.4 Random Glucose 213 mg/dl Calcium Level 7.9 mg/dl Phosphorus Level 2.9 mg/dl Magnesium Level 1.7 mg/dl Total Bilirubin 0.6 mg/dl Aspartate Amino Transf (AST/SGOT) 15 U/L Alanine Aminotransferase (ALT/SGPT) 14 U/L Alkaline Phosphatase 122 U/L Total Creatine Kinase 112 U/L Troponin I < 0.015 ng/ml Total Protein 6.0 gm/dl Albumin 2.2 gm/dl Globulin 3.8 gm/dl Albumin/Globulin Ratio 0.6 Thyroid Stimulating Hormone (TSH) 1.160 uIu/ml Arterial Blood pH 7.51 Arterial Blood Partial Pressure CO2 22 mmHg Arterial Blood Partial Pressure O2 124 mm/Hg Arterial Blood HCO3 18 mmol/L Arterial Blood Oxygen Saturation 93.9 % Arterial Blood Base Excess -5.0 mEq/L Arterial Blood Gas Delivery P Angel Test ROOM AIR Lactic Acid Level 5.9 mmol/L Test 01/19/17 17:09 01/19/17 22:00 01/20/17 06:30 Hemoglobin 7.9 g/dL 10.3 g/dL Hematocrit 22.1 % 28.6 % Lactic Acid Level 2.2 mmol/L 0.7 mmol/L White Blood Count 7.04 K/uL Red Blood Count 3.46 M/uL Mean Corpuscular Volume 82.7 fL Mean Corpuscular Hemoglobin 29.8 pg Mean Corpuscular Hemoglobin Concent 36.0 g/dl Platelet Count 156 K/uL Mean Platelet Volume 10.1 fL Neutrophils (%) (Auto) 79.8 % Lymphocytes (%) (Auto) 14.6 % Monocytes (%) (Auto) 2.0 % Eosinophils (%) (Auto) 3.0 % Basophils (%) (Auto) 0.3 % Neutrophils # (Auto) 5.62 K/uL Lymphocytes # (Auto) 1.03 K/uL Monocytes # (Auto) 0.14 K/uL Eosinophils # (Auto) 0.21 K/uL Basophils # (Auto) 0.02 K/uL RDW Standard Deviation 39.1 fL RDW Coefficient of Variation 13.0 % Immature Granulocyte % (Auto) 0.3 % Immature Granulocyte # (Auto) 0.02 K/uL Prothrombin Time 18.4 SECONDS Prothromb Time International Ratio 1.7 Sodium Level 143 mmol/L Potassium Level 4.2 mmol/L Chloride Level 111 mmol/L Carbon Dioxide Level 25 mmol/L Anion Gap 7.0 mmol/L Blood Urea Nitrogen 19 mg/dl Creatinine 1.40 mg/dl Est Creatinine Clear Calc Drug Dose 30.4 ml/min Estimated GFR () 42.8 Estimated GFR (Non- 36.9 BUN/Creatinine Ratio 13.5 Random Glucose 83 mg/dl Calcium Level 8.0 mg/dl Random Vancomycin Level 13.6 mcg/ml Assessment & Plan Mild Colonic Ileus - Lactic acid 5.9 yesterday now normalized to 0.7 - abdominal examination soft, nontender, no rigidity or guarding - Vital signs stable Altered Mental status UTI Sepsis Plan: No surgical intervention required at this time. Abdomen soft and benign Would continue IV antibiotics and further management per hospitalist service will continue to follow Dr. Calderón has seen and examined patient, agrees with assessment and plan.
[2017-01-20] MEDS: VANCOMYCIN INJ 900 MG in SODIUM CHLORIDE 0.9% 250ML 250 ML IV SCH (11:29)
[2017-01-20] MEDS: SODIUM BICARBONATE 8.4% INJ 75 MEQ in SODIUM CHLORIDE 0.45% 1000ML 1,000 ML IV SCH ×2 (12:43→22:12)
--- NOTE | 2017-01-20 15:22 | Neurology Progress Notes ---
Neurology Progress Note Date of Service Jan 20, 2017. Michi Diop is a 76 year old female with worsening baseline MS, recent prolonged [facility] admission for JAJA and sepsis, 01/03-01/13. She has had failure to thrive past 4-6 wks, R hip fracture after a fall s/p R IM nailing earlier this year. she has had worsening MS w/ lethargy, She had been living at home with family nearby earlier this year, had significant N/V and difficulty taking po reliably leading to weakness and recurrent falls. On admission to [facility] her sodium was 151, K 3.2, creatinine 1.7. Urine was contaminated but did have granular casts and other evidence of inflammation v infection. according to DC notes she had not had any oral intake since arriving at the nursing facility and had continued confusion which worsened after arrival. on arrival she had severe dehydration and JAJA. Currently she is awake and alert answering questions and cooperative with exam. denies CP, SOB, abdominal pain, weakness, numbness tingling, N, V, swallowing difficulty, vision changes. Objective Date Time Temp Pulse Resp B/P Pulse Ox O2 Delivery O2 Flow Rate FiO2 01/20/17 12:00 Room Air 01/20/17 11:17 35.8 82 18 108/67 98 Room Air 01/20/17 08:00 Room Air 01/20/17 07:41 35.5 81 18 133/76 99 Room Air 01/20/17 05:30 36.6 78 16 119/75 01/20/17 04:41 36.5 79 18 114/75 96 Room Air 01/20/17 04:30 36.4 81 18 118/75 01/20/17 04:00 Room Air 01/20/17 04:00 36.5 82 16 102/66 01/20/17 03:30 36.4 85 102/66 01/20/17 03:15 36.5 82 16 101/64 01/20/17 02:55 36.4 82 16 116/74 01/20/17 02:10 36.6 88 18 119/75 01/20/17 01:10 36.5 89 18 110/69 01/20/17 00:41 36.6 95 16 109/67 91 01/20/17 00:10 36.6 90 18 110/72 93 01/20/17 00:01 Room Air 01/19/17 23:55 36.6 93 16 109/71 93 01/19/17 23:40 36.6 87 16 108/71 01/19/17 23:38 36.6 87 16 108/71 01/19/17 23:26 36.4 86 16 119/71 91 Room Air 01/19/17 21:06 87 111/80 01/19/17 20:00 Room Air 01/19/17 20:00 36.0 91 14 122/81 99 Room Air 01/19/17 16:00 Room Air 01/19/17 15:06 35.5 88 16 139/74 100 Room Air Last 24 Hours Test 01/19/17 15:19 01/19/17 15:57 01/19/17 16:05 01/19/17 17:09 Vitamin B12 Level 230 pg/mL Folate 1.80 ng/mL Lyme Disease IgG Antibody NEG White Blood Count 7.91 K/uL Red Blood Count 2.50 M/uL Hemoglobin 7.4 g/dL Hematocrit 20.5 % Mean Corpuscular Volume 82.0 fL Mean Corpuscular Hemoglobin 29.6 pg Mean Corpuscular Hemoglobin Concent 36.1 g/dl Platelet Count 178 K/uL Mean Platelet Volume 10.2 fL Neutrophils (%) (Auto) 83.0 % Lymphocytes (%) (Auto) 13.7 % Monocytes (%) (Auto) 2.4 % Eosinophils (%) (Auto) 0.3 % Basophils (%) (Auto) 0.3 % Neutrophils # (Auto) 6.58 K/uL Lymphocytes # (Auto) 1.08 K/uL Monocytes # (Auto) 0.19 K/uL Eosinophils # (Auto) 0.02 K/uL Basophils # (Auto) 0.02 K/uL RDW Standard Deviation 38.3 fL RDW Coefficient of Variation 12.8 % Immature Granulocyte % (Auto) 0.3 % Immature Granulocyte # (Auto) 0.02 K/uL Nucleated RBC Absolute Count (auto) 0.07 K/uL Nucleated Red Blood Cells % 0.8 % Giant Platelets 1+ Echinocytes 1+ Sodium Level 133 mmol/L Potassium Level 4.9 mmol/L Chloride Level 100 mmol/L Carbon Dioxide Level 20 mmol/L Anion Gap 13.0 mmol/L Blood Urea Nitrogen 22 mg/dl Creatinine 1.80 mg/dl Est Creatinine Clear Calc Drug Dose 23.5 ml/min Estimated GFR () 31.6 Estimated GFR (Non- 27.2 BUN/Creatinine Ratio 12.4 Random Glucose 213 mg/dl Calcium Level 7.9 mg/dl Phosphorus Level 2.9 mg/dl Magnesium Level 1.7 mg/dl Total Bilirubin 0.6 mg/dl Aspartate Amino Transf (AST/SGOT) 15 U/L Alanine Aminotransferase (ALT/SGPT) 14 U/L Alkaline Phosphatase 122 U/L Total Creatine Kinase 112 U/L Troponin I < 0.015 ng/ml Total Protein 6.0 gm/dl Albumin 2.2 gm/dl Globulin 3.8 gm/dl Albumin/Globulin Ratio 0.6 Thyroid Stimulating Hormone (TSH) 1.160 uIu/ml Arterial Blood pH 7.51 Arterial Blood Partial Pressure CO2 22 mmHg Arterial Blood Partial Pressure O2 124 mm/Hg Arterial Blood HCO3 18 mmol/L Arterial Blood Oxygen Saturation 93.9 % Arterial Blood Base Excess -5.0 mEq/L Arterial Blood Gas Delivery P Angel Test ROOM AIR Lactic Acid Level 5.9 mmol/L Test 01/19/17 22:00 01/20/17 06:30 01/20/17 12:17 Hemoglobin 7.9 g/dL 10.3 g/dL Hematocrit 22.1 % 28.6 % Lactic Acid Level 2.2 mmol/L 0.7 mmol/L 1.1 mmol/L White Blood Count 7.04 K/uL Red Blood Count 3.46 M/uL Mean Corpuscular Volume 82.7 fL Mean Corpuscular Hemoglobin 29.8 pg Mean Corpuscular Hemoglobin Concent 36.0 g/dl Platelet Count 156 K/uL Mean Platelet Volume 10.1 fL Neutrophils (%) (Auto) 79.8 % Lymphocytes (%) (Auto) 14.6 % Monocytes (%) (Auto) 2.0 % Eosinophils (%) (Auto) 3.0 % Basophils (%) (Auto) 0.3 % Neutrophils # (Auto) 5.62 K/uL Lymphocytes # (Auto) 1.03 K/uL Monocytes # (Auto) 0.14 K/uL Eosinophils # (Auto) 0.21 K/uL Basophils # (Auto) 0.02 K/uL RDW Standard Deviation 39.1 fL RDW Coefficient of Variation 13.0 % Immature Granulocyte % (Auto) 0.3 % Immature Granulocyte # (Auto) 0.02 K/uL Prothrombin Time 18.4 SECONDS Prothromb Time International Ratio 1.7 Sodium Level 143 mmol/L Potassium Level 4.2 mmol/L Chloride Level 111 mmol/L Carbon Dioxide Level 25 mmol/L Anion Gap 7.0 mmol/L Blood Urea Nitrogen 19 mg/dl Creatinine 1.40 mg/dl Est Creatinine Clear Calc Drug Dose 30.4 ml/min Estimated GFR () 42.8 Estimated GFR (Non- 36.9 BUN/Creatinine Ratio 13.5 Random Glucose 83 mg/dl Calcium Level 8.0 mg/dl Random Vancomycin Level 13.6 mcg/ml Imaging: CT C/A/P- . Gallstone filled gallbladder. Mild nonobstructive colonic ileus. Otherwise negative study Incidental note is made of a small left pleural effusion. Exam: Physical Exam: Constitutional: appearance weak frail Ears, Nose, Mouth and Throat: mucous membranes moist, no injection and skin normal, eyes normal Cardiovascular: normal S-1 and S-2 and regular rate and rhythm Respiratory: clear to auscultation (CTA) and no rales, rhonchi or wheeze Musculoskeletal: no peripheral edema and good distal pulses Skin: no stigmata of neurocutaneous disease noted and normal and intact Eyes: extraocular muscles intact (EOMI) and pupils equal, round and reactive to light (PERRL), left medical diplopia NEUROLOGIC EXAMINATION: Mental status: Alert and interactive Oriented location she thinks she is in [facility] but does know the year 2017 Oriented to person Speech fluent with no evidence of aphasia Cranial Nerves smile eye brow raise symmetric, tongue midline Reflexes: Deep tendon reflexes were symmetrical and graded 2/5. Plantar responses were flexor. Sensory: to light touch Gait/Stance: Posture lying in bed awake alert Strength: hand die tripper biceps triceps 5/5 bilaterally, hip flex against gravity Current Inpatient Medications Medications (Trade) Dose Ordered Sig/Donald Route Start Time Stop Time Status Last Admin Dose Admin Acetaminophen (Tylenol Tab) 650 mg Q4H PRN PO 01/15/17 03:15 02/14/17 03:14 Future Hold Al Hydrox/Mg Hydrox/Simethicone (Maalox Max Susp) 15 ml Q4H PRN PO 01/15/17 03:15 02/14/17 03:14 Future Hold Magnesium Hydroxide (Milk Of Magnesia Susp) 30 ml Q12H PRN PO 01/15/17 03:15 02/14/17 03:14 Future Hold Ondansetron HCl (Zofran Inj) 4 mg Q6H PRN IV 01/15/17 03:15 02/14/17 03:14 01/19/17 10:23 4 MG Nitroglycerin (Nitrostat Tab) 0.4 mg UD PRN SL 01/15/17 03:15 02/14/17 03:14 Polyethylene (Miralax Powder Packet) 17 gm DAILY PRN PO 01/15/17 03:15 02/14/17 03:14 Carvedilol (Coreg Tab) 3.125 mg BID PO 01/15/17 09:00 02/14/17 08:59 01/20/17 09:10 3.125 MG Ferrous Sulfate (Feosol Tab) 325 mg DAILY PO 01/15/17 09:00 02/14/17 08:59 Future Hold 01/15/17 07:37 325 MG Ondansetron HCl (Zofran Tab) 4 mg Q6H PRN PO 01/15/17 03:15 02/14/17 03:14 Future Hold Pantoprazole Sodium (Protonix Tab) 40 mg DAILY PO 01/15/17 09:00 02/14/17 08:59 Future Hold 01/15/17 07:37 40 MG Senna (Senokot Tab) 17.2 mg DAILY PO 01/15/17 09:00 02/14/17 08:59 Future Hold 01/15/17 07:37 17.2 MG Tramadol HCl (Ultram Tab) 50 mg Q8H PRN PO 01/15/17 03:15 02/14/17 03:14 Future Hold Miscellaneous Information (Order Awaiting Action) 1 ea QS N/A 01/15/17 08:00 02/14/17 07:59 Oxycodone HCl (Roxicodone Immediate Rel Tab) 10 mg Q8 PRN PO 01/15/17 03:15 02/14/17 03:14 Future Hold Piperacillin Sod/ Tazobactam Sod 1 ea 1 ea UD PRN N/A 01/19/17 16:30 02/18/17 16:29 Piperacillin Sod/ Tazobactam Sod 3.375 gm/Dextrose 115 ml @ 28.75 mls/ hr Q8H IV 01/20/17 00:00 01/21/17 16:59 01/20/17 14:19 28.75 MLS/HR Folic Acid/Syringe (Folvite Inj/ Syringe) 10 ml @ 5 mls/min DAILY IV 01/19/17 18:00 02/18/17 17:59 01/20/17 09:12 5 MLS/MIN Cyanocobalamin 1000 mcg 1,000 mcg DAILY IM 01/19/17 18:00 02/18/17 17:59 01/20/17 09:13 1,000 MCG Thiamine HCl 100 mg/Syringe 10 ml @ 2 mls/min DAILY IV 01/19/17 18:00 02/18/17 17:59 01/20/17 09:12 2 MLS/MIN Sodium Bicarbonate/ Sodium Chloride (Sodium Bicarbonate 8.4% Inj/1/2 Nss 1000ml) 1,075 ml @ 100 mls/hr [id number] IV 01/19/17 18:30 02/18/17 17:29 01/20/17 12:43 100 MLS/HR Vancomycin HCl 1 ea 1 ea UD PRN N/A 01/19/17 18:45 02/18/17 18:44 Vancomycin HCl/ Sodium Chloride (Vancomycin Inj/ Nss 250ml) 268 ml @ 125 mls/hr Q24H IV 01/20/17 11:00 01/21/17 16:59 01/20/17 11:29 125 MLS/HR Vitamin B Complex (Vitamin B Complex) 1 tab QAM PO 01/21/17 09:00 02/20/17 08:59 Multivitamins Therapeutic 15 ml 15 ml QAM PO 01/21/17 09:00 02/20/17 08:59 Pantoprazole Sodium/Syringe (Protonix Inj/ Syringe) 10 ml @ 5 mls/min DAILY@11 IV 01/21/17 11:00 02/20/17 10:59 Impression 76 year old with progressive dementia and acute MS change hx sepsis and JAJA, dehydration Plan 1. family input would be helpful to know what her baseline mentation and discuss expectations 2. labs -b12, folate, Lyme, RPR, TSH -already done 3. MRI brain with and without may be helpful if not recently done in one of her other admissions 4. received pRbc x 2 U last night and has been receiving antibiotics, and thiamine added 5. may be back to baseline 6. PT/OT/speech for discharge needs 7. GI for coffee ground emesis this am 8. would continue to correct reversible causes MS is improving 9. will sign off for now. if MS changes again will be available for any questions concerns. I have seen and discussed above patient with Dr Mary Chauhan, neurology .Pt sleepy but arousable, oriented to person and hospital. Marked improvement of delirium (superimposed on dementia) with appropriate medical care. Will sign off. Please reconsult if there are future concerns. GIOVANNI Chauhan MD
--- NOTE | 2017-01-20 18:38 | Progress Note ---
Internal Med Progress Note Date of Service: Jan 20, 2017. Provider Documentation: SUBJECTIVE: patient is more alert and awake today talking few words denies pain says she is fine afebrile 'ate some today OBJECTIVE: Vital Signs-as noted below Exam: General-alert and awake. Neck-no neck masses Lungs-cta b/l no added sounds Heart-s1 and s2 heard no murmurs Abdomen-soft bowel sounds no distension non tender Extremities-no edema no erythema Neuro-alert and awake moves extremities Lab data as noted below. ASSESSMENT & PLAN: Metabolic Encephalopathy No h/o Dementia.condition has been getting worse for the last few weeks as per the daughters but was stable 4 weeks ago Hypernatremia-improved mental status still same 'repeat ct head unremarkable folate levels low, vitamin b12 borderline and thiamine levels pending will replace vitamins consulted neurology and appreciate inputs mental status slowly improving ACUTE KIDNEY INJURY Secondary to DEHYDRATION due to poor oral intake on fluids Elevated lactic acid hypothermia sepsis? could be from hyperventilation deconditioned patient empirically started on iv vanco and Zosyn on fluids f/u cx ct abd/pelvis mild colonic ileus Hemoccult negative ischemic bowel-unlikely as abdomen seems benign and Hemoccult negative no cholecystitis on ct scan or US lactic acid normalized appreciate surgical inputs Anemia acute on chronic? folate deficiency hb 7.4 today Hemoccult negative question of coffee ground emesis on ppi drip will transfuse 2 units prbc hb improved to 10.0 seems second vomtus was yellowish color will stop ppi drip HYPERNATREMIA: improved with fluids 'appreciate nephrology inputs Electrolytes Imbalance replaced will f/u labs Dysphagia with Vomiting Difficulty in swallowing for a while Has vomiting associated with it Barium swallow in [facility]-unremarkable GI holding on EGD until mental status improves on mechanical soft diet MILD ELEVATION OF TROPONIN : normalized POSSIBLE UTI : UA grossly positive was on Rocephin cx unremarkable abx stopped currently on above abx and will f/u repeat cx Code status DNR d/W daughter and patient is DNR Dvt px scds for possible gi bleed Disposition To be determined Family notified patient condition Vital Signs: Date Time Temp Pulse Resp B/P Pulse Ox O2 Delivery O2 Flow Rate FiO2 01/20/17 16:28 95 Room Air 01/20/17 16:14 36.4 78 20 111/65 95 Room Air 01/20/17 12:00 Room Air 01/20/17 11:17 35.8 82 18 108/67 98 Room Air 01/20/17 08:00 Room Air 01/20/17 07:41 35.5 81 18 133/76 99 Room Air 01/20/17 05:30 36.6 78 16 119/75 01/20/17 04:41 36.5 79 18 114/75 96 Room Air 01/20/17 04:30 36.4 81 18 118/75 01/20/17 04:00 Room Air 01/20/17 04:00 36.5 82 16 102/66 01/20/17 03:30 36.4 85 102/66 01/20/17 03:15 36.5 82 16 101/64 01/20/17 02:55 36.4 82 16 116/74 01/20/17 02:10 36.6 88 18 119/75 01/20/17 01:10 36.5 89 18 110/69 01/20/17 00:41 36.6 95 16 109/67 91 01/20/17 00:10 36.6 90 18 110/72 93 01/20/17 00:01 Room Air 01/19/17 23:55 36.6 93 16 109/71 93 01/19/17 23:40 36.6 87 16 108/71 01/19/17 23:38 36.6 87 16 108/71 01/19/17 23:26 36.4 86 16 119/71 91 Room Air 01/19/17 21:06 87 111/80 01/19/17 20:00 Room Air 01/19/17 20:00 36.0 91 14 122/81 99 Room Air Lab Results: Results Past 24 Hours Test 01/19/17 22:00 01/20/17 06:30 01/20/17 12:17 01/20/17 16:15 Range/Units Hemoglobin 7.9 10.3 12.0-16.0 g/dL Hematocrit 22.1 28.6 37-47 % Lactic Acid Level 2.2 0.7 1.1 1.2 0.4-2.0 mmol/L White Blood Count 7.04 4.8-10.8 K/uL Red Blood Count 3.46 4.2-5.4 M/uL Mean Corpuscular Volume 82.7 80-100 fL Mean Corpuscular Hemoglobin 29.8 25-34 pg Mean Corpuscular Hemoglobin Concent 36.0 32-36 g/dl Platelet Count 156 130-400 K/uL Mean Platelet Volume 10.1 7.4-10.4 fL Neutrophils (%) (Auto) 79.8 % Lymphocytes (%) (Auto) 14.6 % Monocytes (%) (Auto) 2.0 % Eosinophils (%) (Auto) 3.0 % Basophils (%) (Auto) 0.3 % Neutrophils # (Auto) 5.62 1.4-6.5 K/uL Lymphocytes # (Auto) 1.03 1.2-3.4 K/uL Monocytes # (Auto) 0.14 0.11-0.59 K/uL Eosinophils # (Auto) 0.21 0-0.5 K/uL Basophils # (Auto) 0.02 0-0.2 K/uL RDW Standard Deviation 39.1 36.4-46.3 fL RDW Coefficient of Variation 13.0 11.5-14.5 % Immature Granulocyte % (Auto) 0.3 % Immature Granulocyte # (Auto) 0.02 0.00-0.02 K/uL Prothrombin Time 18.4 9.0-12.0 SECONDS Prothromb Time International Ratio 1.7 0.9-1.1 Sodium Level 143 136-145 mmol/L Potassium Level 4.2 3.5-5.1 mmol/L Chloride Level 111 98-107 mmol/L Carbon Dioxide Level 25 21-32 mmol/L Anion Gap 7.0 3-11 mmol/L Blood Urea Nitrogen 19 7-18 mg/dl Creatinine 1.40 0.60-1.20 mg/dl Est Creatinine Clear Calc Drug Dose 30.4 ml/min Estimated GFR () 42.8 Estimated GFR (Non- 36.9 BUN/Creatinine Ratio 13.5 10-20 Random Glucose 83 70-99 mg/dl Calcium Level 8.0 8.5-10.1 mg/dl Random Vancomycin Level 13.6 mcg/ml
[2017-01-20] MEDS: HEPARIN SOD 5000 UNIT/0.5 ML CARP SQ SCH (21:23)
[2017-01-21] VITALS (8 sets, daily range): BP systolic 103–117; BP diastolic 58–67; PULSE 72–84; TEMP 36.3–37.1; O2SAT 93–96
[2017-01-21 01:10] LABS: RAPID PLASMA REAGIN NONREACTIVE (NONREACT)
[2017-01-21] MEDS: PIPERACILL/TAZOBAC IV 3.375 GM in DEXTROSE 5% 100ML IV SCH ×2 (05:32→14:05)
[2017-01-21] MEDS: HEPARIN SOD 5000 UNIT/0.5 ML CARP SQ SCH ×3 (05:33→21:09)
[2017-01-21 06:48] LABS: BUN/CREATININE RATIO 9.3 (10-20); CALCIUM 7.4 mg/dl (8.5-10.1); CREATININE 1.6 mg/dl (0.60-1.20); POTASSIUM 3.4 mmol/L (3.5-5.1)
[2017-01-21] MEDS: THIAMINE HCL INJ 100 MG in SYRINGE 9 ML IV SCH (08:50)
[2017-01-21] MEDS: FoLIC ACID INJ 1 MG in SYRINGE 9.8 ML IV SCH (08:50)
[2017-01-21] MEDS: MULTIVITAMINS W/MINERALS 15ML UDP PO SCH (08:59)
[2017-01-21] MEDS: CYANOCOBALAMIN 1000 MCG/ML VIAL IM SCH (08:59)
[2017-01-21] MEDS: VITAMIN B COMPLEX TAB PO SCH (09:02)
[2017-01-21] MEDS: CARVEDILOL 3.125 MG TAB PO SCH ×2 (09:02→21:07)
--- NOTE | 2017-01-21 09:06 | Nephrology Progress Note ---
Nephrology Progress Note Date of Service: Jan 21, 2017. Subjective 76 yo female with poor po intake, needs assitance with eating but not eating well. pt knows her name and that she is in the hospital. does not know the year. pt appears comfortable. no specific complaints. pt with hypernatremia and hypokalemia but then sodium levels were going low and k trending up and iv fluids were switched up yesterday. Objective Date Time Temp Pulse Resp B/P Pulse Ox O2 Delivery O2 Flow Rate FiO2 01/21/17 07:01 37.1 81 16 111/65 93 Room Air 01/21/17 04:00 37.0 83 16 104/66 95 Room Air 01/21/17 04:00 Room Air 01/21/17 00:00 Room Air 01/20/17 23:42 37.2 87 16 102/65 92 Room Air 01/20/17 20:25 95 Room Air 01/20/17 20:14 36.7 87 20 114/63 94 Room Air 01/20/17 16:28 95 Room Air 01/20/17 16:14 36.4 78 20 111/65 95 Room Air 01/20/17 12:00 Room Air 01/20/17 11:17 35.8 82 18 108/67 98 Room Air Physical Exam: General-aaox2 Eyes-no scleral icterus ENT-mmm Neck-supple Lungs-decreased at bases but poor inspiratory efforts Heart-rrr Abdomen-bs+ s/nt/nd Extremities-mild edema Neuro-quiet, follows commands, gets confused easily Current Inpatient Medications Medications (Trade) Dose Ordered Sig/Donald Route Start Time Stop Time Status Last Admin Dose Admin Acetaminophen (Tylenol Tab) 650 mg Q4H PRN PO 01/15/17 03:15 02/14/17 03:14 Future Hold Al Hydrox/Mg Hydrox/Simethicone (Maalox Max Susp) 15 ml Q4H PRN PO 01/15/17 03:15 02/14/17 03:14 Future Hold Magnesium Hydroxide (Milk Of Magnesia Susp) 30 ml Q12H PRN PO 01/15/17 03:15 02/14/17 03:14 Future Hold Ondansetron HCl (Zofran Inj) 4 mg Q6H PRN IV 01/15/17 03:15 02/14/17 03:14 01/19/17 10:23 4 MG Nitroglycerin (Nitrostat Tab) 0.4 mg UD PRN SL 01/15/17 03:15 02/14/17 03:14 Polyethylene (Miralax Powder Packet) 17 gm DAILY PRN PO 01/15/17 03:15 02/14/17 03:14 Carvedilol (Coreg Tab) 3.125 mg BID PO 01/15/17 09:00 02/14/17 08:59 01/20/17 21:20 3.125 MG Ferrous Sulfate (Feosol Tab) 325 mg DAILY PO 01/15/17 09:00 02/14/17 08:59 Future Hold 01/15/17 07:37 325 MG Ondansetron HCl (Zofran Tab) 4 mg Q6H PRN PO 01/15/17 03:15 02/14/17 03:14 Future Hold Pantoprazole Sodium (Protonix Tab) 40 mg DAILY PO 01/15/17 09:00 02/14/17 08:59 Future Hold 01/15/17 07:37 40 MG Senna (Senokot Tab) 17.2 mg DAILY PO 01/15/17 09:00 02/14/17 08:59 Future Hold 01/15/17 07:37 17.2 MG Tramadol HCl (Ultram Tab) 50 mg Q8H PRN PO 01/15/17 03:15 02/14/17 03:14 Future Hold Miscellaneous Information (Order Awaiting Action) 1 ea QS N/A 01/15/17 08:00 02/14/17 07:59 Oxycodone HCl (Roxicodone Immediate Rel Tab) 10 mg Q8 PRN PO 01/15/17 03:15 02/14/17 03:14 Future Hold Piperacillin Sod/ Tazobactam Sod 1 ea 1 ea UD PRN N/A 01/19/17 16:30 02/18/17 16:29 Piperacillin Sod/ Tazobactam Sod 3.375 gm/Dextrose 115 ml @ 28.75 mls/ hr Q8H IV 01/20/17 00:00 01/21/17 16:59 01/21/17 05:32 28.75 MLS/HR Folic Acid/Syringe (Folvite Inj/ Syringe) 10 ml @ 5 mls/min DAILY IV 01/19/17 18:00 02/18/17 17:59 01/20/17 09:12 5 MLS/MIN Cyanocobalamin 1000 mcg 1,000 mcg DAILY IM 01/19/17 18:00 02/18/17 17:59 01/20/17 09:13 1,000 MCG Thiamine HCl 100 mg/Syringe 10 ml @ 2 mls/min DAILY IV 01/19/17 18:00 02/18/17 17:59 01/20/17 09:12 2 MLS/MIN Sodium Bicarbonate/ Sodium Chloride (Sodium Bicarbonate 8.4% Inj/1/2 Nss 1000ml) 1,075 ml @ 100 mls/hr [id number] IV 01/19/17 18:30 02/18/17 17:29 01/20/17 22:12 100 MLS/HR Vancomycin HCl 1 ea 1 ea UD PRN N/A 01/19/17 18:45 02/18/17 18:44 Vancomycin HCl/ Sodium Chloride (Vancomycin Inj/ Nss 250ml) 268 ml @ 125 mls/hr Q24H IV 01/20/17 11:00 01/21/17 16:59 01/20/17 11:29 125 MLS/HR Vitamin B Complex (Vitamin B Complex) 1 tab QAM PO 01/21/17 09:00 02/20/17 08:59 Multivitamins Therapeutic 15 ml 15 ml QAM PO 01/21/17 09:00 02/20/17 08:59 Pantoprazole Sodium/Syringe (Protonix Inj/ Syringe) 10 ml @ 5 mls/min DAILY@11 IV 01/21/17 11:00 02/20/17 10:59 Heparin Sodium (Porcine) (Heparin Sq 5000 Unit/0.5ml) 5,000 unit Q8 SQ 01/20/17 22:00 02/19/17 21:59 01/20/17 21:23 5,000 UNIT Last 24 Hours Test 01/20/17 12:17 01/20/17 16:15 01/21/17 05:09 Lactic Acid Level 1.1 mmol/L 1.2 mmol/L Sodium Level 144 mmol/L Potassium Level 3.4 mmol/L Chloride Level 108 mmol/L Carbon Dioxide Level 29 mmol/L Anion Gap 7.0 mmol/L Blood Urea Nitrogen 15 mg/dl Creatinine 1.60 mg/dl Est Creatinine Clear Calc Drug Dose 26.6 ml/min Estimated GFR () 36.4 Estimated GFR (Non- 31.4 BUN/Creatinine Ratio 9.3 Random Glucose 71 mg/dl Calcium Level 7.4 mg/dl Assessment & Plan [id number]-creatinine has ranged from 1.2 to 1.8 and last creatinine was 1.6-no dialysis indicated. continue iv fluids. pt though with underlying failure to thrive and poor [facility] prognosis. risk of volume depletion and dehydration as outpt. still with poor po intake. hypernatremia-151 to 133 and now up to 144. switch back to 1/2ns with 20 of k. hypokalemia-k has ranged from 2.9 to 5.4 and currently 3.4. will add back potassium to the fluids and replete prn.
[2017-01-21] MEDS: SODIUM CHLOR 0.45% + 20MEQ KCL 1,000 ML IV SCH ×2 (09:47→20:06)
[2017-01-21] MEDS: VANCOMYCIN INJ 900 MG in SODIUM CHLORIDE 0.9% 250ML 250 ML IV SCH (11:23)
[2017-01-21] MEDS: PANTOprazole INJ 40 MG in SYRINGE 0 ML IV SCH (11:24)
--- NOTE | 2017-01-21 11:50 | Surgery Progress Note ---
Surgery Progress Note Date of Service Jan 21, 2017. Subjective Post OP Day: HD # 6 Per nursing staff patient alert x 4 today again not very interactive upon questioning , ROS not obtained Objective Vital Signs: Date Time Temp Pulse Resp B/P Pulse Ox O2 Delivery O2 Flow Rate FiO2 01/21/17 11:39 36.3 84 16 112/58 93 Room Air 01/21/17 08:00 93 Room Air 01/21/17 07:01 37.1 81 16 111/65 93 Room Air 01/21/17 04:00 37.0 83 16 104/66 95 Room Air 01/21/17 04:00 Room Air 01/21/17 00:00 Room Air 01/20/17 23:42 37.2 87 16 102/65 92 Room Air 01/20/17 20:25 95 Room Air 01/20/17 20:14 36.7 87 20 114/63 94 Room Air 01/20/17 16:28 95 Room Air 01/20/17 16:14 36.4 78 20 111/65 95 Room Air 01/20/17 12:00 Room Air General Appearance: no apparent distress Head: normocephalic, atraumatic Respiratory/Chest: no respiratory distress, no accessory muscle use Abdomen: non tender, non distended, soft Laboratory Results: Results Past 24 Hours Test 01/20/17 12:17 01/20/17 16:15 01/21/17 05:09 Range/Units Lactic Acid Level 1.1 1.2 0.4-2.0 mmol/L Sodium Level 144 136-145 mmol/L Potassium Level 3.4 3.5-5.1 mmol/L Chloride Level 108 98-107 mmol/L Carbon Dioxide Level 29 21-32 mmol/L Anion Gap 7.0 3-11 mmol/L Blood Urea Nitrogen 15 7-18 mg/dl Creatinine 1.60 0.60-1.20 mg/dl Est Creatinine Clear Calc Drug Dose 26.6 ml/min Estimated GFR () 36.4 Estimated GFR (Non- 31.4 BUN/Creatinine Ratio 9.3 10-20 Random Glucose 71 70-99 mg/dl Calcium Level 7.4 8.5-10.1 mg/dl Assessment & Plan Mild Colonic Ileus - Lactic acid 5.9 Tuesday normalized to 0.7 , repeat lactic acid 1.1 and 1.2 - abdominal examination soft, nontender, no rigidity or guarding - Vital signs stable Altered Mental status UTI Sepsis Gallstones without Cholecystitis Plan: No surgical intervention required at this time. Abdomen soft and benign Would continue IV antibiotics and further management per hospitalist service will continue to follow Dr. Calderón has seen and examined patient, agrees with assessment and plan.
--- NOTE | 2017-01-21 17:32 | Progress Note ---
Internal Med Progress Note Date of Service: Jan 21, 2017. Provider Documentation: SUBJECTIVE: sleeping can tell her name says she is fine afebrile denies any complaints OBJECTIVE: Vital Signs-as noted below Exam: General-alert and awake. Neck-no neck masses Lungs-cta b/l no added sounds Heart-s1 and s2 heard no murmurs Abdomen-soft bowel sounds no distension non tender Extremities-no edema no erythema Neuro-alert and awake moves extremities Lab data as noted below. ASSESSMENT & PLAN: Metabolic Encephalopathy No h/o Dementia.condition has been getting worse for the last few weeks as per the daughters but was stable 4 weeks ago Hypernatremia-improved 'repeat ct head unremarkable folate levels low, vitamin b12 borderline and thiamine levels pending will replace vitamins consulted neurology and appreciate inputs mental status slowly improving will monitor ACUTE KIDNEY INJURY Secondary to DEHYDRATION due to poor oral intake on fluids will f/u labs Elevated lactic acid hypothermia sepsis? could be from hyperventilation deconditioned patient empirically started on iv vanco and Zosyn on fluids f/u cx ct abd/pelvis mild colonic ileus Hemoccult negative ischemic bowel-unlikely as abdomen seems benign and Hemoccult negative no cholecystitis on ct scan or US lactic acid normalized appreciate surgical inputs stable Anemia acute on chronic? folate deficiency hb 7.4 today Hemoccult negative question of coffee ground emesis on ppi drip will transfuse 2 units prbc hb improved to 10.0 seems second vomitus was yellowish color stopped ppi drip will f/u labs HYPERNATREMIA: improved with fluids 'appreciate nephrology inputs Electrolytes Imbalance replaced will f/u labs Dysphagia with Vomiting Difficulty in swallowing for a while Has vomiting associated with it Barium swallow in [facility]-unremarkable GI holding on EGD until mental status improves on mechanical soft diet If not eating will consider tpn. MILD ELEVATION OF TROPONIN : normalized POSSIBLE UTI : UA grossly positive was on Rocephin cx unremarkable abx stopped currently on above abx and will f/u repeat cx will start on Diflucan for yenni in urine Code status DNR d/W daughter and patient is DNR Dvt px scds for possible gi bleed Disposition To be determined Family notified patient condition Vital Signs: Date Time Temp Pulse Resp B/P Pulse Ox O2 Delivery O2 Flow Rate FiO2 01/21/17 16:00 Room Air 01/21/17 15:43 36.9 75 16 103/58 95 Room Air 01/21/17 12:00 93 Room Air 01/21/17 11:39 36.3 84 16 112/58 93 Room Air 01/21/17 08:00 93 Room Air 01/21/17 07:01 37.1 81 16 111/65 93 Room Air 01/21/17 04:00 37.0 83 16 104/66 95 Room Air 01/21/17 04:00 Room Air 01/21/17 00:00 Room Air 01/20/17 23:42 37.2 87 16 102/65 92 Room Air 01/20/17 20:25 95 Room Air 01/20/17 20:14 36.7 87 20 114/63 94 Room Air Lab Results: Results Past 24 Hours Test 01/21/17 05:09 Range/Units Sodium Level 144 136-145 mmol/L Potassium Level 3.4 3.5-5.1 mmol/L Chloride Level 108 98-107 mmol/L Carbon Dioxide Level 29 21-32 mmol/L Anion Gap 7.0 3-11 mmol/L Blood Urea Nitrogen 15 7-18 mg/dl Creatinine 1.60 0.60-1.20 mg/dl Est Creatinine Clear Calc Drug Dose 26.6 ml/min Estimated GFR () 36.4 Estimated GFR (Non- 31.4 BUN/Creatinine Ratio 9.3 10-20 Random Glucose 71 70-99 mg/dl Calcium Level 7.4 8.5-10.1 mg/dl
[2017-01-21] MEDS ORDERED: FLUCONAZOLE / NSS 200 MG in PREMIXED NSS 100 ML IV STA (17:50)
[2017-01-22] VITALS (9 sets, daily range): BP systolic 118–147; BP diastolic 57–73; PULSE 68–73; TEMP 36.4–37; O2SAT 95–98
[2017-01-22 05:46] LABS: BASO % 0.2 %; BASO ABS # 0.01 K/uL (0-0.2); EOS % 4.4 %; HEMATOCRIT 25.1 % (37-47); IG% 0.8 %; LYMPH % 21.7 %; LYMPH ABS # 1.14 K/uL (1.2-3.4); MEAN CELL VOLUME 86.3 fL (80-100); MEAN CORPUSCULAR HEMOGLOBIN 29.9 pg (25-34); MEAN CORPUSCULAR HGB CONC 34.7 g/dl (32-36); MEAN PLATELET VOLUME 9.8 fL (7.4-10.4); MONO % 7.4 %; NEUT % 65.5 %; PLATELET COUNT 141 K/uL (130-400); RED BLOOD COUNT 2.91 M/uL (4.2-5.4); WHITE BLOOD COUNT 5.25 K/uL (4.8-10.8)
[2017-01-22] MEDS: SODIUM CHLOR 0.45% + 20MEQ KCL 1,000 ML IV SCH ×2 (05:46→15:50)
[2017-01-22] MEDS: HEPARIN SOD 5000 UNIT/0.5 ML CARP SQ SCH ×3 (05:49→21:21)
[2017-01-22 06:04] LABS: CALCIUM 7.4 mg/dl (8.5-10.1); CREATININE 1.5 mg/dl (0.60-1.20); MAGNESIUM 1.5 mg/dl (1.8-2.4); POTASSIUM 3.4 mmol/L (3.5-5.1)
[2017-01-22 06:25] LABS: COMPLETE YES
[2017-01-22] MEDS ORDERED: POTASSIUM CHLORIDE 10 MEQ TABCR PO STA (07:43)
[2017-01-22] MEDS: MAGNESIUM SULFATE 1GM / D5W 1 GM in PREMIXED IN D5W 100 ML IV SCH ×2 (08:10→09:51)
[2017-01-22] MEDS: VITAMIN B COMPLEX TAB PO SCH (08:13)
[2017-01-22] MEDS: CARVEDILOL 3.125 MG TAB PO SCH ×2 (08:13→21:01)
[2017-01-22] MEDS: MULTIVITAMINS W/MINERALS 15ML UDP PO SCH (08:15)
[2017-01-22] MEDS: CYANOCOBALAMIN 1000 MCG/ML VIAL IM SCH (08:47)
[2017-01-22] MEDS: FoLIC ACID INJ 1 MG in SYRINGE 9.8 ML IV SCH (08:50)
[2017-01-22] MEDS: THIAMINE HCL INJ 100 MG in SYRINGE 9 ML IV SCH (08:50)
[2017-01-22] MEDS: MAGNESIUM CHLORIDE 64MG DELAYED REL TAB PO SCH ×2 (08:51→21:00)
[2017-01-22] MEDS ORDERED: VANCOMYCIN TROUGH SCH (10:30)
[2017-01-22] MEDS ORDERED: POTASSIUM CHLR 20 MEQ / WTR 10 MEQ in PREMIXED WATER 100 ML IV SCH (10:30)
[2017-01-22] MEDS: PANTOprazole INJ 40 MG in SYRINGE 0 ML IV SCH (11:18)
[2017-01-22] MEDS: POTASSIUM CHLR 10 MEQ / WTR 10 MEQ in PREMIXED WATER 100 ML IV SCH ×2 (11:18→12:31)
[2017-01-22] MEDS ORDERED: ERGOCALCIFEROL 50,000 INTER.UNIT CAP PO ONE (15:15)
[2017-01-22] MEDS ORDERED: TPN/PPN CONSULT PHARMACY PRN (16:25)
--- NOTE | 2017-01-22 17:41 | Progress Note ---
Internal Med Progress Note Date of Service: Jan 22, 2017. Provider Documentation: SUBJECTIVE: says she is rsting denies any pain not eating as per nursing staff sayss she doesn't know her name OBJECTIVE: Vital Signs-as noted below Exam: General-alert and awake.Not oriented Neck-no neck masses Lungs-cta b/l no added sounds Heart-s1 and s2 heard no murmurs Abdomen-soft bowel sounds no distension non tender Extremities-no edema no erythema Neuro-alert and awake moves extremities Lab data as noted below. ASSESSMENT & PLAN: Metabolic Encephalopathy? No h/o Dementia.condition has been getting worse for the last few weeks as per the daughters but was stable 4 weeks ago Hypernatremia-improved 'repeat ct head unremarkable folate levels low, vitamin b12 borderline and thiamine levels pending will replace vitamins consulted neurology and appreciate inputs mental status seemed improved but as patuinet is awake now but doesnot know her name and refusing to eat Failure to Thrive? d/w daughter - ants to try TPN and see. Questionable mobitz 2 on tele strip one episode ekg ok will monitor ACUTE KIDNEY INJURY Secondary to DEHYDRATION due to poor oral intake on fluids will f/u labs Elevated lactic acid hypothermia sepsis? could be from hyperventilation deconditioned patient empirically started on iv vanco and Zosyn on fluids f/u cx ct abd/pelvis mild colonic ileus Hemoccult negative ischemic bowel-unlikely as abdomen seems benign and Hemoccult negative no cholecystitis on ct scan or US lactic acid normalized appreciate surgical inputs stopped abx will f/u kub stable Anemia acute on chronic? folate deficiency hb 7.4 today Hemoccult negative question of coffee ground emesis on ppi drip s/p 2 units prbc hb improved to 10.0 seems second vomitus was yellowish color stopped ppi drip will f/u labs HYPERNATREMIA: improved with fluids 'appreciate nephrology inputs Electrolytes Imbalance replaced will f/u labs Dysphagia with Vomiting Difficulty in swallowing for a while Has vomiting associated with it Barium swallow in [facility]-unremarkable GI holding on EGD until mental status improves on mechanical soft diet If not eating will consider tpn. Plan to start TPN plan for picc ine MILD ELEVATION OF TROPONIN : normalized POSSIBLE UTI : UA grossly positive was on Rocephin cx unremarkable abx stopped will start on Diflucan for yenni in urine Code status DNR d/W daughter and patient is DNR Dvt px scds for possible gi bleed Disposition To be determined Family notified patient condition Vital Signs: Date Time Temp Pulse Resp B/P Pulse Ox O2 Delivery O2 Flow Rate FiO2 01/22/17 16:00 95 Room Air 01/22/17 15:09 36.8 70 20 147/72 97 01/22/17 12:11 36.4 72 20 127/73 96 Room Air 01/22/17 12:00 95 Room Air 01/22/17 09:00 36.7 68 20 124/57 96 Room Air 01/22/17 08:00 95 Room Air 01/22/17 04:24 36.5 68 18 118/66 95 Room Air 01/22/17 04:00 Room Air 01/21/17 23:59 36.9 72 18 116/63 96 Room Air 01/21/17 23:15 Room Air 01/21/17 20:00 Room Air 01/21/17 19:45 36.8 74 18 117/67 96 Room Air Lab Results: Results Past 24 Hours Test 01/22/17 05:18 Range/Units White Blood Count 5.25 4.8-10.8 K/uL Red Blood Count 2.91 4.2-5.4 M/uL Hemoglobin 8.7 12.0-16.0 g/dL Hematocrit 25.1 37-47 % Mean Corpuscular Volume 86.3 80-100 fL Mean Corpuscular Hemoglobin 29.9 25-34 pg Mean Corpuscular Hemoglobin Concent 34.7 32-36 g/dl Platelet Count 141 130-400 K/uL Mean Platelet Volume 9.8 7.4-10.4 fL Neutrophils (%) (Auto) 65.5 % Lymphocytes (%) (Auto) 21.7 % Monocytes (%) (Auto) 7.4 % Eosinophils (%) (Auto) 4.4 % Basophils (%) (Auto) 0.2 % Neutrophils # (Auto) 3.44 1.4-6.5 K/uL Lymphocytes # (Auto) 1.14 1.2-3.4 K/uL Monocytes # (Auto) 0.39 0.11-0.59 K/uL Eosinophils # (Auto) 0.23 0-0.5 K/uL Basophils # (Auto) 0.01 0-0.2 K/uL RDW Standard Deviation 42.5 36.4-46.3 fL RDW Coefficient of Variation 13.6 11.5-14.5 % Immature Granulocyte % (Auto) 0.8 % Immature Granulocyte # (Auto) 0.04 0.00-0.02 K/uL Red Blood Cell Morphology Unremarkable Sodium Level 144 136-145 mmol/L Potassium Level 3.4 3.5-5.1 mmol/L Chloride Level 110 98-107 mmol/L Carbon Dioxide Level 27 21-32 mmol/L Anion Gap 7.0 3-11 mmol/L Blood Urea Nitrogen 12 7-18 mg/dl Creatinine 1.50 0.60-1.20 mg/dl Est Creatinine Clear Calc Drug Dose 28.4 ml/min Estimated GFR () 39.4 Estimated GFR (Non- 34.0 BUN/Creatinine Ratio 8.0 10-20 Random Glucose 64 70-99 mg/dl Calcium Level 7.4 8.5-10.1 mg/dl Phosphorus Level 3.0 2.5-4.9 mg/dl Magnesium Level 1.5 1.8-2.4 mg/dl 25-Hydroxy Vitamin D Total 7.6 30-100 ng/ml
[2017-01-22] MEDS ORDERED: FLUCONAZOLE 100MG / NSS IV SCH (18:00)
[2017-01-22] MEDS: CALCIUM 600MG + VIT D 400 IU TAB PO SCH (21:00)
[2017-01-22] MEDS: CHOLECALCIFEROL 1000 INTER.UNIT TAB PO SCH (21:19)
[2017-01-23] VITALS (11 sets, daily range): BP systolic 123–162; BP diastolic 73–85; PULSE 66–77; TEMP 36–37; O2SAT 95–98
[2017-01-23] MEDS: SODIUM CHLOR 0.45% + 20MEQ KCL 1,000 ML IV SCH (01:09)
--- NOTE | 2017-01-23 05:25 | Surgery Progress Note ---
Surgery Progress Note Date of Service Jan 22, 2017 Subjective responsive, no distress Objective Vital Signs: Date Time Temp Pulse Resp B/P Pulse Ox O2 Delivery O2 Flow Rate FiO2 01/23/17 04:53 Room Air 01/23/17 04:00 36.3 69 20 123/75 98 Room Air 01/23/17 00:14 36.8 74 18 131/80 96 Room Air 01/23/17 00:01 Room Air 01/22/17 20:22 95 Room Air 01/22/17 19:34 37.0 73 18 137/72 98 Room Air 01/22/17 16:00 95 Room Air 01/22/17 15:09 36.8 70 20 147/72 97 01/22/17 12:11 36.4 72 20 127/73 96 Room Air 01/22/17 12:00 95 Room Air 01/22/17 09:00 36.7 68 20 124/57 96 Room Air 01/22/17 08:00 95 Room Air Respiratory/Chest: no respiratory distress Abdomen: normal bowel sounds, soft Laboratory Results: Results Past 24 Hours Test 01/23/17 04:44 Range/Units Assessment & Plan 01/22/17- pts abd flat, soft, active bs- cont to follow. had bms over past few days
[2017-01-23 06:05] LABS: BUN/CREATININE RATIO 7.7 (10-20); CREATININE 1.5 mg/dl (0.60-1.20); MAGNESIUM 2.3 mg/dl (1.8-2.4); PHOSPHORUS 3.3 mg/dl (2.5-4.9); POTASSIUM 4.7 mmol/L (3.5-5.1)
[2017-01-23] MEDS: HEPARIN SOD 5000 UNIT/0.5 ML CARP SQ SCH ×3 (06:22→20:39)
[2017-01-23 06:41] LABS: BASO % 0.6 %; BASO ABS # 0.04 K/uL (0-0.2); EOS % 3.9 %; HEMATOCRIT 29.1 % (37-47); IG% 2.8 %; LYMPH ABS # 1.29 K/uL (1.2-3.4); MEAN CELL VOLUME 84.8 fL (80-100); MEAN CORPUSCULAR HEMOGLOBIN 28.9 pg (25-34); MEAN PLATELET VOLUME 9.6 fL (7.4-10.4); MONO % 10.8 %; NEUT % 61.9 %; PLATELET COUNT 149 K/uL (130-400); RED BLOOD COUNT 3.43 M/uL (4.2-5.4); WHITE BLOOD COUNT 6.46 K/uL (4.8-10.8)
--- NOTE | 2017-01-23 06:56 | Surgery Progress Note ---
Surgery Progress Note Date of Service Jan 23, 2017. Subjective No nausea, No vomiting lethargic, no significant abd pain, doesn't want to eat Objective Vital Signs: Date Time Temp Pulse Resp B/P Pulse Ox O2 Delivery O2 Flow Rate FiO2 01/23/17 04:53 Room Air 01/23/17 04:00 36.3 69 20 123/75 98 Room Air 01/23/17 00:14 36.8 74 18 131/80 96 Room Air 01/23/17 00:01 Room Air 01/22/17 20:22 95 Room Air 01/22/17 19:34 37.0 73 18 137/72 98 Room Air 01/22/17 16:00 95 Room Air 01/22/17 15:09 36.8 70 20 147/72 97 01/22/17 12:11 36.4 72 20 127/73 96 Room Air 01/22/17 12:00 95 Room Air 01/22/17 09:00 36.7 68 20 124/57 96 Room Air 01/22/17 08:00 95 Room Air General Appearance: no apparent distress Respiratory/Chest: no respiratory distress Abdomen: non tender, soft Laboratory Results: Results Past 24 Hours Test 01/23/17 05:27 01/23/17 06:31 Range/Units Sodium Level 142 136-145 mmol/L Potassium Level 4.7 3.5-5.1 mmol/L Chloride Level 109 98-107 mmol/L Carbon Dioxide Level 24 21-32 mmol/L Anion Gap 9.0 3-11 mmol/L Blood Urea Nitrogen 12 7-18 mg/dl Creatinine 1.50 0.60-1.20 mg/dl Est Creatinine Clear Calc Drug Dose 28.4 ml/min Estimated GFR () 39.4 Estimated GFR (Non- 34.0 BUN/Creatinine Ratio 7.7 10-20 Random Glucose 56 70-99 mg/dl Calcium Level 8.0 8.5-10.1 mg/dl Phosphorus Level 3.3 2.5-4.9 mg/dl Magnesium Level 2.3 1.8-2.4 mg/dl Total Bilirubin 0.5 0.2-1 mg/dl Aspartate Amino Transf (AST/SGOT) 21 15-37 U/L Alanine Aminotransferase (ALT/SGPT) 14 12-78 U/L Alkaline Phosphatase 119 45-117 U/L Albumin 1.8 3.4-5.0 gm/dl Triglycerides Level 153 0-150 mg/dl Chemistry Specimen Hemolysis White Blood Count 6.46 4.8-10.8 K/uL Red Blood Count 3.43 4.2-5.4 M/uL Hemoglobin 9.9 12.0-16.0 g/dL Hematocrit 29.1 37-47 % Mean Corpuscular Volume 84.8 80-100 fL Mean Corpuscular Hemoglobin 28.9 25-34 pg Platelet Count 149 130-400 K/uL Mean Platelet Volume 9.6 7.4-10.4 fL Neutrophils (%) (Auto) 61.9 % Lymphocytes (%) (Auto) 20.0 % Monocytes (%) (Auto) 10.8 % Eosinophils (%) (Auto) 3.9 % Basophils (%) (Auto) 0.6 % Neutrophils # (Auto) 4.00 1.4-6.5 K/uL Lymphocytes # (Auto) 1.29 1.2-3.4 K/uL Monocytes # (Auto) 0.70 0.11-0.59 K/uL Eosinophils # (Auto) 0.25 0-0.5 K/uL Basophils # (Auto) 0.04 0-0.2 K/uL RDW Standard Deviation 41.1 36.4-46.3 fL RDW Coefficient of Variation 13.4 11.5-14.5 % Immature Granulocyte % (Auto) 2.8 % Immature Granulocyte # (Auto) 0.18 0.00-0.02 K/uL Assessment & Plan 01/23/17- Does not have acute surgical problem from standpoint of her abd. Needs significant supportive care otherwise. May need EGD/ colonoscopy 01/22/17- pts abd flat, soft, active bs- cont to follow. had bms over past few days 01/22/17- pts abd flat, soft, active bs- cont to follow. had bms over past few days
[2017-01-23 07:33] LABS: PREALBUMIN 10.6 mg/dl (20-40)
[2017-01-23 07:34] LABS: COMPLETE YES
[2017-01-23] MEDS ORDERED: DEXTROSE 50% 50 ML SYR IV ONE (08:30)
[2017-01-23] MEDS: FoLIC ACID INJ 1 MG in SYRINGE 9.8 ML IV SCH (08:51)
[2017-01-23] MEDS: THIAMINE HCL INJ 100 MG in SYRINGE 9 ML IV SCH (08:51)
[2017-01-23] MEDS: CYANOCOBALAMIN 1000 MCG/ML VIAL IM SCH (08:52)
[2017-01-23] MEDS: D5W AND 1/2NSS 1,000 ML IV SCH ×2 (08:55→18:22)
[2017-01-23] MEDS: MULTIVITAMINS W/MINERALS 15ML UDP PO SCH (09:00)
[2017-01-23] MEDS: CALCIUM 600MG + VIT D 400 IU TAB PO SCH ×2 (09:00→20:37)
[2017-01-23] MEDS: MAGNESIUM CHLORIDE 64MG DELAYED REL TAB PO SCH ×2 (09:00→20:37)
[2017-01-23] MEDS: VITAMIN B COMPLEX TAB PO SCH (09:00)
[2017-01-23] MEDS: CHOLECALCIFEROL 1000 INTER.UNIT TAB PO SCH ×2 (09:00→20:38)
[2017-01-23] MEDS: CARVEDILOL 3.125 MG TAB PO SCH ×2 (09:08→20:39)
[2017-01-23] MEDS ORDERED: DEXTROSE 10% 1,000 ML IV PRN (10:05)
--- NOTE | 2017-01-23 10:33 | Pharmacy Progress Note ---
Parenteral Nutrition Consult Date of Service Jan 23, 2017. Scope Pharmacy has been consulted to manage parenteral nutrition orders and order appropriate labs. As part of the Nutrition Support Team guidelines, pharmacy will work in conjunction with dietary when determining the patients caloric needs. Subjective The patient is a 76 year old female admitted on Jan 15, 2017 at 01:39 for Acute Renal Failure, Elevated Troponin, Poor Fluid. Patient is to receive parenteral nutrition for [INDICATION]. Pertinent PMH: chronic hypernatremia Objective Height (Feet): 5 Height (Inches): 4.00 Weight (Kilograms): 60.200 Diet: Regular Vascular Access: PICC Intake & Output (Last 72 Hr): 01/21/17 01/22/17 01/23/17 08:00 08:00 08:00 Intake Total 1906 ml 2160 ml 2737 ml Output Total 1600 ml 1300 ml 2200 ml Balance 306 ml 860 ml 537 ml Intake & Output Label Value Date Time Total Out 8275 ml 01/23/17 0709(cumulative) Total In 35059 ml 01/23/17 0709(cumulative) Laboratory Data (Last 24 Hr): Test 01/23/17 05:27 Alanine Aminotransferase (ALT/SGPT) 14 U/L (12-78) Albumin 1.8 gm/dl (3.4-5.0) Alkaline Phosphatase 119 U/L (45-117) Aspartate Amino Transf (AST/SGOT) 21 U/L (15-37) Blood Urea Nitrogen 12 mg/dl (7-18) Calcium Level 8.0 mg/dl (8.5-10.1) Carbon Dioxide Level 24 mmol/L (21-32) Chloride Level 109 mmol/L (98-107) Creatinine 1.50 mg/dl (0.60-1.20) Magnesium Level 2.3 mg/dl (1.8-2.4) Phosphorus Level 3.3 mg/dl (2.5-4.9) Potassium Level 4.7 mmol/L (3.5-5.1) Prealbumin 10.6 mg/dl (20-40) Random Glucose 56 mg/dl (70-99) Sodium Level 142 mmol/L (136-145) Total Bilirubin 0.5 mg/dl (0.2-1) Triglycerides Level 153 mg/dl (0-150) Recent Pertinent Medications: Item Value Date Time Calcium/Vitamin D 1 tab 4/15/17 2100 (Caltrate Plus BID/PO 01/22/17 2100 Tab) Cholecalciferol 2,000 inter.unit 01/22/17 2100 (Vitamin D Tab) BID/PO 01/22/17 2119 Cyanocobalamin 1,000 mcg 01/19/17 1800 (Vitamin B-12 DAILY/IM 01/23/17 0852 Inj) Ergocalciferol 50,000 interunit 01/22/17 1515 (Vitamin D Cap) NOW ONCE/PO 01/22/17 1548 Folic Acid 1 mg/ 10 ml @ 5 mls/min 01/19/17 1800 Syringe DAILY/IV 01/23/17 0851 Magnesium Chloride 64 mg 01/22/17 0900 (Slow-Mag Tab) BID/PO 01/22/17 2100 Multivitamins 15 ml 01/21/17 0900 Therapeutic QAM/PO 01/22/17 0815 (Cerovite Liquid) Pantoprazole 10 ml @ 5 mls/min 01/21/17 1100 Sodium 40 mg/ DAILY@11/IV 01/22/17 1118 Syringe Thiamine HCl 100 10 ml @ 2 mls/min 01/19/17 1800 mg/Syringe DAILY/IV 01/23/17 0851 Vitamin B Complex 1 tab 01/21/17 0900 (Vitamin B QAM/PO 01/22/17 0813 Complex) Nutrition Assessment Food and Nutrition Progress * Pt's PO intake remains poor; MD ordered TPN via PICC line though it appears that her GI tract is functional as evidenced by + BS, + flatus & LBM 01/22/17. No new abd imaging in the past few days, though suspect colonic ileus resolving. As per MD progress notes, pt's family interested in trial TPN. EN likely preferred route of nutrition support. Meds reviewed & include IVF's (1/2 NSS + 20 mEq KCl) @ 100 ml/hr, Cerovite, Fol, B12, thiamine, B complex, Slow Mg++. Labs noted 01/22/17 -> K+ 3.4(L), PO4 3.0, Mg++ 1.5(L), Vit D 7.6(L), Creat 1.5(H), Glu 64(L). TPN to be initiated 01/23/17 per MD. See recommendations below. Nutrition Assessment Label * Inadequate Oral Intake * Related To post-prandial N/V & dysphagia * Evidenced By decreased appetite, wt loss hx (amt unk), refusing meals & wound Intervention/Recommendations * Recommendations: 1) Consider a palliative care consult to discuss goals of care. 2) Consider Reglan d/t mild colonic ileus; Adjust bowel regimen PRN. 3) Closely monitor K+, Mg++, Ca++ & PO4 & replete as appropriate. 4) Daily wts & I/O monitoring. 5) Consider EN as preferred route of nutrition support. 6) Day 1 TPN: 60 g amino acids, 150 g dextrose, 0 g lipids in minimum volume over 24 hr providing 750 kcal. On subsequent days, titrate TPN up to goal of 90 g amino acids, 275 g dextrose w/50 g lipids twice weekly (/Tue) to provide a daily average of 1438 kcal with glucose infusion rate of 3.2 mg/kg/min. Pharmacy to manage lytes & other TPN additives. 7) Vitamin D repletion: 50,000 IU once weekly x 8 weeks, then 2,000 IU/day Assessment 76 y/o with decreased PO intake prior to and during this admission Daughter would like to trial TPN Able to and currently taking PO, however decrease PO intake currently Chronic hypernatremia and JAJA this admission to consider when ordering electrolytes in TPN Positive fluid balance Fungal UTI Plan For day 1 of PN administration, the following will be ordered: Macronutrients Amino acids 60 grams/day Dextrose 150 grams/day Lipids -- grams/day Micronutrients Combined electrolytes 20 mL contains 35 mEq Na, 20 meq K, 4.5 mEq Ca, 5 mEq Mg, 35 mEq Cl, 29.5 mEq acetate per 20 mL Sodium phosphate 10 MMol Potassium phosphate 10 mMol Of Note: Total volume 841 mL to be infused over 24 hrs will provide 750 kcal/day Labs ordered per TPN protocol Mag and calcium provided in both Combined Electrolyte as well as PO form - will monitor with AM lab draw MVI, minerals, thiamine, folic acid and PPI all provided outside of TPN IVF of D5W1/2NSS @ 100mL/hr continues (JAJA, defer rate of IVF to primary and/or renal team) Pharmacy will follow and adjust parenteral nutrition orders on a daily basis. Thank you.
[2017-01-23] MEDS: PANTOprazole INJ 40 MG in SYRINGE 0 ML IV SCH (14:48)
--- NOTE | 2017-01-23 15:47 | PSYCHIATRIC CONSULTATION ---
DATE OF CONSULTATION: 01/23/2017 IDENTIFYING INFORMATION: This is a 76-year-old female admitted to this facility 01/15/2017 following a medical hospitalization at [facility] for acute kidney injury and sepsis from 01/03/2017 to 01/13/2017. Reportedly, she had demonstrated failure to thrive for at least several weeks and sounds to have preceded her most recent medical hospitalization. She has a recent history of right hip fracture status post fall earlier this year and has reportedly demonstrated worsening mentation and lethargy with increased weakness, declining p.o. intake. She was admitted here with hypernatremia, hypokalemia, creatinine of 1.7, urine suggesting infection. She has been seen by nephrology, GI, and neurology. Metabolic encephalopathy has been suspected. No history of dementia, previously diagnosed reportedly mentation getting worse for the past few weeks per patient's daughters, but reportedly was stable about [address] was unremarkable, but did show moderate change suggestive of cerebrovascular disease. Vitamin levels including folate, B12, thiamine have been checked. Being fluid resuscitated. She is anemic. Electrolyte imbalance, improving. She has been treated for candidal UTI and was also briefly treated with Rocephin, which was stopped following negative culture for bacteria. She continues to have difficulty swallowing which sounds to be a problem for some time now. Barium swallow at [place] reportedly unremarkable. GI considering EGD when mentation improves. TPN being started in the meantime. The patient was unable to participate in interview secondary to lethargy with psychiatric nursing this morning. She attempted MMSE and was oriented to year, season, and month. There have been times when she has not been oriented to her own name during this hospitalization. Available nursing staff report that she does seem to be becoming progressively more alert and more consistently oriented. On interview, the patient is minimally participatory. Her eyes are heavy and she quickly closes them when not actively speaking. She is unable to quickly recall her medical circumstances, but with some cueing she is able to recall her hospitalization at [facility] and history of injury, but unable to identify much in the way of specifics or details regarding these circumstances and cannot identify the treatment that she is receiving presently. She acknowledges that her appetite has been low. She denies nausea. She states that she "sometimes" can feel a little down, but denies feeling particularly depressed and states that she actually feels "a little bit better now." She believes she is in [place]. She denies hallucinations, suicidal ideation or physical discomfort presently. PAST PSYCHIATRIC HISTORY: Unknown. The patient denies any history of treatment for psychiatric indications including history of depression. PAST MEDICAL HISTORY: Acute kidney injury, hypernatremia, renal insufficiency, UTI, dehydration, hip fracture. The patient unable to provide beyond what is in her record. FAMILY HISTORY: The patient denies awareness of psychiatric family history. SOCIAL HISTORY: The patient is , currently residing in [facility] setting. I believe, but has been living with family up until several months ago. She tells me she is from [place], [place]. No current alcohol use, never smoker. ALLERGIES: No known drug allergies. HOME MEDICATIONS: On admission, carvedilol, iron sulfate, melatonin, pantoprazole, potassium chloride, senna, Tylenol p.r.n., Dulcolax p.r.n., diphenhydramine, aspirin combination p.r.n., magnesium oxide p.r.n., Zofran p.r.n., oxycodone p.r.n., Fleet Enema p.r.n., tramadol p.r.n.. Reviewing inpatient medication I see that pain medications have been held. She is on thiamine and B12 supplementation as well as folic acid. REVIEW OF SYSTEMS: The patient generally denies review of systems. Pertinent positives however, her ability to provide an accurate history is certainly presently questionable. She denies physical pain. She denies nausea. She does endorse fatigue. She denies feeling overtly depressed but does endorse feeling a little down at times. Denies anxiety. Denies suicidal or homicidal ideation or hallucinations and reports feeling "sometimes" confused. MENTAL STATUS EXAMINATION: The patient is a very slight appearing female tucked under the covers in her hospital bed with only her head creeping above the covers and she has a blanket wrapped around the top of her head as well. She is drowsy to somnolent. Makes brief interactions before her eyes close again and she returns to sleep. Eye contact is fair when her eyes are open. Speech is soft, slow, but articulation sounds to be pretty good without obvious aphasias or paraphasia. Thought process appears slowed overall, however, interestingly, she is able to spell world forwards and backwards pretty quickly. She is disoriented to place. She is oriented to year and month. She is oriented to herself on interview. She describes her mood as "a little better now." Affect blunted to flat. Thought process again slowed, somewhat concrete. Thought content negative for expressed suicidal or homicidal ideation or overt delusional thought content. Her understanding of current circumstances is impaired. Insight presently limited. Judgment and impulse control presently limited. Motor activity is retarded. Gait is not witnessed. VITAL SIGNS: Temperature 36.5 this morning, pulse 66, respirations 16, blood pressure 149/85. LABORATORIES: Today showed no leukocytosis. She remains anemic. Glucose 88 today. Creatinine 1.5 down from 1.7 at time of admission. EGFR 34. Sodium 142. AST and ALT 21 and 14 respectively. Alkaline phosphatase elevated at 119. Albumin low at 1.8, prealbumin low at 10.6. TSH normal at 1.160 on 01/19/2017. Vitamin B12 is low at 230. Vitamin B1 level less than 7 and folate low at 1.80, vitamin D also low at 7.6. Neuro imaging, head CT on 01/18/2017 showed moderate white matter hypodensity, no acute process. ASSESSMENT AND PLAN: This is a 76-year-old female without known prior diagnosis of dementia who has now had several recent medical hospitalizations and general trend towards failure to thrive with declining p.o. intake and lethargy, which sounds to have preceded her most recent admission for urosepsis at the outside hospital. Since here she sounds to be trending towards being more consistently alert and oriented; however, this remains variable and a metabolic encephalopathy certainly appears likely. It is difficult to differentiate hypoactive delirium from a depressive state. We will need to better appreciate her baseline mood and cognitive status before making additional inferences. She might benefit from an antidepressant; however, I am hesitant to start one in the setting of acute delirium for fears further worsening or her sensorium. Will attempt to expand database getting additional history from patient's daughters as able. May consider low dose antidepressant trial if there is concern for down trending mood state prior to recent medical illness. Additionally, she might benefit from something like low dose mirtazapine for appetite stimulation in addition to mood benefit. However, we would certainly need to watch for further worsening her hypersomnolence. DIAGNOSES: Delirium, multifactorial; rule out depression; rule out major neurocognitive disorder. PLAN: 1. As above, we will attempt to expand database and better appreciate baseline cognitive and functional status as well as trends prior to considering initiation of any antidepressant therapy. 2. Agree with holding deliriogenic medications including the pain medications. Reorientation p.r.n. Facilitate sleep overnight. Bright room in the daytime. Minimize unnecessary stimulations overnight. We will follow.
[2017-01-23] MEDS ORDERED: CUSTOM CENTRAL PN 1 BAG IV SCH (16:00)
[2017-01-23] MEDS: FLUCONAZOLE 100 MG TAB PO SCH (16:38)
--- NOTE | 2017-01-23 17:01 | Progress Note ---
Internal Med Progress Note Date of Service: Jan 23, 2017. Provider Documentation: SUBJECTIVE: seemed more alert today could tell her name denies pain says she is fine does not answer other questions just says she is fine OBJECTIVE: Vital Signs-as noted below Exam: General-alert and awake. oriented x1 Neck-no neck masses Lungs-cta b/l no added sounds Heart-s1 and s2 heard no murmurs Abdomen-soft bowel sounds no distension non tender Extremities-no edema no erythema Neuro-alert and awake moves extremities Lab data as noted below. ASSESSMENT & PLAN: Metabolic Encephalopathy? No h/o Dementia.condition has been getting worse for the last few weeks as per the daughters but was stable 4 weeks ago Hypernatremia-improved 'repeat ct head unremarkable folate levels low, vitamin b12 borderline and thiamine levels pending Replacing vitamins consulted neurology and appreciate inputs mental status seemed somewhat improved with patient being more awake now but doesn't interact much and refusing to eat Failure to Thrive? d/w daughter - wants to try TPN and see. s/p picc line and staring on tpn consulted psychiatry for depression and appreciate inputs Questionable galoitz 2 on tele strip one episode ekg ok will monitor ACUTE KIDNEY INJURY Secondary to DEHYDRATION due to poor oral intake on fluids will f/u labs cr 1.5 baseline? Elevated lactic acid hypothermia sepsis? could be from hyperventilation deconditioned patient empirically started on iv vanco and Zosyn on fluids f/u cx ct abd/pelvis mild colonic ileus Hemoccult negative ischemic bowel-unlikely as abdomen seems benign and Hemoccult negative no cholecystitis on ct scan or US lactic acid normalized appreciate surgical inputs stopped abx will f/u kub stable Anemia acute on chronic? folate deficiency hb 7.4 today Hemoccult negative question of coffee ground emesis on ppi drip s/p 2 units prbc hb improved to 9.9 today seems second vomitus was yellowish color stopped ppi drip will f/u labs HYPERNATREMIA: improved with fluids 'appreciate nephrology inputs Electrolytes Imbalance replaced will f/u labs Dysphagia with Vomiting Difficulty in swallowing for a while Has vomiting associated with it Barium swallow in [facility]-unremarkable GI holding on EGD until mental status improves on mechanical soft diet If not eating will consider tpn. s/p picc line Plan to start TPN today MILD ELEVATION OF TROPONIN : normalized POSSIBLE UTI : UA grossly positive was on Rocephin cx unremarkable abx stopped will start on Diflucan for yenni in urine Code status DNR d/W daughter and patient is DNR Dvt px scds for possible gi bleed Disposition To be determined Family notified patient condition Vital Signs: Date Time Temp Pulse Resp B/P Pulse Ox O2 Delivery O2 Flow Rate FiO2 01/23/17 15:54 36.5 70 16 151/79 98 Room Air 01/23/17 12:00 97 Room Air 01/23/17 11:00 36.5 66 16 149/85 98 Room Air 01/23/17 08:00 98 Room Air 01/23/17 07:39 36.0 66 16 137/73 98 Room Air 01/23/17 04:53 Room Air 01/23/17 04:00 36.3 69 20 123/75 98 Room Air 01/23/17 00:14 36.8 74 18 131/80 96 Room Air 01/23/17 00:01 Room Air 01/22/17 20:22 95 Room Air 01/22/17 19:34 37.0 73 18 137/72 98 Room Air Lab Results: Results Past 24 Hours Test 01/23/17 05:27 01/23/17 06:31 01/23/17 08:00 01/23/17 08:02 Range/Units Sodium Level 142 136-145 mmol/L Potassium Level 4.7 3.5-5.1 mmol/L Chloride Level 109 98-107 mmol/L Carbon Dioxide Level 24 21-32 mmol/L Anion Gap 9.0 3-11 mmol/L Blood Urea Nitrogen 12 7-18 mg/dl Creatinine 1.50 0.60-1.20 mg/dl Est Creatinine Clear Calc Drug Dose 28.4 ml/min Estimated GFR () 39.4 Estimated GFR (Non- 34.0 BUN/Creatinine Ratio 7.7 10-20 Random Glucose 56 70-99 mg/dl Calcium Level 8.0 8.5-10.1 mg/dl Phosphorus Level 3.3 2.5-4.9 mg/dl Magnesium Level 2.3 1.8-2.4 mg/dl Total Bilirubin 0.5 0.2-1 mg/dl Aspartate Amino Transf (AST/SGOT) 21 15-37 U/L Alanine Aminotransferase (ALT/SGPT) 14 12-78 U/L Alkaline Phosphatase 119 45-117 U/L Albumin 1.8 3.4-5.0 gm/dl Prealbumin 10.6 20-40 mg/dl Triglycerides Level 153 0-150 mg/dl Chemistry Specimen Hemolysis White Blood Count 6.46 4.8-10.8 K/uL Red Blood Count 3.43 4.2-5.4 M/uL Hemoglobin 9.9 12.0-16.0 g/dL Hematocrit 29.1 37-47 % Mean Corpuscular Volume 84.8 80-100 fL Mean Corpuscular Hemoglobin 28.9 25-34 pg Mean Corpuscular Hemoglobin Concent 34.0 32-36 g/dl Platelet Count 149 130-400 K/uL Mean Platelet Volume 9.6 7.4-10.4 fL Neutrophils (%) (Auto) 61.9 % Lymphocytes (%) (Auto) 20.0 % Monocytes (%) (Auto) 10.8 % Eosinophils (%) (Auto) 3.9 % Basophils (%) (Auto) 0.6 % Neutrophils # (Auto) 4.00 1.4-6.5 K/uL Lymphocytes # (Auto) 1.29 1.2-3.4 K/uL Monocytes # (Auto) 0.70 0.11-0.59 K/uL Eosinophils # (Auto) 0.25 0-0.5 K/uL Basophils # (Auto) 0.04 0-0.2 K/uL RDW Standard Deviation 41.1 36.4-46.3 fL RDW Coefficient of Variation 13.4 11.5-14.5 % Immature Granulocyte % (Auto) 2.8 % Immature Granulocyte # (Auto) 0.18 0.00-0.02 K/uL Bedside Glucose 58 56 70-90 mg/dl Test 01/23/17 09:06 01/23/17 11:42 Range/Units Bedside Glucose 116 88 70-90 mg/dl
[2017-01-24] VITALS (8 sets, daily range): BP systolic 144–151; BP diastolic 74–87; PULSE 66–78; TEMP 36.5–37.1; O2SAT 96–99
[2017-01-24] MEDS: D5W AND 1/2NSS 1,000 ML IV SCH (04:41)
[2017-01-24 06:18] LABS: BASO % 0.4 %; BASO ABS # 0.03 K/uL (0-0.2); COMPLETE YES; EOS % 4.1 %; HEMATOCRIT 27.2 % (37-47); IG% 3.2 %; LYMPH % 18.8 %; LYMPH ABS # 1.37 K/uL (1.2-3.4); MEAN CELL VOLUME 84.5 fL (80-100); MEAN CORPUSCULAR HEMOGLOBIN 29.5 pg (25-34); MEAN CORPUSCULAR HGB CONC 34.9 g/dl (32-36); MEAN PLATELET VOLUME 10.2 fL (7.4-10.4); MONO % 8.6 %; NEUT % 64.9 %; PLATELET COUNT 164 K/uL (130-400); RED BLOOD COUNT 3.22 M/uL (4.2-5.4); WHITE BLOOD COUNT 7.29 K/uL (4.8-10.8)
[2017-01-24] MEDS: HEPARIN SOD 5000 UNIT/0.5 ML CARP SQ SCH ×3 (06:19→21:23)
[2017-01-24 06:40] LABS: BUN/CREATININE RATIO 9.3 (10-20); CALCIUM 7.8 mg/dl (8.5-10.1); CREATININE 1.4 mg/dl (0.60-1.20); MAGNESIUM 1.9 mg/dl (1.8-2.4); POTASSIUM 3.5 mmol/L (3.5-5.1)
--- NOTE | 2017-01-24 08:27 | DIAGNOSTIC IMAGING REPORT ---
KUB HISTORY: Colonic ileus. COMPARISON: Abdomen and pelvis CT 01/19/2017. FINDINGS: The bowel gas pattern is unremarkable. There are no dilated loops of small bowel to suggest an obstruction. No renal calculi. No ureteral calculi. No pneumoperitoneum or pneumatosis. Residual barium contrast within the colon. Right femoral hardware is again noted. IMPRESSION: Unremarkable bowel gas pattern. No evidence for bowel obstruction. Electronically signed by: Shoaib Cordero M.D. 01/24/2017 8:25 AM Dictated Date/Time: 01/24/2017 8:24 AM
[2017-01-24] MEDS: THIAMINE HCL INJ 100 MG in SYRINGE 9 ML IV SCH (08:35)
[2017-01-24] MEDS: CYANOCOBALAMIN 1000 MCG/ML VIAL IM SCH (08:35)
[2017-01-24] MEDS: FoLIC ACID INJ 1 MG in SYRINGE 9.8 ML IV SCH (08:35)
[2017-01-24] MEDS: PANTOprazole INJ 40 MG in SYRINGE 0 ML IV SCH (08:36)
[2017-01-24] MEDS: CARVEDILOL 3.125 MG TAB PO SCH ×2 (08:36→20:21)
[2017-01-24] MEDS: VITAMIN B COMPLEX TAB PO SCH (08:44)
[2017-01-24] MEDS: CALCIUM 600MG + VIT D 400 IU TAB PO SCH ×2 (08:44→20:27)
[2017-01-24] MEDS: CHOLECALCIFEROL 1000 INTER.UNIT TAB PO SCH ×2 (08:44→20:27)
[2017-01-24] MEDS: FLUCONAZOLE 100 MG TAB PO SCH (08:44)
[2017-01-24] MEDS: MAGNESIUM CHLORIDE 64MG DELAYED REL TAB PO SCH ×2 (08:44→20:27)
[2017-01-24] MEDS: MULTIVITAMINS W/MINERALS 15ML UDP PO SCH (08:44)
--- NOTE | 2017-01-24 09:42 | Surgery Progress Note ---
Surgery Progress Note Date of Service Jan 24, 2017. Subjective Post OP Day: HD # 9 + bowel movement, + diet (ate some but not much of her breakfast this morning), + feeling well, + flatus, No complaints, No nausea, No vomiting Patient was started on TPN yesterday via picc line Objective Vital Signs: Date Time Temp Pulse Resp B/P Pulse Ox O2 Delivery O2 Flow Rate FiO2 01/24/17 07:45 Room Air 01/24/17 07:14 36.5 66 16 151/76 99 Room Air 01/24/17 04:43 36.5 70 20 151/74 98 Room Air 01/24/17 04:16 Room Air 01/24/17 00:44 Room Air 01/23/17 23:08 36.9 77 16 152/82 97 01/23/17 20:24 95 Room Air 01/23/17 19:29 37.0 66 16 162/83 98 Room Air 01/23/17 16:00 95 Room Air 01/23/17 15:54 36.5 70 16 151/79 98 Room Air 01/23/17 12:00 97 Room Air 01/23/17 11:00 36.5 66 16 149/85 98 Room Air General Appearance: WD/WN, no apparent distress Head: normocephalic, atraumatic Neck: trachea midline Respiratory/Chest: lungs clear, normal breath sounds, no respiratory distress, no accessory muscle use Cardiovascular: regular rate, rhythm, no murmur Abdomen: normal bowel sounds, non tender, non distended, soft, no organomegaly , no pulsatile mass Laboratory Results: Results Past 24 Hours Test 01/23/17 11:42 01/23/17 18:51 01/24/17 05:55 01/24/17 07:37 Range/Units Bedside Glucose 88 131 149 70-90 mg/dl White Blood Count 7.29 4.8-10.8 K/uL Red Blood Count 3.22 4.2-5.4 M/uL Hemoglobin 9.5 12.0-16.0 g/dL Hematocrit 27.2 37-47 % Mean Corpuscular Volume 84.5 80-100 fL Mean Corpuscular Hemoglobin 29.5 25-34 pg Mean Corpuscular Hemoglobin Concent 34.9 32-36 g/dl Platelet Count 164 130-400 K/uL Mean Platelet Volume 10.2 7.4-10.4 fL Neutrophils (%) (Auto) 64.9 % Lymphocytes (%) (Auto) 18.8 % Monocytes (%) (Auto) 8.6 % Eosinophils (%) (Auto) 4.1 % Basophils (%) (Auto) 0.4 % Neutrophils # (Auto) 4.73 1.4-6.5 K/uL Lymphocytes # (Auto) 1.37 1.2-3.4 K/uL Monocytes # (Auto) 0.63 0.11-0.59 K/uL Eosinophils # (Auto) 0.30 0-0.5 K/uL Basophils # (Auto) 0.03 0-0.2 K/uL RDW Standard Deviation 40.5 36.4-46.3 fL RDW Coefficient of Variation 13.3 11.5-14.5 % Immature Granulocyte % (Auto) 3.2 % Immature Granulocyte # (Auto) 0.23 0.00-0.02 K/uL Sodium Level 140 136-145 mmol/L Potassium Level 3.5 3.5-5.1 mmol/L Chloride Level 106 98-107 mmol/L Carbon Dioxide Level 25 21-32 mmol/L Anion Gap 9.0 3-11 mmol/L Blood Urea Nitrogen 13 7-18 mg/dl Creatinine 1.40 0.60-1.20 mg/dl Est Creatinine Clear Calc Drug Dose 30.4 ml/min Estimated GFR () 42.8 Estimated GFR (Non- 36.9 BUN/Creatinine Ratio 9.3 10-20 Random Glucose 161 70-99 mg/dl Calcium Level 7.8 8.5-10.1 mg/dl Phosphorus Level 3.0 2.5-4.9 mg/dl Magnesium Level 1.9 1.8-2.4 mg/dl Triglycerides Level 175 0-150 mg/dl Assessment & Plan Mild Colonic Ileus- Resolved - +Bowel function - abdominal examination soft, nontender, no rigidity or guarding - Vital signs stable -KUB showing normal bowel gas pattern Altered Mental status- improved patient alert and oriented UTI- [place] Sepsis- resolved Gallstones without Cholecystitis Plan: No surgical intervention required at this time. Abdomen soft and benign. Positive bowel function Mental status much improved since previous examination Continue TPN and diet as tolerated Our services signing off, thank you for consultation and involving us in the care of this patient. Call with any concerns I have discussed this patient with Dr. Calderón who is in agreement with above stated findings and treatment plan.
--- NOTE | 2017-01-24 10:24 | Pharmacy Progress Note ---
Parenteral Nutrition Consult Date of Service Jan 24, 2017. Scope Pharmacy was consulted on 01/23/17 to manage parenteral nutrition orders for this patient. Subjective The patient is currently on day #2 of central parenteral nutrition for failure to thrive/lack of PO intake per MD. Objective Height (Feet): 5 Height (Inches): 4.00 Weight (Kilograms): 60.400 Diet: Regular, Mechanical Soft Vascular Access: PICC Intake & Output (Last 72 Hr): 01/22/17 01/23/17 01/24/17 08:00 08:00 08:00 Intake Total 2160 ml 2737 ml 2968 ml Output Total 1300 ml 2200 ml 1500 ml Balance 860 ml 537 ml 1468 ml Additional Fluid Losses/Gains: Patient was receiving D51/2NS @ 100 cc/hr until 1000 this AM. Fluids D/C'd at that time. Laboratory Data (Last 24 Hr): Test 01/24/17 05:55 Blood Urea Nitrogen 13 mg/dl (7-18) Calcium Level 7.8 mg/dl (8.5-10.1) Carbon Dioxide Level 25 mmol/L (21-32) Chloride Level 106 mmol/L (98-107) Creatinine 1.40 mg/dl (0.60-1.20) Magnesium Level 1.9 mg/dl (1.8-2.4) Phosphorus Level 3.0 mg/dl (2.5-4.9) Potassium Level 3.5 mmol/L (3.5-5.1) Random Glucose 161 mg/dl (70-99) Sodium Level 140 mmol/L (136-145) Triglycerides Level 175 mg/dl (0-150) Recent Pertinent Medications: Patient had been ordered IV thiamine push, IV folic acid push, PO MVI liquid and IV PPI push. For convenience: HOLD thiamine, folic acid and MVI and put in TPN Continue PPI IV due to IV incompatibility in TPN Nutrition Assessment Please refer to the Notes section of the EMR for the most recent imaging services director note. Assessment 76 y/o with decreased PO intake prior to and during this admission Daughter would like to trial TPN Able to and currently taking PO, however decrease PO intake currently Chronic hypernatremia and JAJA this admission to consider when ordering electrolytes in TPN Positive fluid balance Plan For day #2 of PN administration, the following will be ordered: Macronutrients Amino acids 90 grams/day Dextrose 225 grams/day Lipids 0 grams/day Micronutrients Combined electrolytes 20 mL - contains 35 mEq Na, 20 meq K, 4.5 mEq Ca, 5 mEq Mg, 35 mEq Cl, 29.5 mEq acetate per 20 mL Sodium phosphate 10 MMol Sodium chloride 0 mEq Sodium acetate 0 mEq Potassium phosphate 21 mMol Potassium chloride 20 mEq Potassium acetate 0 mEq Magnesium sulfate 8.12 mEq Calcium gluconate 0 mEq Multivitamins 10 mL Trace Elements 1 mL Additional additives: Folic acid 1 mg, Thiamine 100 mg Total volume 1275 mL (MINIMUM VOLUME) to be infused over 24 hrs will provide 1125 kcal/day Labs, as indicated, will be ordered per protocol Pharmacy will continue to follow and adjust parenteral nutrition orders on a daily basis. Thank you for allowing us to participate in the care of this patient.
--- NOTE | 2017-01-24 11:52 | Psychiatric Progress Notes ---
Psychiatric Progress Note Date of Service Jan 24, 2017. Notes ID: Patient reviewed with liaison nurse. Initial consult by Dr. Doty completed on 01/23/17, recommend monitoring of delirium associated with dementia and FTT. CC: "I'm better today" HPI: patient hasn't been particularly interactive with liaison nurses, felt that some of her pretending to sleep was intentional. Initially was resistant to work up necessary for TPN but taking without problems. No reports of combativeness. She denies depression/mood issues, remains a tad confused as not wearing glasses but was able to make valid guess at orientation questions when told not Tuesday. She seemed to have mild hearing difficulty. ROS: patient denied N/V/sedation/lockwood MSE: alert, cooperative but limited eye contact, short attention span, denies SI /HI/lockwood. Imp: same as initial consult--MSE appears to be improving Plan: service can enlist family as needed to understand baseline, appears plan is for rehab services and she states she is agreeable agree no clear indication for SSRI acutely, particularly when recent delirium
[2017-01-24] MEDS ORDERED: CUSTOM CENTRAL PN 1 BAG IV SCH (16:00)
--- NOTE | 2017-01-24 16:06 | Progress Note ---
Internal Med Progress Note Date of Service: Jan 24, 2017. Provider Documentation: SUBJECTIVE: seemed much more alert today than usual could tell her name and knows she is in hospital and this is january trying to eat lunch denies pain says she is ok OBJECTIVE: Vital Signs-as noted below Exam: General-alert and awake. oriented Neck-no neck masses Lungs-cta b/l no added sounds Heart-s1 and s2 heard no murmurs Abdomen-soft bowel sounds no distension non tender Extremities-no edema no erythema Neuro-alert and awake and oriented moves extremities Lab data as noted below. ASSESSMENT & PLAN: 76F presented with confusion and lethargy. Initially thought from hypernatremia but mental status didn't improved though hypernatremia improved.Some improvement after starting on iv thiamine..Seen by nephrology and neurology and psychiatry. Possible failure to thrive as patient doesn't want to eat. Family thinks some problem with swallowing but had barium swallow at [place] which was unremarkable.Consulted GI but no plan for egd until mental status improves and No plan for feeding tube. Family requested to start on TPN and see if patient improves. Started TPN yesterday and seems somewhat better today. No plan forn any antidepressants at ths time as per psychiatry.Continue to monitor and further decisions based on patient response. Metabolic Encephalopathy? No h/o Dementia.condition has been getting worse for the last few weeks as per the daughters but was stable 4 weeks ago Hypernatremia-improved 'repeat ct head unremarkable folate levels low, vitamin b12 borderline and thiamine levels pending Replacing vitamins consulted neurology and appreciate inputs mental status seemed somewhat improved with patient being more awake now but doesn't interact much and refusing to eat Failure to Thrive? d/w daughter - wants to try TPN and see.Will aslo check with GI if patient qualifies for feeding tube s/p picc line and started on tpn consulted psychiatry for depression and appreciate inputs Questionable mobitz 2 on tele strip two episode ekg ok consult cardiology in am for any inputs ACUTE KIDNEY INJURY Secondary to DEHYDRATION due to poor oral intake on fluids will f/u labs cr 1.4 baseline? Elevated lactic acid 01/19/17 hypothermia sepsis? could be from hyperventilation in deconditioned patient empirically started on iv vanco and Zosyn and fluids cx no growth ct abd/pelvis mild colonic ileus Hemoccult negative ischemic bowel-unlikely as abdomen seems benign and Hemoccult negative no cholecystitis on ct scan or US lactic acid normalized appreciate surgical inputs stopped abx f/u kub unremarkable stable Anemia acute on chronic? folate deficiency hb 7.4 today Hemoccult negative question of coffee ground emesis on ppi drip s/p 2 units prbc hb improved to 9.9 today seems second vomitus was yellowish color stopped ppi drip will f/u labs HYPERNATREMIA: improved with fluids 'appreciate nephrology inputs Electrolytes Imbalance replaced will f/u labs Dysphagia with Vomiting Difficulty in swallowing for a while Has vomiting associated with it Barium swallow in [employer]-unremarkable GI holding on EGD until mental status improves on mechanical soft diet was not eating s/p picc line started TPN 01/23/17 seems trying to eat lunch today MILD ELEVATION OF TROPONIN : normalized POSSIBLE UTI : UA grossly positive was on Rocephin cx unremarkable abx stopped Code status DNR d/W daughter and patient is DNR Dvt px hep sub q scds. Disposition To be determined Family notified patient condition Vital Signs: Date Time Temp Pulse Resp B/P Pulse Ox O2 Delivery O2 Flow Rate FiO2 01/24/17 16:00 98 Room Air 01/24/17 15:36 37.1 75 16 148/82 98 Room Air 01/24/17 12:00 Room Air 01/24/17 10:58 36.9 66 16 149/87 99 Room Air 01/24/17 10:56 66 99 01/24/17 07:45 Room Air 01/24/17 07:14 36.5 66 16 151/76 99 Room Air 01/24/17 04:43 36.5 70 20 151/74 98 Room Air 01/24/17 04:16 Room Air 01/24/17 00:44 Room Air 01/23/17 23:08 36.9 77 16 152/82 97 01/23/17 20:24 95 Room Air Lab Results: Results Past 24 Hours Test 01/24/17 05:55 01/24/17 07:37 01/24/17 11:23 01/24/17 15:34 Range/Units White Blood Count 7.29 4.8-10.8 K/uL Red Blood Count 3.22 4.2-5.4 M/uL Hemoglobin 9.5 12.0-16.0 g/dL Hematocrit 27.2 37-47 % Mean Corpuscular Volume 84.5 80-100 fL Mean Corpuscular Hemoglobin 29.5 25-34 pg Mean Corpuscular Hemoglobin Concent 34.9 32-36 g/dl Platelet Count 164 130-400 K/uL Mean Platelet Volume 10.2 7.4-10.4 fL Neutrophils (%) (Auto) 64.9 % Lymphocytes (%) (Auto) 18.8 % Monocytes (%) (Auto) 8.6 % Eosinophils (%) (Auto) 4.1 % Basophils (%) (Auto) 0.4 % Neutrophils # (Auto) 4.73 1.4-6.5 K/uL Lymphocytes # (Auto) 1.37 1.2-3.4 K/uL Monocytes # (Auto) 0.63 0.11-0.59 K/uL Eosinophils # (Auto) 0.30 0-0.5 K/uL Basophils # (Auto) 0.03 0-0.2 K/uL RDW Standard Deviation 40.5 36.4-46.3 fL RDW Coefficient of Variation 13.3 11.5-14.5 % Immature Granulocyte % (Auto) 3.2 % Immature Granulocyte # (Auto) 0.23 0.00-0.02 K/uL Sodium Level 140 136-145 mmol/L Potassium Level 3.5 3.5-5.1 mmol/L Chloride Level 106 98-107 mmol/L Carbon Dioxide Level 25 21-32 mmol/L Anion Gap 9.0 3-11 mmol/L Blood Urea Nitrogen 13 7-18 mg/dl Creatinine 1.40 0.60-1.20 mg/dl Est Creatinine Clear Calc Drug Dose 30.4 ml/min Estimated GFR () 42.8 Estimated GFR (Non- 36.9 BUN/Creatinine Ratio 9.3 10-20 Random Glucose 161 70-99 mg/dl Calcium Level 7.8 8.5-10.1 mg/dl Phosphorus Level 3.0 2.5-4.9 mg/dl Magnesium Level 1.9 1.8-2.4 mg/dl Triglycerides Level 175 0-150 mg/dl Bedside Glucose 149 116 117 70-90 mg/dl Test 01/24/17 18:08 Range/Units Bedside Glucose 116 70-90 mg/dl
[2017-01-25] VITALS (9 sets, daily range): BP systolic 128–160; BP diastolic 70–86; PULSE 50–81; TEMP 36.4–36.9; O2SAT 96–98
[2017-01-25] MEDS: HEPARIN SOD 5000 UNIT/0.5 ML CARP SQ SCH ×3 (05:44→20:41)
[2017-01-25] MEDS: CHOLECALCIFEROL 1000 INTER.UNIT TAB PO SCH ×2 (08:09→20:41)
[2017-01-25] MEDS: CALCIUM 600MG + VIT D 400 IU TAB PO SCH ×2 (08:09→20:41)
[2017-01-25] MEDS: MAGNESIUM CHLORIDE 64MG DELAYED REL TAB PO SCH ×2 (08:09→20:41)
[2017-01-25] MEDS: VITAMIN B COMPLEX TAB PO SCH (08:09)
[2017-01-25] MEDS: CARVEDILOL 3.125 MG TAB PO SCH ×2 (08:09→20:32)
[2017-01-25 08:10] LABS: BUN/CREATININE RATIO 15.8 (10-20); CALCIUM 8.2 mg/dl (8.5-10.1); CREATININE 1.4 mg/dl (0.60-1.20); MAGNESIUM 2.2 mg/dl (1.8-2.4); POTASSIUM 3.6 mmol/L (3.5-5.1)
[2017-01-25] MEDS: CYANOCOBALAMIN 1000 MCG/ML VIAL IM SCH (08:10)
[2017-01-25 08:19] LABS: PHOSPHORUS 4.4 mg/dl (2.5-4.9)
[2017-01-25] MEDS ORDERED: POTASSIUM CHLORIDE PWD 20 MEQ PACK PO ONE (10:01)
--- NOTE | 2017-01-25 10:34 | Progress Note ---
Internal Med Progress Note Date of Service: Jan 25, 2017. Provider Documentation: SUBJECTIVE: Patient is better today. Awake, alert, oriented to place, person, but not to time. Answers only when she wants too otherwise refuses to reply. Knows where her home is, gave me details of when she ate, had a BM. Denies any pain anywhere. No chest pain, abd pain, nausea, fever, chills. Decreased appetite Per RN, her appetite is poor, minimal PO intake and ends up bringing up whatever she eats within few minutes, gags too while eating OBJECTIVE: Vital Signs-as noted below Exam: General-AAOX 2, no distress Neck-no neck masses Lungs-cta b/l no added sounds Heart-s1 and s2 heard no murmurs Abdomen-soft bowel sounds no distension non tender Extremities-no edema no erythema Neuro-Grossly no focal deficits Lab data as noted below. ASSESSMENT & PLAN: ASSESSMENT & PLAN : 76F presented with confusion and lethargy. Initially thought from hypernatremia but mental status didn't improved though hypernatremia improved.Some improvement after starting on iv thiamine..Seen by nephrology and neurology and psychiatry. Possible failure to thrive as patient doesn't want to eat. Family thinks some problem with swallowing but had barium swallow at [place] which was unremarkable.Consulted GI but no plan for egd until mental status improves and No plan for feeding tube. Family requested to start on TPN and see if patient improves. Started TPN by Dr Beltrán on 01/24/17. ALTERED MENTAL STATUS: Improved D/D considered: Metabolic encephalopathy, Delirium with possible dementia ( though no official diagnosis prior to admission), Hypernatremia contributing. Unclear etiology, but much improved. Awake, alert, oriented x 2, but answers only when she wants to and only to certain questions. I feel there is a psychiatric component as patient clearly refuses to answer few questions and at times refuses to eat -Work up- Thiamine - low, < 7, Folate- low, Vitamin B12- normal, TSH- normal , RPR, Lymes- negative, Hypernatremia- resolved, Repeat CT head x 2 negative. -Supplement folic acid, thiamine -Neurology, Psychiatry inputs appreciated. Neurology signed off. Per psychiatry , this could be delirium with possible dementia, but at this point no indication of antidepressants given possible delirium which can worsen. POSSIBLE DYSPHAGIA /FAILURE TO THRIVE Patient has been going down hill since her hip fracture months ago, for many weeks prior to admission has not been eating. Throughout hospital course, has at times refused to eat. Per RN, does gag while eating, does tend to bring up greenish, bilous secretions after eating, not much swallowing issues though. Has had this issue for few weeks prior to admission, had Barium swallow at [facility]- negative -Need to investigate to look for a mechanical cause. To some extent, her refusing to eat ?? psychological component could be playing a role too. -Will get speech swallow evaluation -On mechanical soft diet. -Discussed with GI - who will re evaluate to look into this. -On TPN started on 01/23/17; Had refused cor safe , feeding tube. MOBITZ TYPE 2 BLOCK Noted on tele strip for 20 seconds. 2 episodes on 01/24/17 -Cardiology consulted ACUTE KIDNEY INJURY - Improved Secondary to DEHYDRATION due to poor oral intake -IV fluids per nephrology HYPERNATREMIA- Resolved Came with Na 151--> resolved -On IV Fluids -Appreciate nephrology inputs ELEVATED LACTIC ACID - Resolved Noted to be elevated on 01/19/17 which normalized -CT scan abd/pelvis- mild colonic ileus, US gall bladder- gall stone filled GB, No cholecystitis, FOBT negative. Follow up KUB- unremarkable -Appreciate surgery inputs- no surgical intervention recommended ACUTE ON CHRONIC ANEMIA - HB dropped to 7.4 with a questionable coffee ground emesis few days ago -S/P 2 units PRBCs since admission -Work up- FOBT - negative, CT scan abd/pelvis- as above MILD ELEVATION OF TROPONIN : -Trended down and normalized -Echo- EF 60-65%, Gd I diastolic dysfunction, Trace AR, No wall motion abnormalities POSSIBLE UTI : UA grossly positive - Grew yenni -S/P IV rocephin which was discontinued -Asymptomatic NUTRITION -On mechanical soft diet- minimal intake -On IV TPN CODE STATUS DNR Dr Beltrán d/W daughter and patient is DNR DVT PROPHYLAXIS -Hep sub q -SCDs DISPOSITION To be determined- Will likely need rehab Continue with tele monitoring Vital Signs: Date Time Temp Pulse Resp B/P Pulse Ox O2 Delivery O2 Flow Rate FiO2 01/25/17 07:55 36.8 73 18 138/75 98 Room Air 01/25/17 04:00 96 Room Air 01/25/17 04:00 36.7 76 20 148/80 Room Air 99.0 01/25/17 00:00 96 Room Air 01/25/17 00:00 36.7 73 20 134/73 Room Air 99.0 01/24/17 20:00 96 Room Air 01/24/17 19:46 36.9 78 16 144/83 99 Nasal Cannula 2.0 01/24/17 16:00 98 Room Air 01/24/17 15:36 37.1 75 16 148/82 98 Room Air 01/24/17 12:00 Room Air 01/24/17 10:58 36.9 66 16 149/87 99 Room Air 01/24/17 10:56 66 99 Lab Results: Results Past 24 Hours Test 01/24/17 11:23 01/24/17 15:34 01/24/17 18:08 01/25/17 00:23 Range/Units Bedside Glucose 116 117 116 124 70-90 mg/dl Test 01/25/17 05:48 01/25/17 06:26 Range/Units Bedside Glucose 99 70-90 mg/dl Sodium Level 144 136-145 mmol/L Potassium Level 3.6 3.5-5.1 mmol/L Chloride Level 107 98-107 mmol/L Carbon Dioxide Level 29 21-32 mmol/L Anion Gap 8.0 3-11 mmol/L Blood Urea Nitrogen 22 7-18 mg/dl Creatinine 1.40 0.60-1.20 mg/dl Est Creatinine Clear Calc Drug Dose 30.4 ml/min Estimated GFR () 42.8 Estimated GFR (Non- 36.9 BUN/Creatinine Ratio 15.8 10-20 Random Glucose 103 70-99 mg/dl Calcium Level 8.2 8.5-10.1 mg/dl Ionized Calcium 1.14 1.12-1.32 mmol/l Phosphorus Level 4.4 2.5-4.9 mg/dl Magnesium Level 2.2 1.8-2.4 mg/dl Triglycerides Level 217 0-150 mg/dl
--- NOTE | 2017-01-25 12:50 | Gastroenterology Progress Note ---
Progress Note Date of Service: Jan 25, 2017 Subjective Pt evaluation today including: conversation w/ patient, physical exam, chart review, lab review, review of inpatient medication list I was asked to evaluated pt again for dysphagia. RN reported her to be coughing up food and pills. Pt appear awake, oriented x 3 laying in bed. She denies any problem w her swallowing, or coughing, also no dysphagia. She refused to take a sip of water for me, states she's "tired, and had been working all week long". She is agreeable to a speech evaluation. Review of Systems Constitutional: No fever ENT: + problem reported (See HPI for dysphagia) Respiratory: No cough, No shortness of breath Abdomen: No nausea, No pain, No vomiting Medications Current Inpatient Medications Medications (Trade) Dose Ordered Sig/Donald Route Start Time Stop Time Status Last Admin Dose Admin Acetaminophen (Tylenol Tab) 650 mg Q4H PRN PO 01/15/17 03:15 02/14/17 03:14 Future Hold Al Hydrox/Mg Hydrox/Simethicone (Maalox Max Susp) 15 ml Q4H PRN PO 01/15/17 03:15 02/14/17 03:14 Future Hold Magnesium Hydroxide (Milk Of Magnesia Susp) 30 ml Q12H PRN PO 01/15/17 03:15 02/14/17 03:14 Future hold Ondansetron HCl (Zofran Inj) 4 mg Q6H PRN IV 01/15/17 03:15 02/14/17 03:14 01/19/17 10:23 4 MG Nitroglycerin (Nitrostat Tab) 0.4 mg UD PRN SL 01/15/17 03:15 02/14/17 03:14 Polyethylene (Miralax Powder Packet) 17 gm DAILY PRN PO 01/15/17 03:15 02/14/17 03:14 Carvedilol (Coreg Tab) 3.125 mg BID PO 01/15/17 09:00 02/14/17 08:59 01/25/17 08:09 3.125 MG Ferrous Sulfate (Feosol Tab) 325 mg DAILY PO 01/15/17 09:00 02/14/17 08:59 Future Hold 01/15/17 07:37 325 MG Senna (Senokot Tab) 17.2 mg DAILY PO 01/15/17 09:00 02/14/17 08:59 Future Hold 01/15/17 07:37 17.2 MG Tramadol HCl (Ultram Tab) 50 mg Q8H PRN PO 01/15/17 03:15 02/14/17 03:14 Future Hold Miscellaneous Information (Order Awaiting Action) 1 ea QS N/A 01/15/17 08:00 02/14/17 07:59 Oxycodone HCl 10 mg 10 mg Q8 PRN PO 01/15/17 03:15 02/14/17 03:14 Future Hold Folic Acid/Syringe (Folvite Inj/ Syringe) 10 ml @ 5 mls/min DAILY IV 01/19/17 18:00 02/18/17 17:59 Future Hold 01/24/17 08:35 5 MLS/MIN Cyanocobalamin 1000 mcg 1,000 mcg DAILY IM 01/19/17 18:00 02/18/17 17:59 01/25/17 08:10 1,000 MCG Thiamine HCl/ Syringe (Vitamin B-1 Inj/ Syringe) 10 ml @ 2 mls/min DAILY IV 01/19/17 18:00 02/18/17 17:59 Future Hold 01/24/17 08:35 2 MLS/MIN Vitamin B Complex (Vitamin B Complex) 1 tab QAM PO 01/21/17 09:00 02/20/17 08:59 01/25/17 08:09 1 TAB Multivitamins Therapeutic (Cerovite Liquid) 15 ml QAM PO 01/21/17 09:00 02/20/17 08:59 Future Hold 01/22/17 08:15 15 ML Heparin Sodium (Porcine) (Heparin Sq 5000 Unit/0.5ml) 5,000 unit Q8 SQ 01/20/17 22:00 02/19/17 21:59 01/25/17 05:44 5,000 UNIT Magnesium Chloride (Slow-Mag Tab) 64 mg BID PO 01/22/17 09:00 02/21/17 08:59 01/22/17 21:00 64 MG Cholecalciferol (Vitamin D Tab) 2,000 inter.unit BID PO 01/22/17 21:00 02/21/17 20:59 01/22/17 21:19 2,000 INTER.UNIT Calcium/Vitamin D (Caltrate Plus Tab) 1 tab BID PO 01/22/17 21:00 02/21/17 20:59 01/22/17 21:00 1 TAB Miscellaneous Information (Pharmacy Tpn/ Ppn Consult Active) 1 ea UD PRN N/A 01/22/17 16:25 02/21/17 16:24 Heparin Sodium (Porcine) 5 ml 5 ml PRN PRN FLUSH 01/22/17 18:30 02/21/17 18:29 Dextrose 1,000 ml @ 0 mls/hr Q0M PRN IV 01/23/17 10:05 02/22/17 10:04 Nutrition (Parenteral) 0 ml @ 0 mls/hr TODAY@1600 IV 01/24/17 16:00 01/25/17 15:59 01/24/17 16:06 0 MLS/HR Nutrition (Parenteral) (Custom Central Pn) 0 ml @ 0 mls/hr TODAY@1600 IV 01/25/17 16:00 01/26/17 15:59 Potassium Chloride (Klor-Con Pwd) 40 meq QAM PO 01/26/17 09:00 02/25/17 08:59 Pantoprazole Sodium (Protonix Tab) 40 mg BID PO 01/25/17 21:00 02/24/17 20:59 Objective Vital Signs Date Time Temp Pulse Resp B/P Pulse Ox O2 Delivery O2 Flow Rate FiO2 01/25/17 08:00 98 Room Air 99.0 01/25/17 07:55 36.8 73 18 138/75 98 Room Air 01/25/17 04:00 96 Room Air 01/25/17 04:00 36.7 76 20 148/80 Room Air 99.0 01/25/17 00:00 96 Room Air 01/25/17 00:00 36.7 73 20 134/73 Room Air 99.0 01/24/17 20:00 96 Room Air 01/24/17 19:46 36.9 78 16 144/83 99 Nasal Cannula 2.0 01/24/17 16:00 98 Room Air 01/24/17 15:36 37.1 75 16 148/82 98 Room Air Physical Exam General Appearance: WD/WN, no apparent distress Eyes: normal inspection, PERRL, EOMI Neck: supple, no JVD, trachea midline Respiratory/Chest: no respiratory distress, no accessory muscle use, + decreased breath sounds Cardiovascular: regular rate, rhythm, no gallop, no murmur Abdomen: normal bowel sounds, non tender, soft Extremities: normal inspection, no pedal edema, no calf tenderness Neurologic/Psych: alert, normal mood/affect, oriented x 3 Skin: normal color, no jaundice, no rash Laboratory Results Last 24 Hours Test 01/24/17 15:34 01/24/17 18:08 01/25/17 00:23 01/25/17 05:48 Bedside Glucose 117 mg/dl 116 mg/dl 124 mg/dl 99 mg/dl Test 01/25/17 06:26 01/25/17 11:34 Sodium Level 144 mmol/L Potassium Level 3.6 mmol/L Chloride Level 107 mmol/L Carbon Dioxide Level 29 mmol/L Anion Gap 8.0 mmol/L Blood Urea Nitrogen 22 mg/dl Creatinine 1.40 mg/dl Est Creatinine Clear Calc Drug Dose 30.4 ml/min Estimated GFR () 42.8 Estimated GFR (Non- 36.9 BUN/Creatinine Ratio 15.8 Random Glucose 103 mg/dl Calcium Level 8.2 mg/dl Ionized Calcium 1.14 mmol/l Phosphorus Level 4.4 mg/dl Magnesium Level 2.2 mg/dl Triglycerides Level 217 mg/dl Bedside Glucose 105 mg/dl Assessment and Plan Pt is a 76 y/o female, seen today under primary hospitalist's request to re- evaluate for dysphagia. RN reported her to be coughing up food and pills. Pt's AMS has resolved but RN report intermittent confusion throughout day, pulling at IV lines. She currently appears awake, oriented x 3 laying in bed. She denies any problem w her swallowing, or coughing, also no dysphagia. She refused to take a sip of water for me, states she's "tired, and had been working all week long". She is agreeable to a speech evaluation. She had a previous esophagram on 01/11/17 (outpt) which is unremarkable. - ST evaluation and treatment - Increased Protonix to 40mg BID given bilious thick liquid reported by RN - May consider repeating swallow eval to check for aspiration - Discussed evaluation via EGD and also family had inquired about possible tube feeding placement for pt to keep up w nutrition. Pt would like to defer further invasive tests and doesn't like the idea of having tube feeding placement. I think that this is reasonable given that her dysphagia issues may be related to deconditioning after hospitalization stay and post AMS. A feeding tube (PEG) may not be all that beneficial in this situation. Primary team will discuss this w family. I performed a history and physical examination of the patient. I have discussed the patient's case, impression and plan with DINESH Sullivan on . Her note reflects my findings and plan. Consider UGI and or swallowing study. Stan Hameed MD
--- NOTE | 2017-01-25 14:21 | CARDIOLOGY CONSULTATION ---
DATE OF CONSULTATION: 01/25/2017 REASON FOR CONSULTATION: Transient Wenckebach. HISTORY OF PRESENT ILLNESS: Ms. Bateman is a 76-year-old woman who presented to [facility] on the for evaluation of change in mental status and failure to thrive. At that point, appropriate therapies were instituted. The patient was seen by gastroenterology surgery, nephrology and psychiatry on the morning of 01/24/2017. The patient was actively vomiting and on telemetry monitoring, she had a transient brief episode of Mobitz type 1 heart block. This was very brief in nature. The patient denied any associated symptoms with this, specifically denied any associated chest pain, shortness of breath, palpitations, lightheadedness, dizziness, or syncope. She states she was just vomiting. Otherwise, she denies any other cardiac complaints and states that she thinks that she is fine. PAST SURGICAL HISTORY: Trochanteric fracture repair with implant. MEDICAL ILLNESSES: 1. Chronic renal insufficiency. 2. Unstable gait. 3. Hypertension. 4. Malnutrition. 5. Hypernatremia. FAMILY HISTORY: Noncontributory. SOCIAL HISTORY: Denies any alcohol, tobacco or recreational drug use. She is retired. REVIEW OF SYSTEMS: As per HPI, all other review of systems reviewed and negative at this time. ALLERGIES: No known drug allergies. MEDICATIONS: 1. Currently TPN. 2. Slow magnesium tablets b.i.d. 3. SubQ heparin. 4. Coreg 3.125 mg p.o. b.i.d. PHYSICAL EXAMINATION: VITALS: Temperature 36.8, pulse 73, respiratory rate 12, blood pressure 138/75. GENERAL: Awake, alert, oriented x3, in no acute distress. HEENT: Normocephalic, atraumatic. Pupils equal, round, and reactive to light and accommodation. Extraocular muscles intact. Anicteric sclerae. Moist mucous membranes. NECK: No JVD, no bruit. CARDIOVASCULAR: Regular. No S4. Normal S1 and S2. No S3. No murmurs, rubs or gallops. PULMONARY: Clear to auscultation bilaterally. No rales, rhonchi, or wheezing. ABDOMEN: Bowel sounds x4, soft. No rebound, guarding, tenderness. No organomegaly. EXTREMITIES: No clubbing, cyanosis or edema. +2 pedal pulses bilaterally. SKIN: Warm and dry. TEST RESULTS: A 2D echocardiogram performed 01/15/2017 was read as small left ventricular cavity size, normal LV systolic function and wall motion, EF 60-65%, grade 1 diastolic dysfunction, mild aortic valve sclerosis without stenosis, trace aortic regurgitation, no pericardial effusion. Review of telemetry monitoring shows a very brief transient episode of Mobitz type 1 heart block on 01/24/2017 at approximately 8:30 a.m. Otherwise, unremarkable telemetry. IMPRESSION: Brief transient Wenckebach in the setting of increased vagal tone with vomiting. RECOMMENDATIONS: Given the clinical context and the very benign and brief nature of the arrhythmia, no further cardiac testing or intervention is necessary at this time. The patient has been otherwise normal sinus rhythm on monitor. No medications will be added, no reason to continue monitoring from a cardiac standpoint. The one thing I will do is add some potassium supplementation.
[2017-01-25] MEDS ORDERED: CUSTOM CENTRAL PN 1 BAG IV SCH (16:00)
[2017-01-25] MEDS: PANTOprazole SOD 40 MG TAB PO SCH (20:32)
[2017-01-26] VITALS (8 sets, daily range): BP systolic 123–145; BP diastolic 70–79; PULSE 75–85; TEMP 36.9–37.2; O2SAT 91–98
[2017-01-26] MEDS: HEPARIN SOD 5000 UNIT/0.5 ML CARP SQ SCH ×3 (05:37→21:54)
[2017-01-26 06:48] LABS: BUN/CREATININE RATIO 22.1 (10-20); CALCIUM 7.7 mg/dl (8.5-10.1); CREATININE 1.4 mg/dl (0.60-1.20); MAGNESIUM 2.3 mg/dl (1.8-2.4); PHOSPHORUS 4.3 mg/dl (2.5-4.9); POTASSIUM 3.6 mmol/L (3.5-5.1)
[2017-01-26 06:54] LABS: HEMATOCRIT 26.3 % (37-47); MEAN CELL VOLUME 88.3 fL (80-100); MEAN CORPUSCULAR HEMOGLOBIN 29.5 pg (25-34); MEAN CORPUSCULAR HGB CONC 33.5 g/dl (32-36); MEAN PLATELET VOLUME 10.1 fL (7.4-10.4); PLATELET COUNT 225 K/uL (130-400); RED BLOOD COUNT 2.98 M/uL (4.2-5.4); WHITE BLOOD COUNT 7.52 K/uL (4.8-10.8)
[2017-01-26] MEDS ORDERED: POTASSIUM CHLORIDE 20 MEQ/15 ML UDC PO ONE (08:15)
[2017-01-26] MEDS: POTASSIUM CHLORIDE PWD 20 MEQ PACK PO SCH (09:00)
[2017-01-26] MEDS ORDERED: PANTOprazole SOD 40 MG TAB PO SCH (09:00)
[2017-01-26] MEDS: MAGNESIUM CHLORIDE 64MG DELAYED REL TAB PO SCH ×2 (09:00→21:53)
[2017-01-26] MEDS: CHOLECALCIFEROL 1000 INTER.UNIT TAB PO SCH ×2 (09:00→21:53)
[2017-01-26] MEDS: VITAMIN B COMPLEX TAB PO SCH (09:00)
[2017-01-26] MEDS: CALCIUM 600MG + VIT D 400 IU TAB PO SCH ×2 (09:00→21:54)
--- NOTE | 2017-01-26 11:02 | Progress Note ---
Internal Med Progress Note Date of Service: Jan 26, 2017. Provider Documentation: SUBJECTIVE: Patient is sleepy today. Does answer few questions, but not eating- says she doesnt feel like Difficult to get her to eat her meals- continues to have minimal intake Denies any pain anywhere. No chest pain, abd pain, nausea, fever, chills. Decreased appetite. Per RN, her appetite is poor, minimal PO intake and ends up bringing up whatever she eats within few minutes, gags too while eating OBJECTIVE: Vital Signs-as noted below Exam: General-AAOX 2, no distress Neck-no neck masses Lungs-cta b/l no added sounds Heart-s1 and s2 heard no murmurs Abdomen-soft bowel sounds no distension non tender Extremities-no edema no erythema Neuro-Grossly no focal deficits Lab data as noted below. ASSESSMENT & PLAN: ASSESSMENT & PLAN : 76F presented with confusion and lethargy. Initially thought from hypernatremia but mental status didn't improved though hypernatremia improved.Some improvement after starting on iv thiamine..Seen by nephrology and neurology and psychiatry. Possible failure to thrive as patient doesn't want to eat. Family thinks some problem with swallowing but had barium swallow at [place] which was unremarkable.Consulted GI but no plan for egd until mental status improves and No plan for feeding tube. Family requested to start on TPN and see if patient improves. Started TPN by Dr Beltrán on 01/24/17. ALTERED MENTAL STATUS: Improved D/D considered: Metabolic encephalopathy, Delirium with possible dementia ( though no official diagnosis prior to admission), Hypernatremia contributing. Unclear etiology, but much improved. Awake, alert, oriented x 2, but answers only when she wants to and only to certain questions. I feel there is a psychiatric component as patient clearly refuses to answer few questions and refuses to eat -Work up- Thiamine - low, < 7, Folate- low, Vitamin B12- normal, TSH- normal , RPR, Lymes- negative, Hypernatremia- resolved, Repeat CT head x 2 negative. -Supplement folic acid, thiamine through TPN -Neurology, Psychiatry inputs appreciated. Neurology signed off. Per psychiatry , this could be delirium with possible dementia, but at this point no indication of antidepressants given possible delirium which can worsen. POSSIBLE DYSPHAGIA /FAILURE TO THRIVE Patient has been going down hill since her hip fracture months ago, for many weeks prior to admission has not been eating. Throughout hospital course, has at times refused to eat. Per RN, does gag while eating, does tend to bring up greenish, bilous secretions after eating, not much swallowing issues though. Has had this issue for few weeks prior to admission, had Barium swallow at [facility]- negative -Need to investigate to look for a mechanical cause. To some extent, her refusing to eat ?? psychological component could be playing a role too. -Speech swallow evaluation --> Video swallow test scheduled for today -On mechanical soft diet- minimal intake -On TPN started on 01/23/17; Had refused cor safe , feeding tube. -Discussed with GI- who had a discussion with patient- refusing feeding tube and may not be beneficial at this point. Thinks this could be secondary to recent acute AMS, No intervention at this point per GI S/P TRANSIENT WENCKEBACH BLOCK Noted on tele strip for 20 seconds, while she vomiting , likely related to it with increased vagal tone (noted on 02/03/17) -Cardiology consulted - likely related to vomiting, no intervention or further cardiac monitoring indicated ACUTE KIDNEY INJURY - Improved Secondary to DEHYDRATION due to poor oral intake -S/P IVF -On TPN now HYPERNATREMIA- Came with Na 151--> resolved--> 148 today -Minimal PO intake -S/P IVF -Will increase volume of TPN to 85 cc/hour -Nephrology + ELEVATED LACTIC ACID - Resolved Noted to be elevated on 01/19/17 which normalized -CT scan abd/pelvis- mild colonic ileus, US gall bladder- gall stone filled GB, No cholecystitis, FOBT negative. Follow up [facility]- unremarkable -Appreciate surgery inputs- no surgical intervention recommended ACUTE ON CHRONIC ANEMIA-stable now - HB dropped to 7.4 with a questionable coffee ground emesis few days ago -S/P 2 units PRBCs since admission -Work up- FOBT - negative, CT scan abd/pelvis- as above MILD ELEVATION OF TROPONIN : -Trended down and normalized -Echo- EF 60-65%, Gd I diastolic dysfunction, Trace AR, No wall motion abnormalities POSSIBLE UTI : UA grossly positive - Grew yenni -S/P IV rocephin which was discontinued -Asymptomatic NUTRITION -On mechanical soft diet- minimal intake -On IV TPN started on 01/24/17 due to poor intake/family request CODE STATUS DNR Dr Beltrán d/W daughter and patient is DNR DVT PROPHYLAXIS -Hep sub q -SCDs DISPOSITION To be determined- Will likely need rehab You saavedra. May need to send on TPN Will discuss with family about goals of care Vital Signs: Date Time Temp Pulse Resp B/P Pulse Ox O2 Delivery O2 Flow Rate FiO2 01/26/17 08:00 98 Room Air 01/26/17 07:42 36.9 78 20 136/70 95 01/26/17 00:00 96 Room Air 01/25/17 23:15 36.9 50 16 160/86 97 Room Air 01/25/17 20:31 81 135/85 01/25/17 16:00 Room Air 01/25/17 16:00 98 Room Air 01/25/17 15:55 36.4 76 20 154/77 98 01/25/17 12:00 98 Room Air 01/25/17 12:00 36.5 73 20 128/70 96 Room Air Lab Results: Results Past 24 Hours Test 01/25/17 11:34 01/25/17 17:21 01/25/17 23:58 01/26/17 05:45 Range/Units Bedside Glucose 105 110 124 70-90 mg/dl White Blood Count 7.52 4.8-10.8 K/uL Red Blood Count 2.98 4.2-5.4 M/uL Hemoglobin 8.8 12.0-16.0 g/dL Hematocrit 26.3 37-47 % Mean Corpuscular Volume 88.3 80-100 fL Mean Corpuscular Hemoglobin 29.5 25-34 pg Mean Corpuscular Hemoglobin Concent 33.5 32-36 g/dl RDW Standard Deviation 44.2 36.4-46.3 fL RDW Coefficient of Variation 14.0 11.5-14.5 % Platelet Count 225 130-400 K/uL Mean Platelet Volume 10.1 7.4-10.4 fL Sodium Level 148 136-145 mmol/L Potassium Level 3.6 3.5-5.1 mmol/L Chloride Level 112 98-107 mmol/L Carbon Dioxide Level 29 21-32 mmol/L Anion Gap 7.0 3-11 mmol/L Blood Urea Nitrogen 31 7-18 mg/dl Creatinine 1.40 0.60-1.20 mg/dl Est Creatinine Clear Calc Drug Dose 30.4 ml/min Estimated GFR () 42.8 Estimated GFR (Non- 36.9 BUN/Creatinine Ratio 22.1 10-20 Random Glucose 114 70-99 mg/dl Calcium Level 7.7 8.5-10.1 mg/dl Phosphorus Level 4.3 2.5-4.9 mg/dl Magnesium Level 2.3 1.8-2.4 mg/dl
[2017-01-26] MEDS: CYANOCOBALAMIN 1000 MCG/ML VIAL IM SCH (11:16)
[2017-01-26] MEDS: CARVEDILOL 3.125 MG TAB PO SCH ×2 (11:17→21:46)
--- NOTE | 2017-01-26 12:19 | Pharmacy Progress Note ---
Parenteral Nutrition Consult Date of Service Jan 26, 2017. [facility] was consulted on 01/23/17 to manage parenteral nutrition orders for this patient. Subjective The patient is currently on day #4 of [facility] parenteral nutrition for failure to thrive/dysphagia. Objective Height (Feet): 5 Height (Inches): 4.00 Weight (Kilograms): 61.300 Diet: Regular, Mechanical Soft Vascular Access: PICC Intake & Output (Last 72 Hr): 01/24/17 01/25/17 01/26/17 08:00 08:00 08:00 Intake Total 2968 ml 860 ml 1405 ml Output Total 1500 ml 1650 ml 2100 ml Balance 1468 ml -790 ml -695 ml Laboratory Data (Last 24 Hr): Test 01/26/17 05:45 Blood Urea Nitrogen 31 mg/dl (7-18) Calcium Level 7.7 mg/dl (8.5-10.1) Carbon Dioxide Level 29 mmol/L (21-32) Chloride Level 112 mmol/L (98-107) Creatinine 1.40 mg/dl (0.60-1.20) Magnesium Level 2.3 mg/dl (1.8-2.4) Phosphorus Level 4.3 mg/dl (2.5-4.9) Potassium Level 3.6 mmol/L (3.5-5.1) Random Glucose 114 mg/dl (70-99) Sodium Level 148 mmol/L (136-145) Recent Pertinent Medications: Item Value Date Time Potassium Chloride 40 meq 01/26/17 0900 (Klor-Con Pwd) QAM/PO Pantoprazole 40 mg 01/25/17 2100 Sodium BID/PO 01/25/172031 (Protonix Tab) Cholecalciferol 2,000 inter.unit 01/22/17 2100 (Vitamin D Tab) BID/PO Calcium/Vitamin D 1 tab 01/22/17 2100 (Caltrate Plus BID/PO Tab) Magnesium Chloride 64 mg 01/22/17 0900 (Slow-Mag Tab) BID/PO Vitamin B Complex 1 tab 01/21/17 0900 (Vitamin B QAM/PO 01/25/17 0809 Complex) Cyanocobalamin 1,000 mcg 01/19/17 1800 (Vitamin B-12 DAILY/IM 01/26/17 1116 Inj) Nutrition Assessment Please refer to the Notes section of the EMR for the most recent manager inpatient note. Assessment 01/26/17 * 76 y/o with decreased PO intake prior to and during this admission * Per nursing, patient continues to sleep/refuse most PO meds/not eat * Spoke with MD * Plan for today is to discuss goals of care with family * Pt has history of chronic hypernatremia and JAJA --> sodium has been creeping up over the last 72 hours * Hypernatremia likely related to decrease in fluids --> increase volume of TPN and remove excess NA and reevaluate on day-day basis * Pt has been advanced to goal without refeeding or major electrolyte imbalances * Further notes will be placed if any major changes are made Plan For day #4 of PN administration, the following will be ordered: Macronutrients Amino acids 90 grams/day Dextrose 275 grams/day Lipids 0 grams/day Micronutrients Combined electrolytes 0 mL - contains 35 mEq Na, 20 meq K, 4.5 mEq Ca, 5 mEq Mg , 35 mEq Cl, 29.5 mEq acetate per 20 mL Sodium phosphate 0 MMol Sodium chloride 0 mEq Sodium acetate 0 mEq Potassium phosphate 21 mMol Potassium chloride 0 mEq Potassium acetate 60 mEq Magnesium sulfate 4.06 mEq Calcium gluconate 0 mEq Multivitamins 10 mL Trace Elements 1 mL Additional additives: Thiamine 100 mg + Folic Acid 1 mg Total volume 2000 mL to be infused over 24 hrs will provide 1295 kcal/day Labs, as indicated, will be ordered per protocol Pharmacy will continue to follow and adjust parenteral nutrition orders on a daily basis. Thank you for allowing us to participate in the care of this patient.
--- NOTE | 2017-01-26 12:21 | DIAGNOSTIC IMAGING REPORT ---
VIDEO SWALLOW STUDY CLINICAL HISTORY: Regurgitation and dysphagia. COMPARISON STUDY: No priors. Fluoroscopy time: 0.7 minutes. FINDINGS: Fluoroscopic guidance is provided to the Department of Speech Pathology in performing a video swallow study. The patient consumed thin barium and the swallowing mechanism was observed in real-time. The patient declined assessment of the additional textures. No penetration or aspiration was seen with thin barium. IMPRESSION: 1. No penetration or aspiration was seen with thin barium. 2. The patient declined assessment of additional textures. Dictated: 01/26/2017 11:53 AM Transcribed: 01/26/2017 12:19 PM ALBERTO_Victor Hugo Electronically signed by: Jez Avina M.D. 01/26/2017 12:36 PM Dictated Date/Time: 01/26/2017 11:53 AM
[2017-01-26] MEDS: PANTOprazole SOD 40 MG TAB PO SCH ×2 (14:23→21:46)
[2017-01-26] MEDS ORDERED: CUSTOM CENTRAL PN 1 BAG IV SCH (16:00)
--- NOTE | 2017-01-26 16:48 | Psych Management Progress Note ---
Psychiatry Miscellaneous Date of Service: Jan 26, 2017. Interim progress reviewed. Case discussed with Dr. Tyler. Patient on TPN so rehab placement needed to be changed, no GI cause identified per Dr. Tyler. Reviewed given poor PO a empiric trial of Remeron would be indicated and she will discuss with family. If starting psychiatric medication should have follow up--liaison to check with family on preferences following rehab--for example PCP monitoring vs [facility]. Patients with similar presentations historically may also respond to Ritalin as more alert and better sense of wellbeing, obviously if appropriate from cardiovascular standpoint. I will ask Dr. Doty to reassess patient tomorrow as geriatric psychiatrist and performed initial consultation. As reviewed that perhaps should have additional stroke work up if personality change after surgery, etc and family reportedly denying baseline dementia (MRI more sensitive than head CT).
[2017-01-27 05:50] LABS: HEMATOCRIT 25.7 % (37-47); MEAN CELL VOLUME 90.5 fL (80-100); MEAN CORPUSCULAR HEMOGLOBIN 29.2 pg (25-34); MEAN CORPUSCULAR HGB CONC 32.3 g/dl (32-36); MEAN PLATELET VOLUME 9.7 fL (7.4-10.4); PLATELET COUNT 207 K/uL (130-400); RED BLOOD COUNT 2.84 M/uL (4.2-5.4); WHITE BLOOD COUNT 7.54 K/uL (4.8-10.8)
[2017-01-27 06:21] LABS: CALCIUM 7.7 mg/dl (8.5-10.1); CREATININE 1.6 mg/dl (0.60-1.20); MAGNESIUM 2.3 mg/dl (1.8-2.4)
[2017-01-27] MEDS: HEPARIN SOD 5000 UNIT/0.5 ML CARP SQ SCH ×2 (06:28→13:27)
[2017-01-27 07:26] VITALS: BP 125/69; PULSE 78; TEMP 36.5; O2SAT 98
[2017-01-27] MEDS: CALCIUM 600MG + VIT D 400 IU TAB PO SCH (07:45)
[2017-01-27] MEDS: CARVEDILOL 3.125 MG TAB PO SCH (07:45)
[2017-01-27] MEDS: CYANOCOBALAMIN 1000 MCG/ML VIAL IM SCH (07:45)
[2017-01-27] MEDS: POTASSIUM CHLORIDE PWD 20 MEQ PACK PO SCH (07:45)
[2017-01-27] MEDS: MAGNESIUM CHLORIDE 64MG DELAYED REL TAB PO SCH (07:45)
[2017-01-27] MEDS: PANTOprazole SOD 40 MG TAB PO SCH (07:45)
[2017-01-27] MEDS: VITAMIN B COMPLEX TAB PO SCH (07:45)
[2017-01-27] MEDS: CHOLECALCIFEROL 1000 INTER.UNIT TAB PO SCH (07:46)
[2017-01-27 08:00] VITALS: O2SAT 98
--- NOTE | 2017-01-27 10:24 | DIAGNOSTIC IMAGING REPORT ---
MRI OF THE BRAIN WITHOUT IV CONTRAST CLINICAL HISTORY: Change in mental status. COMPARISON STUDY: CT of the brain dated 01/18/2017. TECHNIQUE: MRI of the brain was performed utilizing various T1 and T2-weighted sequences in the axial, sagittal, and coronal planes. IV contrast was not administered for this examination. The examination is degraded by motion artifact. FINDINGS: Brain parenchyma: There are age-related involutional changes noting advanced confluent subcortical and periventricular microangiopathic disease. There is no hemorrhage or mass effect. There is no restricted diffusion to suggest acute ischemia. Kelly-white matter differentiation is preserved. No extra-axial fluid collection is seen. The cerebellar tonsils are normal in configuration. Ventricles, sulci, and cisterns: Prominent secondary to involutional change. Pituitary and sella: Unremarkable. Intracranial vasculature: Normal flow voids are maintained at the skull base. Orbits: The bony orbits are grossly intact. Orbital contents are normal in appearance. Sinuses and mastoids: Clear. Calvarium: Unremarkable. Cervical cord: Partially visualized cervical spinal cord is normal in morphology and signal intensity. IMPRESSION: No acute intracranial abnormality noting a motion degraded examination. Electronically signed by: Jez Avina M.D. 01/27/2017 10:22 AM Dictated Date/Time: 01/27/2017 10:19 AM
--- NOTE | 2017-01-27 12:30 | Progress Note ---
Internal Med Progress Note Date of Service: Jan 27, 2017. Provider Documentation: SUBJECTIVE: Patient is doing much better today. Awake, oriented x 2. Knows who is the president of [employer]. Had her breakfast, but continues to have minimal PO intake Denies any pain anywhere. No chest pain, abd pain, nausea, fever, chills. OBJECTIVE: Vital Signs-as noted below Exam: General-AAOX 2, no distress Neck-no neck masses Lungs-cta b/l no added sounds Heart-s1 and s2 heard no murmurs Abdomen-soft bowel sounds no distension non tender Extremities-no edema no erythema Neuro-Grossly no focal deficits Lab data as noted below. ASSESSMENT & PLAN: ASSESSMENT & PLAN : 76F presented with confusion and lethargy. Per family, post surgery -hip fracture repair in October 2016, she started deteriorating - mentally and decreased appetite. It continued to worsen progressively. No prior hx of dementia. Initially thought from hypernatremia but mental status didn't improved though hypernatremia improved..Seen by nephrology and neurology and psychiatry. Possible failure to thrive as patient doesn't want to eat and refuses on and off. Family thinks some problem with swallowing but had barium swallow at [place] which was unremarkable. Family requested to start on TPN and see if patient improves. Started TPN by Dr Beltrán on 01/24/17. ALTERED MENTAL STATUS: Improved Mental status today- Awake, alert, oriented to place, person. Knows her , who is the president of [employer]. Continues to have poor appetite though. I think more likely psychological component contributing - ? pseudodementia, Depression as has progressively worsened post surgery. Prior to that she was independent, living alone, driving, shopping -active life. Does refuse to eat and cooperate on and off per her wishes. D/D considered: Metabolic encephalopathy, Delirium with possible dementia ( though no official diagnosis prior to admission and symptoms started 2-3 months ago post hip surgery in 10/2016), Hypernatremia contributing. Stroke ruled out by negative MRI. -Work up- Thiamine - low, < 7, Folate- low, Vitamin B12- normal, TSH- normal , RPR, Lymes- negative, Hypernatremia- resolved, Repeat CT head x 2 negative. -Supplement folic acid, thiamine through TPN -Discussed with psychiatry- recommends Remeron 15 mg q HS (started today 4/19/ 17) which would help appetite stimulation, mood stabilization,. Will need to be followed up outpatient. -Neurology, Psychiatry inputs appreciated. Neurology signed off. POSSIBLE DYSPHAGIA /FAILURE TO THRIVE : Patient has been going down hill since her hip fracture months ago, for many weeks prior to admission has not been eating. Throughout hospital course, has at times refused to eat. Per RN, does gag while eating, does tend to bring up greenish, bilous secretions after eating, not much swallowing issues though. Has had this issue for few weeks prior to admission, had Barium swallow at [facility]- negative -To some extent, her refusing to eat ?? psychological component could be playing a role too. -Speech swallow evaluation --> Video swallow test - No aspiration/penetration, refused to try other textures. -On mechanical soft diet - minimal PO intake -On TPN started on 01/23/17; Had refused cor safe , feeding tube. -Discussed with GI- who had a discussion with patient- refusing feeding tube and may not be beneficial at this point. Thinks this could be secondary to recent AMS, No intervention at this point per GI S/P TRANSIENT WENCKEBACH BLOCK Noted on tele strip for 20 seconds, while she vomiting , likely related to it with increased vagal tone (noted on 02/03/17) -Cardiology consulted - likely related to vomiting, no intervention or further cardiac monitoring indicated ACUTE KIDNEY INJURY VS CKD ? - Improved No prior labs in EMR. Likely baseline seems to be 1.4-1.5 Secondary to DEHYDRATION due to poor oral intake -S/P IVF -On TPN -Repeat BMP in 3 days HYPERNATREMIA, LIKELY HYPOVOLEMIC Came with Na 151 --> resolved--> 147 -Minimal PO intake, so need to maintain water intake on a regular basis by nursing -S/P IVF -Increased volume of TPN to 85 cc/hour on 01/26/17. -Repeat BMP in 3 days -Nephrology + ELEVATED LACTIC ACID - Resolved Noted to be elevated on 01/19/17 which normalized -CT scan abd/pelvis- mild colonic ileus, US gall bladder- gall stone filled GB, No cholecystitis, FOBT negative. Follow up [facility]- unremarkable -Appreciate surgery inputs- no surgical intervention recommended ACUTE ON CHRONIC ANEMIA-stable now - HB dropped to 7.4 with a questionable coffee ground emesis few days ago -S/P 2 units PRBCs since admission -Work up- FOBT - negative, CT scan abd/pelvis- as above MILD ELEVATION OF TROPONIN : -Trended down and normalized -Echo- EF 60-65%, Gd I diastolic dysfunction, Trace AR, No wall motion abnormalities POSSIBLE UTI : UA grossly positive - Grew yenni -S/P IV rocephin which was discontinued -Asymptomatic NUTRITION -On mechanical soft diet- minimal PO intake -On IV TPN started on 01/24/17 due to poor intake/family request -Psychological component could be contributing to her refusing to eat. Refused invasive testing for possible dysphagia. Had a barium swallow at [facility]- negative, Video swallow test- no aspiration/Penetration, not too cooperative -If no improvement in few days, strongly consider discontinuation. Discussed the risks of TPN with family. Agreeable with the plan. CODE STATUS DNR Dr Beltrán d/W daughter and patient is DNR DVT PROPHYLAXIS -Hep sub q -SCDs DISPOSITION Discussed at length with daughters yesterday about goals of care. Difficult to predict how she would do in terms of PO intake. On TPN to maintain nutrition, but this will only be temporary. Understands and would want to continue it for few days. If no improvement, plan is to take her off it. DNR/DNI confirmed. Agreeable with discharge plan - You saavedra today Vital Signs: Date Time Temp Pulse Resp B/P Pulse Ox O2 Delivery O2 Flow Rate FiO2 01/27/17 08:00 98 Room Air 01/27/17 07:26 36.5 78 20 125/69 98 01/27/17 00:05 Room Air 01/26/17 23:59 36.9 79 20 145/71 96 01/26/17 21:44 80 131/75 98 Room Air 01/26/17 16:00 96 Room Air 01/26/17 14:46 37.2 85 20 126/74 96 Lab Results: Results Past 24 Hours Test 01/26/17 18:04 01/27/17 05:40 01/27/17 07:00 01/27/17 11:28 Range/Units Bedside Glucose 110 107 106 70-90 mg/dl White Blood Count 7.54 4.8-10.8 K/uL Red Blood Count 2.84 4.2-5.4 M/uL Hemoglobin 8.3 12.0-16.0 g/dL Hematocrit 25.7 37-47 % Mean Corpuscular Volume 90.5 80-100 fL Mean Corpuscular Hemoglobin 29.2 25-34 pg Mean Corpuscular Hemoglobin Concent 32.3 32-36 g/dl RDW Standard Deviation 45.7 36.4-46.3 fL RDW Coefficient of Variation 14.2 11.5-14.5 % Platelet Count 207 130-400 K/uL Mean Platelet Volume 9.7 7.4-10.4 fL Sodium Level 147 136-145 mmol/L Potassium Level 4.0 3.5-5.1 mmol/L Chloride Level 111 98-107 mmol/L Carbon Dioxide Level 32 21-32 mmol/L Anion Gap 4.0 3-11 mmol/L Blood Urea Nitrogen 37 7-18 mg/dl Creatinine 1.60 0.60-1.20 mg/dl Est Creatinine Clear Calc Drug Dose 26.6 ml/min Estimated GFR () 36.4 Estimated GFR (Non- 31.4 BUN/Creatinine Ratio 23.0 10-20 Random Glucose 109 70-99 mg/dl Calcium Level 7.7 8.5-10.1 mg/dl Phosphorus Level 4.0 2.5-4.9 mg/dl Magnesium Level 2.3 1.8-2.4 mg/dl
[2017-01-27] MEDS ORDERED: MIRT15TA3 PO (12:32)
[2017-01-27] MEDS ORDERED: CALCTAB7 PO (12:32)
[2017-01-27] MEDS ORDERED: PANT40TA PO (12:32)
[2017-01-27] MEDS ORDERED: OXYC-164 PO (12:32)
--- NOTE | 2017-01-27 12:36 | Discharge Instructions ---
Discharge Instructions Date of Service Jan 27, 2017. Admission Reason for Admission: Acute Renal Failure, Elevated Troponin, Poor Fluid Discharge Discharge Diagnosis / Problem: 1. Altered mental status 2. Hypernatremia 3. Failure to thrive Discharge Goals Goal(s): Decrease discomfort, Improve function, Increase independence Activity Recommendations Activity Limitations: resume your previous activity (as tolerated- Needs motivation to ambulate. PT/OT recommended) . Instructions / Follow-Up Instructions / Follow-Up MEDICATION CHANGES: 1. New medication: Remeron 15 mg q HS 2. Increase Protonix 40 mg PO BID from 40 mg PO daily due to bilious secretions post eating 3. Need to give water - around 300 cc every 6 hours while awake as minimal PO intake to avoid dehydration/hypernatremia NUTRITION -Started on TPN on 01/24/17 with thiamine, multivitamin supplementation. -Strongly need to consider discontinuation of TPN if no improvement and continues to refuse eating due to psychological issues. FOLLOW UP 1. Follow up with PCP In 1 week 2. Follow up with Dr Vaishali Blum (psychiatry) on 02/23/17 at 1:00 PM MONITOR -BMP in 3 days 01/30/17 to follow up on hypernatremia, Creatinine levels Current Hospital Diet Patient's current hospital diet: Regular Diet Discharge Diet Recommended Diet: Regular Diet (Needs motivation to eat) Pending Studies Studies pending at discharge: no Laboratory Results Lipid Panel Test 01/16/17 07:11 01/25/17 06:26 Range/Units Triglycerides Level 213 H 217 H 0-150 mg/dl Cholesterol Level 182 0-200 mg/dl HDL Cholesterol 42 mg/dl Cholesterol/HDL Ratio 4.3 LDL Cholesterol, Calculated 97 mg/dl Medical Emergencies . Who to Call and When: Medical Emergencies: If at any time you feel your situation is an emergency, please call 911 immediately. . Non-Emergent Contact Non-Emergency issues call your: Primary Care Provider . . "Provider Documentation" section prepared by Nicole Tyler. . VTE Core Measure Inpt VTE Proph given/why not?: Unfractionated heparin SQ
--- NOTE | 2017-01-27 12:41 | Discharge Summary ---
Discharge Summary Date of Service Jan 27, 2017. Discharge Summary Admission Date: Jan 15, 2017 at 01:39 Discharge Date: Jan 27, 2017 Discharge Disposition: nursing home facility ([facility]) Principal Diagnosis: 1. Altered mental status, possible depression contributing 2. Failure to thrive 3. Hypernatremia, hypovolemic 4. Mildly elevated troponin, less likely cardiac 5. Acute on chronic anemia Secondary Diagnoses/Problems: 1. Hx of recent hip fracture repair 2. Physical deconditioning Procedures: CT head x 2 CT abd/pelvis CXR/Abd x ray KUB Video swallow test MRI brain Consultations: Neurology Nephrology Psychiatry GI Speech rx PT/OT Pending Studies/Follow-Up: Instructions / Follow-Up Instructions / Follow-Up MEDICATION CHANGES: 1. New medication: Remeron 15 mg q HS 2. Increase Protonix 40 mg PO BID from 40 mg PO daily due to bilious secretions post eating 3. Need to give water - around 300 cc every 6 hours while awake as minimal PO intake to avoid dehydration/hypernatremia NUTRITION -Started on TPN on 01/24/17 with thiamine, multivitamin supplementation. -Strongly need to consider discontinuation of TPN if no improvement and continues to refuse eating due to psychological issues. FOLLOW UP 1. Follow up with PCP In 1 week MONITOR -BMP in 3 days 01/30/17 to follow up on hypernatremia, Creatinine levels Medication Reconciliation New Medications: Mirtazapine (Remeron) 15 Mg Tab 1 TAB PO HS for 30 Days, #30 TAB 3 Refills Calcium Carbonate-Vitamin D W/ (Caltrate 600 Plus) 1 Tab Tab 1 TAB PO BID for 30 Days, #60 TAB Changed Medications: Pantoprazole (Protonix) 40 Mg Tab 40 MG PO BID for 30 Days, #60 TAB (Changed from: DAILY) Continued Medications: Acetaminophen Tab (Tylenol) 325 Mg Tab 650 MG PO Q4H PRN for Pain, TAB NEEDED FOR PAIN RATED 1-3 ON A SCALE OF "0-10". DO NOT EXCEED 3 GM APAP/DAY. Bisacodyl (Dulcolax) 10 Mg Sup 1 SUPP AL UD PRN for Constipation, SUP NEEDED EVERY 3 DAYS IF MOM INEFFECTIVE Carvedilol (Coreg) 3.125 Mg Tab 3.125 MG PO BID, TAB Diphenhydramine Citrate-Aspiri (Vijaya Pm) 1 Tab Tab 1 TAB PO Q6H PRN for Itching Ferrous Sulfate (Ferrous Sulfate) 325 Mg Tab 325 MG PO DAILY Magnesium Hydroxide (Milk Of Magnesia) 30 Ml Susp 30 ML PO UD PRN for Constipation, ML NEEDED EVERY DAY FOR NO BOWEL MOVEMENT FOR 7 SHIFTS Melatonin (Melatonin) 3 Mg Tab 3 MG PO HS Ondansetron Hcl (Zofran) 4 Mg Tab 4 MG PO Q6H PRN for Nausea, TAB Oxycodone Hcl (Oxycodone Hcl) 10 Mg Tab 10 MG PO Q8 PRN for Severe Pain, #30 TAB (This prescription has been renewed) NEEDED FOR SEVERE PAIN RATED 7-10 ON A SCALE OF "0-10". Potassium Chloride Microencaps (Potassium Chloride Er) 20 Meq Tab 20 MEQ PO DAILY, TAB Senna (Senokot) 8.6 Mg Tab 17.2 MG PO DAILY, TAB HOLD FOR LOOSE STOOLS Sodium Phosphate/Biphosphate (Fleet Enema) Estephania 1 EA AL UD PRN for Constipation, BTL NEEDED EVERY 3 DAYS IF DULCOLAX SUPPOSITORY WAS INEFFECTIVE Discontinued Medications: Tramadol (Ultram) 50 Mg Tab 50 MG PO Q8H PRN for Moderate Pain, TAB NEEDED FOR MODERATE PAIN RATED 4-6 ON A SCALE OF "0-10" Admission Information HPI (per Admitting provider): This is a 76 yo F sent to [facility] with complain of generalized weakness, dehydration , poor PO intake pt was recently admitted to [facility] for Sepsis /JAJA , discharged to [facility] yesterday for continued rehab in the group home -pt was found to be confused, increased somnolence , lethargy , no PO intake since arrival to [place] , with decreased urine out put unable to get any history form the patient for confusion , altered mental status pt was found to be severely dehydrated with JAJA , hypernatremia possible UTI Physical Exam (per Admitting): General Appearance: no apparent distress Eyes: sclerae normal ENT: + pertinent finding (dry oral mucosa ) Respiratory/Chest: lungs clear, normal breath sounds, no respiratory distress Cardiovascular: regular rate, rhythm Abdomen/GI: non tender, soft Extremities/Musculoskelatal: no pedal edema Neurologic/Psych: + disoriented, + pertinent finding (lethergic , unable to answer simple questions ) Hospital Course ASSESSMENT & PLAN : 76F presented with confusion and lethargy. Per family, post surgery -hip fracture repair in October 2016, she started deteriorating - mentally and decreased appetite. It continued to worsen progressively. No prior hx of dementia. Initially thought from hypernatremia but mental status didn't improved though hypernatremia improved..Seen by nephrology and neurology and psychiatry. Possible failure to thrive as patient doesn't want to eat and refuses on and off. Family thinks some problem with swallowing but had barium swallow at [place] which was unremarkable. Family requested to start on TPN and see if patient improves. Started TPN by Dr Beltrán on 01/24/17. ALTERED MENTAL STATUS: Improved Mental status today- Awake, alert, oriented to place, person. Knows her , who is the president of [employer]. Continues to have poor appetite though. I think more likely psychological component contributing - ? pseudodementia, Depression as has progressively worsened post surgery. Prior to that she was independent, living alone, driving, shopping -active life. Does refuse to eat and cooperate on and off per her wishes. D/D considered: Metabolic encephalopathy, Delirium with possible dementia ( though no official diagnosis prior to admission and symptoms started 2-3 months ago post hip surgery in 10/2016), Hypernatremia contributing. Stroke ruled out by negative MRI. -Work up- Thiamine - low, < 7, Folate- low, Vitamin B12- normal, TSH- normal , RPR, Lymes- negative, Hypernatremia- resolved, Repeat CT head x 2 negative. -Supplement folic acid, thiamine through TPN -Discussed with psychiatry- recommends Remeron 15 mg q HS (started today ) which would help appetite stimulation, mood stabilization,. Will need to be followed up outpatient. -Neurology, Psychiatry inputs appreciated. Neurology signed off. POSSIBLE DYSPHAGIA /FAILURE TO THRIVE : Patient has been going down hill since her hip fracture months ago, for many weeks prior to admission has not been eating. Throughout hospital course, has at times refused to eat. Per RN, does gag while eating, does tend to bring up greenish, bilous secretions after eating, not much swallowing issues though. Has had this issue for few weeks prior to admission, had Barium swallow at [facility]- negative -To some extent, her refusing to eat ?? psychological component could be playing a role too. -Speech swallow evaluation --> Video swallow test - No aspiration/penetration, refused to try other textures. -On mechanical soft diet - minimal PO intake -On TPN started on 01/23/17; Had refused cor safe , feeding tube. -Discussed with GI- who had a discussion with patient- refusing feeding tube and may not be beneficial at this point. Thinks this could be secondary to recent AMS, No intervention at this point per GI. Increased protonix to 40 mg PO BID from daily S/P TRANSIENT [place] BLOCK Noted on tele strip for 20 seconds, while she vomiting , likely related to it with increased vagal tone (noted on 02/03/17) -Cardiology consulted - likely related to vomiting, no intervention or further cardiac monitoring indicated ACUTE KIDNEY INJURY VS CKD ? - Improved No prior labs in EMR. Likely baseline seems to be 1.4-1.5 Secondary to DEHYDRATION due to poor oral intake -S/P IVF -On TPN -Repeat BMP in 3 days HYPERNATREMIA, LIKELY HYPOVOLEMIC Came with Na 151 --> resolved--> 147 -Minimal PO intake, so need to maintain water intake on a regular basis by nursing -S/P IVF -Increased volume of TPN to 85 cc/hour on 01/26/17. -Repeat BMP in 3 days -Nephrology + ELEVATED LACTIC ACID - Resolved Noted to be elevated on 01/19/17 which normalized -CT scan abd/pelvis- mild colonic ileus, US gall bladder- gall stone filled GB, No cholecystitis, FOBT negative. Follow up KUB- unremarkable -Appreciate surgery inputs- no surgical intervention recommended ACUTE ON CHRONIC ANEMIA-stable now - HB dropped to 7.4 with a questionable coffee ground emesis few days ago -S/P 2 units PRBCs since admission -Work up- FOBT - negative, CT scan abd/pelvis- as above MILD ELEVATION OF TROPONIN : -Trended down and normalized -Echo- EF 60-65%, Gd I diastolic dysfunction, Trace AR, No wall motion abnormalities POSSIBLE UTI : UA grossly positive - Grew yenni -S/P IV rocephin which was discontinued -Asymptomatic NUTRITION -On mechanical soft diet- minimal PO intake -On IV TPN started on 01/24/17 due to poor intake/family request -Psychological component could be contributing to her refusing to eat. Refused invasive testing for possible dysphagia. Had a barium swallow at [place]- negative, Video swallow test- no aspiration/Penetration, not too cooperative -If no improvement in few days, strongly consider discontinuation. Discussed the risks of TPN with family. Agreeable with the plan. CODE STATUS DNR Dr Beltrán d/W daughter and patient is DNR DVT PROPHYLAXIS -Hep sub q -SCDs DISPOSITION Discussed at length with daughters yesterday about goals of care. Difficult to predict how she would do in terms of PO intake. On TPN to maintain nutrition, but this will only be temporary. Understands and would want to continue it for few days. If no improvement, plan is to take her off it. DNR/DNI confirmed. Agreeable with discharge plan - You saavedra today Total time spent on discharge = 40 minutes This includes examination of the patient, discharge planning, medication reconciliation, and communication with other providers. Discharge Instructions Discharge Discharge Diagnosis / Problem: 1. Altered mental status 2. Hypernatremia 3. Failure to thrive Discharge Goals Goal(s): Decrease discomfort, Improve function, Increase independence Activity Recommendations Activity Limitations: resume your previous activity (as tolerated- Needs motivation to ambulate. PT/OT recommended) . Instructions / Follow-Up Instructions / Follow-Up MEDICATION CHANGES: 1. New medication: Remeron 15 mg q HS 2. Increase Protonix 40 mg PO BID from 40 mg PO daily due to bilious secretions post eating NUTRITION -Started on TPN on 01/24/17 with thiamine, multivitamin supplementation. -Strongly need to consider discontinuation of TPN if no improvement and continues to refuse eating due to psychological issues. FOLLOW UP 1. Follow up with PCP In 1 week 2. Follow up with Dr Blum (psychiatry) on 02/23/17 at 1:00 PM MONITOR -BMP in 3 days 01/30/17 to follow up on hypernatremia, Creatinine levels Current Hospital Diet Patient's current hospital diet: Regular Diet Discharge Diet Recommended Diet: Regular Diet (Needs motivation to eat) Pending Studies Studies pending at discharge: no Laboratory Results Lipid Panel Test 01/16/17 07:11 01/25/17 06:26 Range/Units Triglycerides Level 213 H 217 H 0-150 mg/dl Cholesterol Level 182 0-200 mg/dl HDL Cholesterol 42 mg/dl Cholesterol/HDL Ratio 4.3 LDL Cholesterol, Calculated 97 mg/dl Medical Emergencies . Who to Call and When: Medical Emergencies: If at any time you feel your situation is an emergency, please call 911 immediately. . Non-Emergent Contact Non-Emergency issues call your: Primary Care Provider . . "Provider Documentation" section prepared by Nicole Tyler. . VTE Core Measure Inpt VTE Proph given/why not?: Unfractionated heparin SQ
[2017-01-27 13:03] VITALS: BP 125/69; PULSE 78; TEMP 36.5; O2SAT 98
[2017-01-27] MEDS ORDERED: CUSTOM CENTRAL PN 1 BAG IV SCH (16:00)
== END 2017-01-27 16:29 | DRG 682 ==
LOC: ENRESERVDT → ENRESERVTM → EDBD 22:24 → C.EDB 22:29 → C.MED 01-15 01:39
PROVIDERS: ADMIT Hospitalist; ATTEND Internal Medicine
DX: N17.9 Acute kidney failure, unspecified (principal); G93.41 Metabolic encephalopathy; E87.0 Hyperosmolality and hypernatremia; N39.0 Urinary tract infection, site not specified; E46 Unspecified protein-calorie malnutrition; E87.1 Hypo-osmolality and hyponatremia; K56.7 Ileus, unspecified; R62.7 Adult failure to thrive; E86.0 Dehydration; F32.9 Major depressive disorder, single episode, unspecified; F03.90 Unspecified dementia, unspecified severity, without behavioral disturbance, psychotic disturbance, mood disturbance, and anxiety; E87.8 Other disorders of electrolyte and fluid balance, not elsewhere classified; E53.8 Deficiency of other specified B group vitamins; E87.6 Hypokalemia; N18.9 Chronic kidney disease, unspecified; I12.9 Hypertensive chronic kidney disease with stage 1 through stage 4 chronic kidney disease, or unspecified chronic kidney disease; G35 Multiple sclerosis; E87.5 Hyperkalemia; Z66 Do not resuscitate; D64.9 Anemia, unspecified; K80.20 Calculus of gallbladder without cholecystitis without obstruction; Z79.82 Long term (current) use of aspirin